=== PATIENT | female | born 1940 | race Caucasian/White ===

== ENCOUNTER → 2019-09-22 13:17 | Outpatient (CLI) | payer OTHER, SELFPAY ==
--- NOTE | ~2019-09-22 | MM_ITS ---
EXAMINATION: MM screening dmitri BI w rosario HISTORY: Screening mammogram TECHNIQUE: Craniocaudal and mediolateral oblique 3-D tomosynthesis images were obtained and synthetic 2-D images were generated. CAD analysis was submitted and interpreted. COMPARISON: Comparison to multiple prior studies sequentially, with oldest reviewed study dated 06/08. BREAST PARENCHYMAL COMPOSITION: There are scattered areas of fibroglandular density. FINDINGS: There is no evidence of suspicious mass, calcification, or architectural distortion to sugg est malignancy in either breast. There has been no suspicious interval change. IMPRESSION: 1. No mammographic evidence of malignancy. 2. Recommend routine screening mammography in one year. BI-RADS Category 1: Negative Reviewed, dictated and finalized at location A.
== END ==
PROVIDERS: PCP Family Medicine; Visit Provider Family Medicine
DX: Z12.31 Encounter for screening mammogram for malignant neoplasm of breast (principal)
CPT/HCPCS: 77063; 77067

== ENCOUNTER → 2020-11-10 15:28 | Outpatient (CLI) | payer OTHER, SELFPAY ==
--- NOTE | ~2020-11-10 | MM_ITS ---
EXAMINATION: MM screening dmitri BI w rosario HISTORY: Screening TECHNIQUE: Craniocaudal and mediolateral oblique 3-D tomosynthesis images were obtained and synthetic 2-D images were generated. CAD analysis was submitted and interpreted. COMPARISON: Comparison to multiple prior studies sequentially, with oldest reviewed study dated 07/26. BREAST PARENCHYMAL COMPOSITION: There are scattered areas of fibroglandular density. FINDINGS: There is no evidence of suspicious mass, calcification, or architectural distortion to sugg est malignancy in either breast. There has been no suspicious interval change. IMPRESSION: 1. No mammographic evidence of malignancy. 2. Recommend routine screening mammography in one year. BI-RADS Category 1: Negative Reviewed, dictated and finalized at location A.
== END ==
PROVIDERS: PCP Family Medicine; Visit Provider Family Medicine
DX: Z12.31 Encounter for screening mammogram for malignant neoplasm of breast (principal)
CPT/HCPCS: 77063; 77067

== ENCOUNTER → 2021-07-26 09:39 | Outpatient (CLI) | payer OTHER, SELFPAY ==
--- NOTE | ~2021-07-26 | XR_ITS ---
XR lumbar spine 2-3V DATE: 07/26/2021 09:59 INDICATION: Sciatica TECHNIQUE: AP, lateral, coned lateral lumbosacral views COMPARISON: None FINDINGS: There is mild levoscoliosis of the lower thoracic and lumbar spine. There is diffuse osteopenia. There is severe degenerative change at the apophyseal joints of the lumbar and lumbosacral spine with associated borderline grade 1/grade 2 anterolisthesis at L4-5 and grade 1 anterolisthesis at L5-S1. There is severe degenerative disc disease throughout the lumbar and lumbosacral spine including loss of disc space height, vacuum phenomenon and degenerative spurring. No fracture or bone destruction is evident. The included lower thoracic and lumbar pedicles are intac t. The sacroiliac joints are intact. Abdominal aortic calcification is noted, without apparent aneurysm. IMPRESSION: Diffuse osteopenia Mild levoscoliosis Severe degenerative disc disease throughout the lumbar and lumbosacral spine Borderline grade 1/grade 2 anterolisthesis at L4-5 and grade 1 anterolisthesis at L5-S1 due to severe degenerative change at the apophyseal joints Reviewed, dictated and finalized at location A. K FITTER
== END ==
PROVIDERS: PCP Family Medicine; Visit Provider Family Medicine
DX: M54.30 Sciatica, unspecified side (principal); M85.88 Other specified disorders of bone density and structure, other site; M51.36 Other intervertebral disc degeneration, lumbar region; M43.16 Spondylolisthesis, lumbar region
CPT/HCPCS: 72100

== ENCOUNTER → 2021-08-08 07:23 | Outpatient (CLI) | payer OTHER, SELFPAY ==
--- NOTE | ~2021-08-08 | MR_ITS ---
EXAMINATION: MR lumbar spine wo con DATE: 08/08/2021 08:36 INDICATION: Lumbar spinal stenosis. TECHNIQUE: Magnetic resonance imaging (MRI) of the lumbar spine was performed without intravenous con trast. Sequences included sagittal T2-weighted FSE, sagittal T2-weighted FS FSE, sagittal T1-weighted FSE, and axial T2-weighted FSE. COMPARISON: Lumbar radiographs dated 07/26/2021 FINDINGS: Mild upper lumbar levocurvature. 6 mm anterolisthesis L4 on L5 and 4-5 mm anterolisthesis L5 on S1. V ertebral body heights are normal. T1 hyperintense hemangiomas at T10 and L2. Probable fatty and fibro vascular degenerative endplate changes at several levels in the lumbar spine. Marrow signal is otherw ise normal. Annular fissures at L1-L2 through L5-S1. Severe right-sided predominant disc height loss at L1-L2. Moderate to severe disc height loss at L4-L5, with right side predominance at L1-L2 and L2- L3 and left side predominance at L3-L4. Mild to moderate disc height loss at L5-S1. Mild right-sided predominant disc height loss at T12-L1. The conus medullaris terminates at L2. There is normal signal in the caudal spinal cord. 7.7 cm left renal cyst. Paravertebral soft tissues are unremarkable. The following disc levels are specifically discussed: T12-L1: Disc is mildly bulging with small central disc protrusion. There is mild bilateral facet join t osteoarthritis. There is no neural foraminal stenosis. There is mild central canal stenosis. L1-L2: Disc is bulging. There is mild left and moderate right facet joint osteoarthritis. There is mi ld left and moderate right neural foraminal stenosis. There is mild central canal stenosis. L2-L3: Disc is bulging. There is hypertrophy of the ligamentum flavum. There is moderate bilateral f acet joint osteoarthritis. There is mild to moderate left and moderate right neural foraminal stenosi s. There is mild to moderate central canal stenosis. L3-L4: Disc is bulging. There is hypertrophy of the ligamentum flavum. There is moderate to severe bi lateral facet joint osteoarthritis. There is moderate right and moderate to severe left neural forami nal stenosis. There is moderate to severe central canal stenosis. L4-L5: Disc is bulging. There is hypertrophy of the ligamentum flavum. There is severe bilateral face t joint osteoarthritis. There is moderate right and moderate to severe left neural foraminal stenosis . There is severe central canal stenosis. L5-S1: Disc is bulging. There is a 6 mm diameter disc extrusion versus sequestered disc fragment at t he anterior aspect of the right neural foramen. There is severe bilateral facet joint osteoarthritis. There is moderate bilateral neural foraminal stenosis. There is minimal central canal stenosis. IMPRESSION: 1. Severe lumbar spondylosis. Reviewed, dictated and finalized at location A. PHONE SOLICITOR
== END ==
PROVIDERS: PCP Family Medicine; Visit Provider Family Medicine
DX: M48.061 Spinal stenosis, lumbar region without neurogenic claudication (principal); M54.50 Low back pain, unspecified; M47.816 Spondylosis without myelopathy or radiculopathy, lumbar region
CPT/HCPCS: 72148

== ENCOUNTER → 2022-01-17 13:45 | Outpatient (CLI) | payer OTHER, SELFPAY ==
--- NOTE | ~2022-01-17 | MM_ITS ---
EXAMINATION: MM screening dmitri BI w rosario HISTORY: Screening mammogram, family history of breast cancer in her sister. TECHNIQUE: Craniocaudal and mediolateral oblique 3-D tomosynthesis images were obtained and synthetic 2-D images were generated. CAD analysis was submitted and interpreted. COMPARISON: 11/10/2020, 09/22/2019 BREAST PARENCHYMAL COMPOSITION: There are scattered areas of fibroglandular density. FINDINGS: RIGHT BREAST: There is no suspicious mass, calcification, or architectural distortion to suggest marissa gnancy. There has been no significant interval change. LEFT BREAST: There is a possible mass in the middle third outer breast 7 cm from the nipple. IMPRESSION: 1. Possible left breast mass. 2. Additional mammographic views and possible breast ultrasound are recommended. BI-RADS Category 0: Incomplete: Needs additional imaging evaluation. Reviewed, dictated and finalized at location A. IMPRESSION: 1. Possible left breast mass. 2. Additional mammographic views and possible breast ultrasound are recommended . BI-RADS Category 0: Incomplete: Needs additional imaging evaluation.
== END ==
PROVIDERS: PCP Family Medicine; Visit Provider Family Medicine
DX: Z12.31 Encounter for screening mammogram for malignant neoplasm of breast (principal); R92.8 Other abnormal and inconclusive findings on diagnostic imaging of breast
CPT/HCPCS: 77063; 77067

== ENCOUNTER 2022-01-20 08:53 | Emergency (ER) | payer OTHER, SELFPAY ==
--- NOTE | ~2022-01-20 | CT_ITS ---
EXAMINATION: CT brain wo con DATE: 01/20/2022 10:16 INDICATION: Ground-level fall, head injury. Patient struck back of head, right posterior cephalohemat vic. Baby aspirin nightly. TECHNIQUE: Computed tomography (CT) of the head was performed without intravenous contrast. The mA wa s adjusted according to patient size. Iterative reconstruction technique was employed. Exam dose: 60 5.33 mGy-cm total exam DLP. COMPARISON: None FINDINGS: Mild posterior right parietal cephalhematoma. No skull fracture. No acute intracranial coup or contrecoup injury is identified. No intracranial mass lesion or hemorrhage or cerebrovascular accident. No midline shift or mass effec t. Bilateral carotid siphon internal carotid artery calcifications. There is nonspecific diminished atte nuation of the cerebral white matter, likely due to chronic small vessel ischemic changes. No subdural or epidural hematoma. The mastoid air cells and included paranasal sinuses are normally developed and aerated. IMPRESSION: Mild right posterior parietal cephalohematoma; no skull fracture or acute intracranial fi nding Cerebral atherosclerosis and chronic small vessel ischemic changes of the cerebral white matter Reviewed, dictated and finalized at Location A. Reviewed, dictated and finalized at location A. IMPRESSION: Mild right posterior parietal cephalohematoma; no skull fracture or acute intracranial finding Cerebral atherosclerosis and chronic small vessel ischemic changes of the cereb ral white matter
[2022-01-20 08:56] VITALS: BP 106/57; PULSE 60; RESP 16; TEMP 36.3; O2SAT 97
--- NOTE | 2022-01-20 09:52 | ED.GENADULT ---
HPI - General Adult General Chief complaint: Fall Stated complaint: Fall, hit head Time Seen by Provider: 01/20/22 09:02 History of Present Illness HPI narrative: 81-year-old female presented to the emergency department for evaluation after having a mechanical fall this morning. Patient states she was bending over to turkey picker her glasses when she became dizzy and fell forward. Patient scraped her right hand on the dresser but also struck her back right head on the dresser as well. Patient denies any loss of consciousness. Related Data Home Medications Medication Instructions Recorded Confirmed aspirin 81 mg tablet,delayed 81 mg PO DAILY 06/08/19 11/21/21 release vthqles-mjaluleqx-kwtk tablet tablet PO 03/10/20 11/21/21 ginkgo biloba 120 mg tablet 120 mg PO DAILY 03/10/20 11/21/21 antiarthritic combination no.2 900 mg PO 03/21/21 11/21/21 mg tablet (glucosamine-chondroitin) Allergies Allergy/AdvReac Type Severity Reaction Status Date / Time clindamycin AdvReac Unknown Unknown Verified 01/20/22 08:55 Review of Systems Review of Systems: CONSTITUTIONAL: Head injury, see HPI EYES: Denies visual changes, redness, or discharge. ENT: Denies rhinorrhea, congestion, sore throat, or otalgia. CARDIOVASCULAR: Denies chest pain, palpitations, or edema. RESPIRATORY: Denies cough or dyspnea. GASTROINTESTINAL: Denies abdominal pain, nausea, vomiting, or diarrhea. GENITOURINARY: Denies dysuria or hematuria. SKIN: See HPI MUSCULOSKELETAL: Denies back pain, joint pain, or myalgia. NEUROLOGIC: Denies headache, numbness, or weakness. [facility] Past Medical History Medical History (Updated 01/20/22 @ 11:57 by Mitchell Hoff MD) Chest pain Obesity Family History Family History Sibling Hypertension Family history of diabetes mellitus in first degree relative Family history of coronary artery disease Mother Family history of diabetes mellitus in first degree relative Family history of coronary artery disease Father Family history of coronary artery disease Social History Social History Smoking status: Never smoker Second hand tobacco smoke exposure: No Alcohol intake: never Substance use: never Substance use type: does not use Gender identity (if verbalized by the patient): Female Sexual Orientation (if Verbalized by the Patient): Straight or Heterosexual Exam Narrative: APPEARANCE: Well appearing, no pain, no distress, well-nourished. HEAD: normocephalic, contusion to posterior right scalp, no laceration EYES: PERRLA/EOMI, conjunctivae clear. NOSE: Normal no drainage EARS:TMS clear with good light reflex. THROAT: Pharynx clear, no exudate. NECK: Supple. No adenopathy, no masses. RESPIRATORY: Airway patent, respirations nonlabored. Clear to auscultation bilaterally, no rales, rhonchi, wheezing. CARDIOVASCULAR: Regular rate and rhythm without murmurs rubs or gallops. ABDOMINAL: Soft, nontender, nondistended, normal bowel sounds MUSCULOSKELETAL: Moves all extremities. Strength/ROM intact, No edema, No calf tenderness. NEURO: Alert. Cranial nerves II through XII intact. Grossly intact SKIN: Superficial skin tear to right palm. Course Course Emergency Course: Patient's head CT was negative for any acute intracranial abnormality. Patient was able to ambulate at baseline. Patient's skin tear on right hand was treated and dressing was applied. Vital Signs Vital signs: Vital Signs Temperature 97.3 F L 01/20/22 08:56 Pulse Rate 60 01/20/22 08:56 Respiratory Rate 16 01/20/22 08:56 Blood Pressure 106/57 L 01/20/22 08:56 Pulse Oximetry 97 01/20/22 08:56 Oxygen Delivery Room Air 01/20/22 08:56 Temperature 97.3 F L 01/20/22 08:56 Pulse Rate 60 01/20/22 08:56 Respiratory Rate 16 01/20/22 08:56 Blood Pressure 106/57 L 01/20/22 08:56 Pulse Oximetry 97 01/20/22 08:5
== END 2022-01-20 13:00 | disposition home or self-care (01) ==
PROVIDERS: Emergency Provider Emergency Medicine; PCP Family Medicine
DX: S09.90XA Unspecified injury of head, initial encounter (principal); S60.511A Abrasion of right hand, initial encounter; E66.9 Obesity, unspecified; Z68.31 Body mass index [BMI] 31.0-31.9, adult; I67.2 Cerebral atherosclerosis; W18.39XA Other fall on same level, initial encounter
CPT/HCPCS: 70450; 99284

== ENCOUNTER → 2022-02-05 07:46 | Outpatient (CLI) | payer OTHER, SELFPAY ==
--- NOTE | ~2022-02-05 | MMUS_ITS ---
EXAMINATION: MM diagnostic dmitri LT w rosario, US breast LT limited HISTORY: Breast composed of scattered areas of fibroglandular density TECHNIQUE: Additional 3-D tomosynthesis images of the left breast were performed and synthetic 2-D im ages were generated. CAD analysis was submitted and interpreted. High resolution Limited left breast ultrasound was performed. COMPARISON: 01/17/2022 BREAST PARENCHYMAL COMPOSITION: Breast composed of scattered areas of fibroglandular density FINDINGS: MAMMOGRAPHIC FINDINGS: There is a persistent focal asymmetry laterally in the left breast. There is a small mass in the uppe r outer quadrant of the left breast, best seen on MLO view. ULTRASOUND: Limited left breast ultrasound: At 1:00, 4 cm from the nipple there is a 4 mm cyst. At 1:00, 6 cm fro m the nipple there is a mildly prominent duct versus cyst. At 2:00, 8 cm from the nipple there is an irregular shaped hypoechoic 6 mm mass with posterior shadowing and internal vascularity. IMPRESSION: 1. Irregular shaped hypoechoic 6 mm left breast mass at 2:00, 8 cm from the nipple. 2. Ultrasound-guided left breast biopsy recommended. BI-RADS category 4, suspicious findings. Reviewed, dictated and finalized at location A. IMPRESSION: 1. Irregular shaped hypoechoic 6 mm left breast mass at 2:00, 8 cm from the nip ple. 2. Ultrasound-guided left breast biopsy recommended. BI-RADS category 4, suspicious findings.
== END ==
PROVIDERS: PCP Family Medicine; Visit Provider Physician Assistant
DX: N63.20 Unspecified lump in the left breast, unspecified quadrant (principal); R92.8 Other abnormal and inconclusive findings on diagnostic imaging of breast
CPT/HCPCS: 76642; 77061; 77065; G0279

== ENCOUNTER 2022-03-09 10:02 | Outpatient (CLI) | payer OTHER, SELFPAY ==
--- NOTE | ~2022-03-09 | MMUS_ITS ---
EXAMINATION: US breast biopsy LT w image, MM post biopsy invasive LT DATE: 03/09/2022 11:50 (accession [id number]), 03/09/2022 11:41 (accession [id number]) INDICATION: Indeterminate mass in the upper outer quadrant of the left breast. Ultrasound-guided core biopsy is requested to evaluate for malignancy. TECHNIQUE AND FINDINGS: The risks and potential benefits of the procedure were discussed with the patient including bleeding and infection. A time out was performed. The skin of the left breast was prepared and draped in usual sterile fashion. 1% lidocaine was used for superficial anesthesia. 1% lidocaine with epinephrine was used for deep anesthesia. A vacuum-assisted biopsy needle was advanced through to the outer edge of the region of interest from a lateral approach utilizing sonographic guidance. A total of five tissue core samples were obtained through the lesion. A tissue marker clip was then placed at the biopsy site. Hemostasis was achieved . A sterile bandage was applied. The patient tolerated procedure well and there was no evidence of immediate complication. The patient was given verbal instructions to return to the Emergency Department in the event of severe breast pa in or rapid breast enlargement. A two view left breast mammogram was obtained to document tissue lupillo er clip placement. IMPRESSION: 1. Successful ultrasound-guided vacuum-assisted biopsy of left breast mass with tissue marker placeme nt. Reviewed, dictated and finalized at location A. IMPRESSION: 1. Successful ultrasound-guided vacuum-assisted biopsy of left breast mass with tissue marker placement.
== END 2022-03-09 10:03 | disposition home or self-care (01) ==
PROVIDERS: PCP Family Medicine; Visit Provider Surgery
DX: C50.112 Malignant neoplasm of central portion of left female breast (principal)
CPT/HCPCS: 19083; 88305; 88342; A4648

== ENCOUNTER 2022-04-03 00:27 | Day surgery (SDC) | payer OTHER, SELFPAY ==
[2022-03-27 13:16] VITALS: BMI 31.6
--- NOTE | 2022-03-27 13:33 | PC.NURSE ---
Report to the Outpatient Waiting Room, entrance under the green pavilion located off [facility], at time _0630_ on date _[id number]_. OR Time: _0930_. Time changes happen often and if your time is changed the preop area will call you the afternoon before. - You and your visitor will be asked to self-screen and do not enter if you have any COVID symptoms. - Only one visitor and NO children visitors are allowed at this time. - The patient visitor is requested to leave or wait in car when not with patient due to restrictions. - A mask is required within the hospital. Patients may have clear liquids (water, carbonated beverages, clear teas, apple juice) until 3 hours prior to surgery with a maximum of 20 ounces. - No food from midnight until time of surgery Take the following medications with a SIP of water the morning of surgery: ___Metoprolol and Gabepentin Medications to discontinue per physician Antiarthritic combination, Calcium,magnesium,zinc, Ginkgo Date to take last dose__Patient already stopped on [phone] Please no make-up, nail citizen of [place], hairspray, perfume, deodorant, or body powder the day of surgery. No jewelry (including any body piercings) or valuables the day of surgery, leave them at home. Please take a shower or bath the night before, or the morning of, surgery with an antibacterial soap. Wear comfortable, loose fitting clothing. - Jewelry must be removed prior to entering the operating room. Rings and piercings that are not removed may be cut off. - The hospital will not accept responsibility for valuables. - Please leave all valuables, including medications, at home the day of surgery. If you are going home after surgery, a licensed special events driver must drive you home. - NO public transportation without another adult. - We recommend that an adult stay with you for 24 hours following discharge. - We also recommend that you do not drive, make important decision, drink alcoholic beverages, or take any drugs that were not prescribed by your health care provider for at least 24 hours after your discharge time. Follow any additional instructions given to you from your surgeon. If you or anyone in your household have experienced Covid symptoms in the past week, please notify your surgeon or the nurse liaison at the phone number below for possible testing. Telephone instructions given to _Patient__and asked if any additional questions and then verbalized understanding. Patient advised to call surgeon office or pre surgery nurse liaison [phone] if any additional questions.
[2022-04-03] VITALS (8 sets, daily range): BP systolic 107–142; BP diastolic 57–80; PULSE 60–69; RESP 14–20; TEMP 36–36.6; O2SAT 94–99
--- NOTE | ~2022-04-03 | MM_ITS ---
MM surgical specimen LT DATE: 04/03/2022 09:59 INDICATION: Left breast cancer TECHNIQUE: Single noncompression digital mammographic exposure of surgical biopsy specimen COMPARISON: None FINDINGS: Biopsy marker and wire are present within the biopsy specimen IMPRESSION: Successful surgical excision of biopsy marker Reviewed, dictated and finalized at [facility]. Reviewed, dictated and finalized at location A.
--- NOTE | ~2022-04-03 | MM_ITS ---
MM needle loc LT DATE: 04/03/2022 08:40 INDICATION: Preoperative mammographically guided wire localization of left breast biopsy marker TECHNIQUE: The purpose of the procedure, technique and potential complications were discussed with noah e patient. The patient indicated understanding and gave consent. Timeout procedure confirmed proper patient and procedure and side. The left breast was placed in compression with biopsy grid apparatus over the lateral aspect of the l eft breast. The skin was prepared with sterile Betadine solution. 1% lidocaine local anesthetic was a dministered to the skin. A 5 cm [place] Mammalok needle was introduced from a lateral approach into the area of the biopsy marker in the outer mid left breast. Needle depth was appropriate upon subsequent craniocaudal exposure. The wire was then engaged to the tip of the needle and the needle withdrawn. Final ML and CC views reveal the wire in immediate contiguity with the biopsy marker at the outer mid left breast. The patient was very cooperative and tolerated the procedure well, without complaint or apparent comp lication. IMPRESSION: Successful preoperative mammographically guided wire localization of biopsy marker in the outer mid left breast Reviewed, dictated and finalized at [facility]. Reviewed, dictated and finalized at location A. IMPRESSION: Successful preoperative mammographically guided wire localization o f biopsy marker in the outer mid left breast
--- NOTE | ~2022-04-03 | NM_ITS ---
NM sentinel node inject only DATE: 04/03/2022 09:12 INDICATION: Invasive ductal carcinoma. [place] node localization for axillary node surgical dissecti on TECHNIQUE: The purpose of the procedure, technique and potential locations were discussed with the danitza hui. The patient verbalized understanding and gave consent. Timeout procedure was performed. 4. Equally divided doses totaling cumulative 1.030 mCi 99m technetium Lymphoseek were injected subder shabnam at 12:00, 3:00, 6:00 and 9:00 periareolar positions. The patient tolerated procedure well, without complaint. IMPRESSION: Preoperative subdermal periareolar radiopharmaceutical injections for axillary node local ization at surgery Reviewed, dictated and finalized at Location [facility]. Reviewed, dictated and finalized at location A. IMPRESSION: Preoperative subdermal periareolar radiopharmaceutical injections f or axillary node localization at surgery
--- NOTE | 2022-04-03 08:05 | SUR.PREOP ---
0736: PT TAKEN TO MAMMOGRAPHY VIA W/C FOR L BREAST MAMM/US GUIDED NEEDLE LOC FOLLOWED BY L BREAST [facility]. ACCOMP BY Sekou FLORES RN
[2022-04-03] MEDS: LACTATED RINGERS 1,000 ML 30 ML IV CONT ×2 (08:30→10:44)
[2022-04-03] MEDS: KETOROLAC 15 MG/ML VIAL (*BKC) IV PUSH (08:30)
[2022-04-03] MEDS: ACETAMINOPHEN 500 MG TABLET 1000 MG PO (08:30)
--- NOTE | 2022-04-03 08:42 | WPDANESEPPF ---
Anes - Initial Pre Proc Eval Procedure: Operation Date: 04/03/22 09:30 Proposed Procedures p Left Breast Ultrasound And/Or Mammogram Guided Needle Localization - Rajesh Kirby DO s Left Breast Lumpectomy With [place] Lymph Node Biopsy - Rajesh Kirby DO Date/Time: 04/03/22 08:42 Surgeon: Rajesh Kirby DO Pre Op Diagnosis: invasive ductal carcinoma of left breast Patient Data Age: 81 Gender: F Height: 1.52 m Weight: 73.6 kg Allergies Allergy/AdvReac Type Severity Reaction Status Date / Time clindamycin AdvReac Unknown Unknown Verified 04/03/22 08:01 Home Medications Medication Instructions Recorded Confirmed Type aspirin 81 mg tablet,delayed 81 mg PO DAILY 06/08/19 04/03/22 History release ikgiyxj-qmtrnwmqm-xnpj tablet 1 tablet PO DAILY 03/10/20 04/03/22 History ginkgo biloba 120 mg tablet 120 mg PO DAILY 03/10/20 04/03/22 History antiarthritic combination no.2 900 2,900 mg PO DAILY 03/21/21 04/03/22 History mg tablet (glucosamine-chondroitin) simvastatin 20 mg tablet See Rx Instructions .Route 03/27/21 04/03/22 Rx .COMPLEX #90 tabs fenofibrate nanocrystallized 145 145 mg PO DAILY #90 tabs 04/03/21 04/03/22 Rx mg tablet blood sugar diagnostic (Contour #100 ea 07/25/21 04/03/22 Rx Next Test Strips) gabapentin 300 mg capsule See Rx Instructions .Route 08/30/21 04/03/22 Rx .COMPLEX #270 caps lancets (Microlet Lancet) #100 ea 11/29/21 04/03/22 Rx metformin 500 mg tablet See Rx Instructions .Route 03/13/22 04/03/22 Rx .COMPLEX #90 tabs metoprolol tartrate 50 mg tablet See Rx Instructions .Route 03/19/22 04/03/22 Rx .COMPLEX #180 tabs Patient hx anesthesia problems: none Family hx anesthesia problems: none Results Review: All pre-operative results and documents have been reviewed as part of the pre-operative evaluation. [facility] Past Medical History Medical History Breast cancer, left Chest pain Diabetes Obesity Sleep apnea Family History Family History Sibling Hypertension Family history of diabetes mellitus in first degree relative Family history of coronary artery disease Mother Family history of diabetes mellitus in first degree relative Family history of coronary artery disease Father Family history of coronary artery disease Social History Social History Smoking status: Never smoker Second hand tobacco smoke exposure: No Alcohol intake: never Substance use: never Substance use type: does not use Living arrangements: alone Gender identity (if verbalized by the patient): Female Sexual Orientation (if Verbalized by the Patient): Straight or Heterosexual Spiritual care concerns: No Anes - Eval Final PreProcedure Day of Procedure 04/03/22 08:42 Patient weight: obese Heart: regular rate and rhythm Lungs: clear to auscultation Airway: Mallampati scale class II Neurological: other (alert) Last oral intake: >/= 8 hours ASA classification: III Emergent: no Anesthetic plan: proceed Anesthesia type and monitoring: general LMA and standard monitoring Results Review: All pre-operative results and documents have been reviewed as part of the pre-operative evaluation. Informed Consent: The patient's anesthetic plan and its attendant risks and benefits were discussed with the patient/family/POA. Questions were solicited and answers provided to the satisfaction of the patient/family/POA.
--- NOTE | 2022-04-03 08:43 | PM.IMHP ---
H&P: HPI History of Present Illness Date/Time: 04/03/22 08:43 Chief Complaint: Left breast cancer Narrative: This is an 81-year-old woman who presents for lumpectomy and sentinel lymph node biopsy. She had an abnormal mammogram and underwent ultrasound-guided core needle biopsy. Pathology showed evidence of invasive ductal carcinoma. Discussions were made with the patient about her treatment options and she wished to proceed with lumpectomy and sentinel node biopsy. She reports no changes since last seen in the office. Review of Systems Review of Systems: All systems reviewed & are unremarkable except as noted in HPI and below Constitutional: Constitutional: Denies chills, Denies fever(s), Denies headache(s) and Denies weight loss Eyes: Eyes: Denies change in vision ENT: Denies dizziness, Denies headache(s), Denies neck mass and Denies throat swelling Cardiovascular: Cardiovascular: Denies chest pain, Denies lightheadedness and Denies dyspnea Respiratory: Respiratory: Denies cough, Denies dyspnea and Denies wheezing Gastrointestinal: Gastrointestinal: Denies abdominal pain, Denies change in bowel habits, Denies nausea and Denies vomiting Genitourinary: Genitourinary: Denies hematuria and Denies dysuria Musculoskeletal: Musculoskeletal: Reports as per HPI Integumentary/Breasts: Skin/Breast: Reports as per HPI Neurologic: Denies dizziness and Denies headache(s) Allergic/Immunologic: Allergic/Immunologic: Denies throat swelling and Denies wheezing PMF Past Medical History Medical History Breast cancer, left Chest pain Diabetes Obesity Sleep apnea Family History Family History Sibling Hypertension Family history of diabetes mellitus in first degree relative Family history of coronary artery disease Mother Family history of diabetes mellitus in first degree relative Family history of coronary artery disease Father Family history of coronary artery disease Social History Social History Smoking status: Never smoker Second hand tobacco smoke exposure: No Alcohol intake: never Substance use: never Substance use type: does not use Living arrangements: alone Gender identity (if verbalized by the patient): Female Sexual Orientation (if Verbalized by the Patient): Straight or Heterosexual Spiritual care concerns: No Meds Home Medications and Allergies Home Medications Medication Instructions Recorded Confirmed Type aspirin 81 mg tablet,delayed 81 mg PO DAILY 06/08/19 04/03/22 History release mqjtfsp-vlbsdarql-qcxh tablet 1 tablet PO DAILY 03/10/20 04/03/22 History ginkgo biloba 120 mg tablet 120 mg PO DAILY 03/10/20 04/03/22 History antiarthritic combination no.2 900 2,900 mg PO DAILY 03/21/21 04/03/22 History mg tablet (glucosamine-chondroitin) simvastatin 20 mg tablet See Rx Instructions .Route 03/27/21 04/03/22 Rx .COMPLEX #90 tabs fenofibrate nanocrystallized 145 145 mg PO DAILY #90 tabs 04/03/21 04/03/22 Rx mg tablet blood sugar diagnostic (Contour #100 ea 07/25/21 04/03/22 Rx Next Test Strips) gabapentin 300 mg capsule See Rx Instructions .Route 08/30/21 04/03/22 Rx .COMPLEX #270 caps lancets (Microlet Lancet) #100 ea 11/29/21 04/03/22 Rx metformin 500 mg tablet See Rx Instructions .Route 03/13/22 04/03/22 Rx .COMPLEX #90 tabs metoprolol tartrate 50 mg tablet See Rx Instructions .Route 03/19/22 04/03/22 Rx .COMPLEX #180 tabs Allergies Allergy/AdvReac Type Severity Reaction Status Date / Time clindamycin AdvReac Unknown Unknown Verified 04/03/22 08:01 Exam Const: General: no acute distress and alert Orientation/consciousness: patient oriented x3 HENMT: Head: normocephalic and atraumatic Ears: hearing grossly normal bilaterally General nose exam: Normal nares p
--- NOTE | 2022-04-03 08:45 | WPDHPUPDATE1 ---
History and Physical Update Update Date/Time: 04/03/22 08:45 History and Physical has been reviewed, including an updated exam of the patient. There are NO changes in the patient's condition. Risks, benefits, and alternatives have been discussed and questions answered. Patient agrees to proceed with procedure.
[2022-04-03 09:00] LABS: Glucose Point of Care 147 mg/dl (65-105)
[2022-04-03] MEDS: ceFAZolin 2 GM/D5W 50 ML 2 GM/50 ML BAG IVPB (09:05)
--- NOTE | 2022-04-03 09:57 | SUR.OPER ---
Addendum entered by Taya Brooke RN 04/03/22 10:05: [facility] calls with confirmation of markers within specimen (Dr. Kirby present for report) - 1001 Original Note: Mammography notified of Breast Lumpectomy incision - 933 Excision - 951 Specimen collected and out of room - 953 Notified Mammography Information Technology Administrator specimen en route - 953 Nia Qriket recieved - 957
[2022-04-03] MEDS: BUPIVACAINE/EPINEPHRINE 0.25% 50 ML VIAL INFILTRATE (10:01)
[2022-04-03] MEDS: ISOSULFAN BLUE 1% INJ 5 ML VIAL XX (10:04)
--- NOTE | 2022-04-03 10:20 | SUR.OPER ---
[place] Lymph Node Biopsy Insicion made at 1006 [place] Lymph Node Biopsy Excised @ 1016 [place] Lymph Node Biopsy Recieved by Lizbeth in pathology for Fresh/Permanent collection - [id number]
--- NOTE | 2022-04-03 10:32 | W.PM.PROC2 ---
Procedure Note - Detailed Date of Procedure 04/03/22 Pre-op Diagnosis invasive ductal carcinoma of left breast Post-op Diagnosis Same Procedure Performed 1. Wire localized left breast lumpectomy 2. Left axillary sentinel lymph node biopsy Surgeon Rajesh Kirby, DO Anesthesia General and Local (0.25% bupivacaine with epinephrine) Indications This is an 81-year-old woman who presented with a recent abnormal mammogram. She denied any palpable abnormalities. She underwent ultrasound-guided left breast biopsy which showed evidence of invasive ductal carcinoma. Discussions were made with the patient about treatment options and decision was made to proceed with left breast wire localized lumpectomy with left axillary sentinel lymph node biopsy. Findings Ultrasound-guided wire localization was performed by the Radiology Department preoperatively. I then infiltrated the periareolar region with 4 mL of isosulfan blue. Nuclear isotope was also infiltrated by radiology department in the periareolar region. The wire was placed in the left lateral breast with 4.5 cm of the wire exposed and total length of the wire 11 cm. I carefully performed a lumpectomy around the wire and marked the specimen with a short suture superior and long suture lateral. The specimen was sent to the Radiology Department and the abnormality was confirmed radiographically within the specimen. This was then sent to the lab for pathology. I then performed left axillary sentinel lymph node biopsy. A deep left axillary sentinel lymph node was identified with gamma uptake around 720. This was also identified as a blue lymph node. Once this lymph node was removed there was no further gamma uptake within the axillary contents. No other sentinel lymph nodes were identified. Description of Procedure Procedure as well as risks, benefits, and alternatives were discussed with the patient. Written consent was obtained and placed in chart prior to procedure. Patient was brought back to surgical suite. She was placed supine on operating table. Time-out was done to confirm patient and procedure. She was then intubated by the anesthesia department. Her left breast and axillary region was prepped and draped in sterile fashion using chlorhexidine prep. 0.25% bupivacaine with epinephrine was infiltrated locally around the areas for incision. A 4 cm curvilinear incision was made directly over the wire using a 15 blade scalpel. Electrocautery was used for hemostasis and for dissection through the subcutaneous tissue. The breast tissue around the wire was carefully dissected free using electrocautery. I carefully dissected wide enough around the entire wire and dissected deep enough to get around the deepest portion of the wire. The specimen was completely removed and it was marked with a short suture superior and long suture lateral. This was then sent to Radiology for confirmation of the abnormality within the specimen. It was then sent to the lab for pathology. The wound bed was then inspected and hemostasis appeared adequate and no other abnormalities were noted. The deep tissue was then reapproximated using 3-0 Vicryl simple interrupted sutures and the skin was approximated using 4 Monocryl running subcuticular suture. Exofin glue was applied on top. I then moved my attention over to the left axillary region. The gamma probe was used to identify the area of increased uptake in the left axilla. A 4 cm oblique incision was made over this region using a 15 blade scalpel. Electrocautery was used for hemostasis and for dissection through the subcutaneous tissue. The clavipectoral fascia was then incised using electrocautery and the deep axillary contents were entered. I then confirmed that the lymph node was within the deep axillary contents using the gamma probe and then carefully inspected the deep axillary contents for any blue dye. I was able to identify a blue lymph node and this was caref
[2022-04-03 10:55] LABS: Glucose Point of Care 116 mg/dl (65-105)
== END 2022-04-03 12:35 | disposition home or self-care (01) ==
PROVIDERS: PCP Family Medicine; Visit Provider Surgery
PROC: (CPT 19301; principal; 2022-04-03 09:30)
PROC: (CPT 19301; 2022-04-03 09:30)
DX: C50.812 Malignant neoplasm of overlapping sites of left female breast (principal); E11.9 Type 2 diabetes mellitus without complications; G47.30 Sleep apnea, unspecified; E66.9 Obesity, unspecified; Z68.32 Body mass index [BMI] 32.0-32.9, adult; Z79.82 Long term (current) use of aspirin; Z79.84 Long term (current) use of oral hypoglycemic drugs
CPT/HCPCS: 19301; 38525; 19281; 38792; 76098; 82948; 88307; A9270; A9520; C1769; J0690; J1885; J2405; J2704; J3010; J7120

== ENCOUNTER 2022-08-27 09:42 | Outpatient (CLI) | payer OTHER, SELFPAY ==
[2022-08-27 09:53] LABS: Basophils Absolute Auto 0.1 K/mm3 (0.0-0.1); Basophils Percent Auto 1.2 % (0.2-1.2); Eosinophils Absolute Auto 0.4 K/mm3 (0-0.3); Eosinophils Percent Auto 4.6 % (0-4.4); Hematocrit 42.7 % (37.0-47.0); Immature Granulocyte Absolute 0.01 K/mm3 (0.00-0.031); Immature Granulocyte Percent A 0.1 % (0-0.5); Lymphocytes Absolute Auto 3.03 K/mm3 (0.9-3.2); Lymphocytes Percent Auto 39.7 % (18.3-44.2); Mean Corpuscular HGB Conc 32.8 g/dl (32-36); Mean Corpuscular Hemoglobin 29.8 pg (26-34); Mean Corpuscular Volume 90.9 fl (80-100); Mean Platelet Volume 10.8 fl (7.4-10.4); Monocytes Absolute Auto 0.7 K/mm3 (0.1-0.6); Monocytes Percent Auto 9.2 % (2.6-8.5); Neutrophils Absolute Auto 3.5 K/mm3 (1.3-6.7); Neutrophils Percent Auto 45.2 % (45.5-73.1); Platelet Count Result 321 k/mm3 (150-375); Red Cell Distribution Width 13.4 % (11.5-14.5); White Blood Count 7.6 K/mm3 (4.5-10.0)
[2022-08-27 09:59] LABS: Blood Urea Nitrogen 26 mg/dL (8-26); Carbon Dioxide 29 mmol/L (22-30); Chloride 105 mmol/L (98-109); Estimated Glomerular Filt Rate 36; Glucose 112 mg/dL (70-105); Ionized Calcium (POC) 1.37 mmol/L (1.11-1.31); Potassium 4.3 mmol/L (3.5-4.9); Sodium 144 mmol/L (138-146)
[2022-08-27 10:27] LABS: Alanine Aminotransferase 24 U/L (6-35); Albumin Level 4.3 g/dL (3.5-5.1); Alkaline Phosphatase 29 U/L (38-126); Anion Gap 5 mmol/L (8-16); Aspartate Amino Transferase 40 U/L (14-36); Bilirubin,Total 0.4 mg/dL (0.2-1.3); Blood Urea Nitrogen 25 mg/dL (7-17); Calcium 9.8 mg/dL (8.4-10.2); Carbon Dioxide 30 mmol/L (22-30); Chloride 107 mmol/L (98-107); Estimated Glomerular Filt Rate 43; Glucose 108 mg/dL (65-110); Potassium 4.3 mmol/L (3.4-5.0); Sodium 142 mmol/L (137-145)
== END 2022-08-27 09:43 | disposition home or self-care (01) ==
LOC: ANHLAB 09:43
PROVIDERS: PCP Family Medicine; Visit Provider Internal Medicine Hematology & Oncology
DX: C50.412 Malignant neoplasm of upper-outer quadrant of left female breast (principal); Z17.0 Estrogen receptor positive status [ER+]
CPT/HCPCS: 36415; 80047; 80053; 85025

== ENCOUNTER → 2022-10-15 11:16 | Outpatient (CLI) | payer OTHER, SELFPAY ==
--- NOTE | ~2022-10-15 | XR_ITS ---
Left ankle Technique: AP and lateral views were obtained. Clinical History: Pain Findings: No acute fracture or dislocation is seen. Osseous alignment is anatomic. Plantar calcaneal spur present. Ankle mortise and other visualized joint spaces are preserved. Soft tissues are otherw ise unremarkable. Impression: Plantar calcaneal spur, otherwise unremarkable exam. Reviewed, dictated and finalized at location . Impression: Plantar calcaneal spur, otherwise unremarkable exam.
== END ==
PROVIDERS: PCP Family Medicine; Visit Provider Family Medicine
DX: M25.572 Pain in left ankle and joints of left foot (principal); M77.32 Calcaneal spur, left foot
CPT/HCPCS: 73562; 73600

== ENCOUNTER 2022-10-17 08:30 | Outpatient (CLI) | payer OTHER, SELFPAY ==
[2022-10-17 09:05] LABS: Hemoglobin 13.3 g/dL (12.0-15.0); Mean Corpuscular HGB Conc 32.4 g/dl (32-36); Mean Corpuscular Hemoglobin 29.4 pg (26-34); Mean Corpuscular Volume 90.7 fl (80-100); Mean Platelet Volume 10.8 fl (7.4-10.4); Platelet Count Result 258 k/mm3 (150-375); Red Blood Count 4.52 M/mm3 (4.2-5.4); Red Cell Distribution Width 12.7 % (11.5-14.5); White Blood Count 7.2 K/mm3 (4.5-10.0)
[2022-10-17 10:39] LABS: Alanine Aminotransferase 24 U/L (6-35); Albumin Level 3.9 g/dL (3.5-5.1); Alkaline Phosphatase 26 U/L (38-126); Anion Gap 4 mmol/L (8-16); Aspartate Amino Transferase 29 U/L (14-36); Bilirubin,Total 0.6 mg/dL (0.2-1.3); Blood Urea Nitrogen 30 mg/dL (7-17); Calcium 10.8 mg/dL (8.4-10.2); Carbon Dioxide 32 mmol/L (22-30); Chloride 106 mmol/L (98-107); Cholesterol 125 mg/dL (0-200); Estimated Glomerular Filt Rate 36; Glucose 106 mg/dL (65-110); HDL Direct 32 mg/dL; Potassium 4.1 mmol/L (3.4-5.0); Sodium 142 mmol/L (137-145); Triglycerides 133 mg/dL (<150)
[2022-10-17 10:49] LABS: Vitamin D 25 Hydroxy > 126.0 ng/mL
[2022-10-17 10:50] LABS: LDL Cholesterol Direct 70 mg/dL
[2022-10-17 10:54] LABS: Appearance Urine Cloudy (Clear); Bacteria Urine 1+ /hpf; Bilirubin Urine Negative (Negative); Blood Urine Negative (Negative); Calcium Oxalate Crystals Urine Present /hpf; Color Urine Yellow (Yellow); Glucose Urine UA Negative (Negative); Ketones Urine Negative (Negative); Leukocyte Esterase Ur 1+ LEU/UL (NEGATIVE); Need Manual Microscopic Reviewed; Nitrate Urine Positive (Negative); Non Pathogenic Casts 0-2; Protein Urine Negative (Negative); Specific Grav Ur 1.013 (1.001-1.035); Squamous Epithelial Cell Urine None seen /hpf (Few); Urobilinogen Urine 0.2 mg/dL (<2.0); WBC Urine 21-50 /hpf (0-3); pH Urine 5.5 (5.0-9.0)
[2022-10-17 11:00] LABS: Add Urine Microscopic? YES
[2022-10-17 11:01] LABS: Creatinine Urine 74.9 mg/dL
[2022-10-17 11:06] LABS: MALB Creatinine Ratio 17.1 mg/g (0-30); Microalbumin Urine Random 12.8 mg/L (0-16.7)
== END 2022-10-17 08:31 | disposition home or self-care (01) ==
LOC: ANHLAB 08:32
PROVIDERS: PCP Family Medicine; Visit Provider Family Medicine
DX: R53.83 Other fatigue (principal); I12.9 Hypertensive chronic kidney disease with stage 1 through stage 4 chronic kidney disease, or unspecified chronic kidney disease; E78.5 Hyperlipidemia, unspecified; E55.9 Vitamin D deficiency, unspecified; E11.22 Type 2 diabetes mellitus with diabetic chronic kidney disease; N18.30 Chronic kidney disease, stage 3 unspecified
CPT/HCPCS: 36415; 80053; 80061; 81001; 82043; 82306; 83036; 84443; 85027

== ENCOUNTER 2022-10-18 15:54 | Outpatient (CLI) | payer OTHER, SELFPAY ==
[2022-10-18 17:11] LABS: Influenza A QL RT-PCR Negative (Negative); Influenza B QL RT-PCR Negative (Negative); SARS-CoV-2 RNA PCR Negative
== END 2022-10-18 15:55 | disposition home or self-care (01) ==
PROVIDERS: PCP Family Medicine; Visit Provider Physician Assistant
DX: R05.9 Cough, unspecified (principal); Z20.822 Contact with and (suspected) exposure to COVID-19
CPT/HCPCS: 87636

== ENCOUNTER 2022-10-22 13:45 | Outpatient (CLI) | payer OTHER, SELFPAY ==
--- NOTE | ~2022-10-22 | XR_ITS ---
EXAMINATION: XR chest 2V 10/22/2022 14:16 INDICATION: Cough PROCEDURE: 2 view chest COMPARISON: 11/12/2012 FINDINGS: The lungs are clear. The cardiomediastinal silhouette is within normal limits. There are no pleural effusions. There is no pneumothorax suspected. There is a calcified granuloma in the rig ht middle lobe. IMPRESSION: 1: NO ACUTE CARDIOPULMONARY DISEASE. Reviewed, dictated and finalized at location A.
== END 2022-10-22 13:46 | disposition home or self-care (01) ==
PROVIDERS: PCP Family Medicine; Visit Provider Family Medicine
DX: R05.9 Cough, unspecified (principal)
CPT/HCPCS: 71046

== ENCOUNTER 2022-10-28 15:39 | Observation (INO) | payer OTHER, SELFPAY ==
[2022-10-28] VITALS (11 sets, daily range): BP systolic 150–194; BP diastolic 67–93; PULSE 56–75; RESP 15–18; TEMP 35.9–36.6; O2SAT 95–98; BMI 31.1
--- NOTE | ~2022-10-28 | CT_ITS ---
EXAMINATION: CT brain wo con DATE: 10/28/2022 16:57 INDICATION: dizziness, confusion . TECHNIQUE: Computed tomography (CT) of the head was performed without intravenous contrast. The mA wa s adjusted according to patient size. Iterative reconstruction technique was employed. The dose-lengt h product was 605.33 mGy-cm. COMPARISON: 01/20/2022. FINDINGS: No acute intracranial hemorrhage or extra-axial fluid collection. No hydrocephalus, mass, or herniation. No acute ischemic infarct. Unremarkable dural venous sinus attenuation. No acute osseous abnormality. Aerated secretions in the inferior frontal ethmoid and bilateral maxillary sinuses, the remaining aer ated spaces are clear. Mild atrophy and chronic white matter change. Atherosclerotic intracranial calcification. Bilateral l ens replacements. IMPRESSION: No acute intracranial process.. Paranasal sinus findings may represent acute sinusitis in the appropr iate clinical context. Reviewed, dictated and finalized at location K. IMPRESSION: No acute intracranial process.. Paranasal sinus findings may represent acute si nusitis in the appropriate clinical context.
--- NOTE | ~2022-10-28 | XR_ITS ---
EXAMINATION: XR chest 1V portable Exam Date/Time: 10/28/2022 17:15 CDT HISTORY: pneumonia, CONFUSION, HTN, HX OF BRONCHITIS Comparison: None available. RESULT: Lines, tubes, and devices: None. Lungs and pleura: Streaky bibasilar scar/atelectasis. Cardiomediastinal silhouette: Stable. Other: No acute osseous or upper abdominal finding. IMPRESSION: No acute cardiopulmonary process. Reviewed, dictated and finalized at location K.
--- NOTE | ~2022-10-28 | XR_ITS ---
EXAMINATION: XR abdomen/kub 1V INDICATION: Nausea and vomiting TECHNIQUE: Supine views of the abdomen were obtained on 2 radiographs. COMPARISON: None FINDINGS: The bowel gas pattern is nonspecific. No dilated loops of bowel are evident. There is moder ate volume of colonic stool. Severe lumbar spondylosis is noted. IMPRESSION: 1. No radiographic correlate for the patient's symptoms. Reviewed, dictated and finalized at location L.
--- NOTE | ~2022-10-28 | MR_ITS ---
EXAMINATION: MR brain/brain stem wo/w con DATE: 10/29/2022 08:03 INDICATION: Headache. Dizziness. TECHNIQUE: Magnetic resonance imaging (MRI) of the brain and brainstem was performed without and with 15 mL MultiHance intravenous contrast. COMPARISON: Head CT 10/28/2022 FINDINGS: There is no intracranial hemorrhage, acute infarction, or abnormal intracranial mass lesion . There are scattered areas of nonspecific increased T2-weighted signal intensity in the cerebral whi te matter, which is within normal limits for the patient's age. The ventricles are normal in size. Th ere is mucosal thickening in the paranasal sinuses. There is dependent fluid in the maxillary sinuses . There are likely changes of ocular lens replacement surgeries. The mastoid air cells are normal. IMPRESSION: 1. Normal aging brain. Reviewed, dictated and finalized at location A. IMPRESSION: 1. Normal aging brain.
--- NOTE | 2022-10-28 15:58 | ECG_ITS ---
Measurements Intervals [place] Rate: 57 P: 35 OK: 155 QRS: 26 QRSD: 74 T: 30 QT: 406 QTc: 397 Interpretive Statements SINUS BRADYCARDIA OTHERWISE NORMAL ELECTROCARDIOGRAM NO PREVIOUS ECG AVAILABLE FOR COMPARISON Electronically Signed On 10-29-2022 7:00:54 CDT by Mahamed Hall M.D.
--- NOTE | 2022-10-28 16:10 | PC.NURSE ---
pt c/o dizziness. denies any cp or sob. daughter states that she has been taking doxycycline and tessalon pearls for possible pneumonia. states that pt had cxr done and it didn't show pneumonia. concerned that pt's bp is elevated and states that she told pt not to take her other meds because she needs to take the medications for the pneumonia. states pt has had other home medications since saturday. also states that pt seems confused. pt A&Ox4
[2022-10-28 16:13] LABS: Basophils Absolute Auto 0.1 K/mm3 (0.0-0.1); Basophils Percent Auto 0.8 % (0.2-1.2); Eosinophils Absolute Auto 0.2 K/mm3 (0-0.3); Eosinophils Percent Auto 2.3 % (0-4.4); Hematocrit 42.4 % (37.0-47.0); Hemoglobin 14.2 g/dL (12.0-15.0); Immature Granulocyte Absolute 0.02 K/mm3 (0.00-0.031); Immature Granulocyte Percent A 0.2 % (0-0.5); Lymphocytes Absolute Auto 4.18 K/mm3 (0.9-3.2); Lymphocytes Percent Auto 43.4 % (18.3-44.2); Mean Corpuscular HGB Conc 33.5 g/dl (32-36); Mean Corpuscular Hemoglobin 29.8 pg (26-34); Mean Corpuscular Volume 89.1 fl (80-100); Monocytes Absolute Auto 0.8 K/mm3 (0.1-0.6); Monocytes Percent Auto 8.2 % (2.6-8.5); Neutrophils Absolute Auto 4.3 K/mm3 (1.3-6.7); Neutrophils Percent Auto 45.1 % (45.5-73.1); Platelet Count Result 330 k/mm3 (150-375); Red Blood Count 4.76 M/mm3 (4.2-5.4); Red Cell Distribution Width 12.9 % (11.5-14.5); White Blood Count 9.6 K/mm3 (4.5-10.0)
[2022-10-28 16:24] LABS: INR 1.2; Partial Thromboplastin Time 25.3 SECONDS (22.3-36.8); Prothrombin Time 14.5 Seconds (11.1-14.7)
[2022-10-28 16:29] LABS: Alanine Aminotransferase 26 U/L (6-35); Albumin Level 4.2 g/dL (3.5-5.1); Alkaline Phosphatase 28 U/L (38-126); Anion Gap 9 mmol/L (8-16); Aspartate Amino Transferase 28 U/L (14-36); Bilirubin,Total 0.7 mg/dL (0.2-1.3); Blood Urea Nitrogen 26 mg/dL (7-17); Calcium 10.8 mg/dL (8.4-10.2); Carbon Dioxide 26 mmol/L (22-30); Chloride 104 mmol/L (98-107); Estimated CRCL calculation 34 ml/min; Estimated Glomerular Filt Rate 53; Glucose 99 mg/dL (65-110); Potassium 3.9 mmol/L (3.4-5.0); Sodium 139 mmol/L (137-145)
--- NOTE | 2022-10-28 17:31 | ED.GENADULT ---
HPI - General Adult General Chief complaint: Dizziness Stated complaint: dizzy Time Seen by Provider: 10/28/22 16:00 History of Present Illness HPI narrative: 82-year-old female presented to the emergency department for evaluation of increased confusion and intermittent dizziness. Patient had been started on doxycycline for a suspected pneumonia. Patient has been taking the doxycycline but has not been taking her normal medications. Patient only has a few doses of Doxy for completion. family states that the confusion has been persistent and patient has been sleeping more. Patient states she was having some intermittent chest pain but denies any chest pain currently. Patient does have a prior history of chronic kidney disease, type 2 diabetes, high cholesterol. Related Data Home Medications Medication Instructions Recorded Confirmed aspirin 81 mg tablet,delayed 81 mg PO DAILY 06/08/19 10/22/22 release ikvfdfs-gubphkspf-jecz tablet 1 tablet PO DAILY 03/10/20 10/22/22 ginkgo biloba 120 mg tablet 120 mg PO DAILY 03/10/20 10/22/22 antiarthritic combination no.2 900 2,900 mg PO DAILY 03/21/21 10/22/22 mg tablet (glucosamine-chondroitin) anastrozole 1 mg tablet 1 mg PO DAILY 06/25/22 10/22/22 Allergies Allergy/AdvReac Type Severity Reaction Status Date / Time clindamycin AdvReac Unknown Unknown Verified 10/22/22 13:07 Review of Systems Review of Systems: All systems reviewed & are unremarkable except as noted in HPI and below PMFSH Past Medical History Medical History Breast cancer, left Chest pain Diabetes Obesity Sleep apnea Surgical History Surgical History S/P lumpectomy, left breast Needle localized Left Breast lumpectomy w/ [facility] on 04/03/22. Family History Family History Sibling Hypertension Family history of diabetes mellitus in first degree relative Family history of coronary artery disease Mother Family history of diabetes mellitus in first degree relative Family history of coronary artery disease Father Family history of coronary artery disease Social History Social History Smoking status: Never smoker Second hand tobacco smoke exposure: No Alcohol intake: never Substance use: never Substance use type: does not use Living arrangements: alone Occupation/Education: retired Gender identity (if verbalized by the patient): Female Sexual Orientation (if Verbalized by the Patient): Straight or Heterosexual Spiritual care concerns: No Exam Narrative: APPEARANCE: Well appearing, no pain, no distress, well-nourished. HEAD: normocephalic, atraumatic. EYES: PERRLA/EOMI, conjunctivae clear. NOSE: Normal no drainage EARS:TMS clear with good light reflex. THROAT: Pharynx clear, no exudate. NECK: Supple. No adenopathy, no masses. RESPIRATORY: Airway patent, respirations nonlabored. Clear to auscultation bilaterally, no rales, rhonchi, wheezing. CARDIOVASCULAR: Regular rate and rhythm without murmurs rubs or gallops. ABDOMINAL: Soft, nontender, nondistended, normal bowel sounds MUSCULOSKELETAL: Moves all extremities. Strength/ROM intact, No edema, No calf tenderness. NEURO: Alert. Cranial nerves II through XII intact. Good gait. Good coordination SKIN: Warm, dry. Normal Color Course Course Emergency Course: 82-year-old female with complaint of intermittent dizziness and intermittent chest pain. Patient's EKG showed normal sinus rhythm with no evidence of acute STEMI. Patient had negative serial troponins. Patient is afebrile with no leukocytosis. Patient's CMP is similar to her baseline. Patient's UA shows no evidence of underlying infection. Patient was negative for COVID RSV and influenza. Chest x-ray shows no acute cardiopulmonary malady. Patient's head CT s
[2022-10-28 18:04] LABS: Influenza A QL RT-PCR Negative (Negative); Influenza B QL RT-PCR Negative (Negative); RSV RNA, RT-PCR Negative (Negative); SARS-CoV-2 RNA PCR Negative (Negative)
[2022-10-28 18:13] LABS: Appearance Urine Clear (Clear); Bacteria Urine None Seen /hpf; Bilirubin Urine Negative (Negative); Blood Urine Negative (Negative); Color Urine Yellow (Yellow); Glucose Urine UA Negative (Negative); Ketones Urine Negative (Negative); Leukocyte Esterase Ur Trace LEU/UL (Negative); Nitrate Urine Negative (Negative); Non Pathogenic Casts 0-2; Protein Urine Negative (Negative); RBC Urine 0-2 /hpf (0-2); Specific Grav Ur 1.008 (1.001-1.035); Squamous Epithelial Cell Urine None seen /hpf (Few); Urobilinogen Urine 0.2 mg/dL (<2.0); WBC Urine 0-5 /hpf
[2022-10-28 18:18] LABS: Add Urine Microscopic? YES
[2022-10-28] MEDS: hydrALAZINE HCL 20 MG/ML VIAL 10 MG IV PUSH (18:34)
--- NOTE | 2022-10-28 18:45 | PC.NURSE ---
called to room by pt's daughter. pt c/o cp that radiates to toes and dizziness and double vision. pt states symptoms started after hydralazine was given. pt refuses to open eyes but answers questions appropriately. states that she is very dizzy. Dr. Hoff aware.
[2022-10-28 19:04] LABS: Troponin I < 0.012 ng/mL (0.000-0.034)
--- NOTE | 2022-10-28 19:30 | PC.NURSE ---
pt states her cp is better but continues to have dizziness. pt still refuses to open eyes but answers questions appropriately. moves all extremities without difficulty and follows commands. Dr. Luis Eduardo mata.
[2022-10-28] MEDS: MECLIZINE HCL 25 MG TABLET PO (19:52)
[2022-10-28 19:54] LABS: Troponin I < 0.012 ng/mL (0.000-0.034)
--- NOTE | 2022-10-28 20:09 | PM.IMHP ---
H&P: HPI History of Present Illness Date/Time: 10/28/22 20:09 Chief Complaint: Altered mental status Narrative: This is an 82-year-old female with past medical history significant for left breast CA, patient is on hormonal therapy, type 2 diabetes mellitus, hypertension, chronic kidney disease, obstructive sleep apnea. Patient was brought to the emergency room for evaluation due to altered mental status, confusion, obtundation, dizziness, after being on a course of doxycycline for presumptive pneumonia in the outpatient setting. Patient usually lives on her own and is independent has not been taking her usual medications he was noted. Patient is able to give some history but is somehow limited denies any discomfort at this time, no nausea, no vomiting, has some retrosternal chest pain and epigastric pain, denies any fevers, rigors, chills. Preliminary workup was significant CT of the head was reported as: COMPARISON: 01/20/2022. FINDINGS: No acute intracranial hemorrhage or extra-axial fluid collection. No hydrocephalus, mass, or herniation. No acute ischemic infarct. Unremarkable dural venous sinus attenuation. No acute osseous abnormality. Aerated secretions in the inferior frontal ethmoid and bilateral maxillary sinuses, the remaining aerated spaces are clear. Mild atrophy and chronic white matter change. Atherosclerotic intracranial calcification. Bilateral lens replacements. IMPRESSION:? No acute intracranial process.. Paranasal sinus findings may represent acute sinusitis in the appropriate clinical context. A chest x-ray was reported as: EXAMINATION:? XR chest 1V portable Exam Date/Time:? 10/28/2022 17:15 CDT HISTORY: pneumonia, CONFUSION, HTN, HX OF BRONCHITIS ? Comparison:? None available. RESULT: Lines, tubes, and devices:? None. Lungs and pleura:? Streaky bibasilar scar/atelectasis. Cardiomediastinal silhouette:? Stable. Other:? No acute osseous or upper abdominal finding. ? IMPRESSION: No acute cardiopulmonary process. Review of Systems Review of Systems: ROS unobtainable: Yes unobtainable due to mental status (Obtundation) [facility] Past Medical History Medical History Breast cancer, left Chest pain Diabetes Obesity Sleep apnea Surgical History Surgical History S/P lumpectomy, left breast Needle localized Left Breast lumpectomy w/ SN[facility] on 04/03/22. Family History Family History Sibling Hypertension Family history of diabetes mellitus in first degree relative Family history of coronary artery disease Mother Family history of diabetes mellitus in first degree relative Family history of coronary artery disease Father Family history of coronary artery disease Social History Social History Smoking status: Never smoker Second hand tobacco smoke exposure: No Alcohol intake: never Substance use: never Substance use type: does not use Living arrangements: alone Occupation/Education: retired Gender identity (if verbalized by the patient): Female Sexual Orientation (if Verbalized by the Patient): Straight or Heterosexual Spiritual care concerns: No Meds Home Medications and Allergies Home Medications Medication Instructions Recorded Confirmed Type aspirin 81 mg tablet,delayed 81 mg PO DAILY 06/08/19 10/22/22 History release wecjkrx-ztpxjvool-inci tablet 1 tablet PO DAILY 03/10/20 10/22/22 History ginkgo biloba 120 mg tablet 120 mg PO DAILY 03/10/20 10/22/22 History antiarthritic combination no.2 900 2,900 mg PO DAILY 03/21/21 10/22/22 History mg tablet (glucosamine-chondroitin) blood sugar diagnostic (Contour #100 ea 07/25/21 10/22/22 Rx Next Test Strips) lancets (Microlet Lancet) #100 ea 11/29/21 10/22/22 Rx metformin 500 mg tablet S
[2022-10-28] MEDS: PANTOPRAZOLE SODIUM IV 40 MG VIAL IV PUSH (21:32)
[2022-10-28] MEDS: ONDANSETRON INJ 4 MG/2 ML VIAL IV PUSH (21:33)
[2022-10-28] MEDS: SODIUM CHLORIDE 0.9% IV 1,000 ML 75 ML IV CONT (22:38)
[2022-10-29] VITALS (18 sets, daily range): BP systolic 140–178; BP diastolic 61–93; PULSE 71–103; RESP 16–18; TEMP 36.2–36.8; O2SAT 93–98
[2022-10-29] MEDS: ONDANSETRON INJ 4 MG/2 ML VIAL IV PUSH ×5 (01:21→17:40)
[2022-10-29] MEDS: ACETAMINOPHEN 500 MG TABLET 1000 MG PO (01:21)
[2022-10-29] MEDS: hydrALAZINE HCL 20 MG/ML VIAL 10 MG IV PUSH (02:01)
--- NOTE | 2022-10-29 06:49 | PC.NURSE ---
consent sign for MRI per daughter Maryannia. called MRI and informed consent signed
[2022-10-29 07:22] LABS: Glucose Point of Care 192 mg/dl (65-105)
--- NOTE | 2022-10-29 08:11 | P.PNIM_ITS ---
Progress Note: A&P Assessment and Plan (1) AMS (altered mental status): Code(s): R41.82 - Altered mental status, unspecified Status: Acute Assessment and Plan: Unclear etiology. May be medication induced. Patient was started on doxycycline and tessalon perles for possible pneumonia. * CT head negative for acute disease. * Brain MRI negative for acute stroke or lesion. * Chest x-ray negative for acute disease. * Monitor neuro status. Neuro exam benign. * Hold tessalon perles and doxycycline. No evidence of pneumonia and will hold antibiotics at this time. * TSH, B12 and folic acid within normal limits. (2) AIDEN (obstructive sleep apnea): Code(s): G47.33 - Obstructive sleep apnea (adult) (pediatric) Status: Chronic Assessment and Plan: CPAP at nighttime (3) Diabetic neuropathy: Code(s): E11.40 - Type 2 diabetes mellitus with diabetic neuropathy, unspecified Status: Chronic Assessment and Plan: Holding gabapentin due to AMS and lethargy. (4) Type 2 diabetes mellitus with diabetic chronic kidney disease: Code(s): E11.22 - Type 2 diabetes mellitus with diabetic chronic kidney disease Status: Chronic Assessment and Plan: Chronic, * Continue metformin * Insulin sliding scale at low dose. * Accu-checks AC/HS * Hypoglycemia protocol. * A1c 6% on 10/17/22 (5) CKD (chronic kidney disease) stage 3, GFR 30-59 ml/min: Code(s): N18.3 - Chronic kidney disease, stage 3 (moderate) Status: Chronic Assessment and Plan: BUN and creatinine at patient's baseline. Saline lock IV fluids when taking good PO. (6) Dyslipidemia: Code(s): E78.5 - Hyperlipidemia, unspecified Status: Chronic Assessment and Plan: check lipid panel. Continus simvastatin. 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 Radiation therapy completed 06/16/2022. * Continue anastrozole at current dose. * Patient was started on Vitamin D supplements by her Oncologist. Vitamin D level noted to be elevated >126 that may increase her risk for falling. Patient states she has been taking multiple tablets per day at different times and it is unclear how much she is taking. Oncology notes indicate she was pre scribed 500 mg daily. Calcium 10.8. (8) Vertigo: Code(s): R42 - Dizziness and giddiness Status: Acute Assessment and Plan: Dizziness exacerbated by head turning and position changes. Some nystagmus noted on exam. Likely secondary to BPPV. Abundant cerumen noted bilaterally that may be affecting equilibrium as well. * PT/OT evaluation and add vestibular testing and therapy. * Meclizine 12.5 mg TID * Fall precautions. * Orthostatic vitals negative. * Fluticasone nasal spray and saline nasal spray PRN for sinus congestion. * MRI negative for cerebellar stroke. * Debrox 10 drops each ear BID (9) HTN (hypertension): Code(s): I10 - Essential (primary) hypertension Status: Chronic Assessment and Plan: BP 140/61 to 178/82, HR 73. * Continue metoprolol tartrate 50 mg PO BID. * Start Losartan 50 mg PO daily given concurrent diabetes with CKD. * PRN hydralazine for SBP>185. * Echocardiogram pending. Plan CODE STATUS: FULL CODE Disposition: p
--- NOTE | 2022-10-29 08:11 | PM.IMPN ---
Progress Note: A&P Assessment and Plan (1) AMS (altered mental status): Code(s): R41.82 - Altered mental status, unspecified Status: Acute Assessment and Plan: Unclear etiology. May be medication induced. Patient was started on doxycycline and tessalon perles for possible pneumonia. CT head negative for acute disease. Brain MRI negative for acute stroke or lesion. Chest x-ray negative for acute disease. Monitor neuro status. Neuro exam benign. Hold tessalon perles and doxycycline. No evidence of pneumonia and will hold antibiotics at this time. TSH, B12 and folic acid within normal limits. (2) AIDEN (obstructive sleep apnea): Code(s): G47.33 - Obstructive sleep apnea (adult) (pediatric) Status: Chronic Assessment and Plan: CPAP at nighttime (3) Diabetic neuropathy: Code(s): E11.40 - Type 2 diabetes mellitus with diabetic neuropathy, unspecified Status: Chronic Assessment and Plan: Holding gabapentin due to AMS and lethargy. (4) Type 2 diabetes mellitus with diabetic chronic kidney disease: Code(s): E11.22 - Type 2 diabetes mellitus with diabetic chronic kidney disease Status: Chronic Assessment and Plan: Chronic, Continue metformin Insulin sliding scale at low dose. Accu-checks AC/HS Hypoglycemia protocol. A1c 6% on 10/17/22 (5) CKD (chronic kidney disease) stage 3, GFR 30-59 ml/min: Code(s): N18.3 - Chronic kidney disease, stage 3 (moderate) Status: Chronic Assessment and Plan: BUN and creatinine at patient's baseline. Saline lock IV fluids when taking good PO. (6) Dyslipidemia: Code(s): E78.5 - Hyperlipidemia, unspecified Status: Chronic Assessment and Plan: check lipid panel. Continus simvastatin. 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 Radiation therapy completed 06/16/2022. Continue anastrozole at current dose. Patient was started on Vitamin D supplements by her Oncologist. Vitamin D level noted to be elevated >126 that may increase her risk for falling. Patient states she has been taking multiple tablets per day at different times and it is unclear how much she is taking. Oncology notes indicate she was prescribed 500 mg daily. Calcium 10.8. (8) Vertigo: Code(s): R42 - Dizziness and giddiness Status: Acute Assessment and Plan: Dizziness exacerbated by head turning and position changes. Some nystagmus noted on exam. Likely secondary to BPPV. Abundant cerumen noted bilaterally that may be affecting equilibrium as well. PT/OT evaluation and add vestibular testing and therapy. Meclizine 12.5 mg TID Fall precautions. Orthostatic vitals negative. Fluticasone nasal spray and saline nasal spray PRN for sinus congestion. MRI negative for cerebellar stroke. Debrox 10 drops each ear BID (9) HTN (hypertension): Code(s): I10 - Essential (primary) hypertension Status: Chronic Assessment and Plan: BP 140/61 to 178/82, HR 73. Continue metoprolol tartrate 50 mg PO BID. Start Losartan 50 mg PO daily given concurrent diabetes with CKD. PRN hydralazine for SBP>185. Echocardiogram pending. Plan CODE STATUS: FULL CODE Disposition: patient lives home alone. PT/OT recommendations pending. Time Spent With Patient Time with patient: Greater than 35 minutes Subjective Date/time seen: 10/29/22 08:11 She had dizziness getting to the bed after having MRI this morning. She received 25 mg PO meclizine and dizziness was somewhat improved. She feels a little foggy now. She denies chest pain, SOB, cough, sputum, abd pain, N/V/D, anorexia, or urinary changes. She has been having incr
[2022-10-29] MEDS: MECLIZINE HCL 25 MG TABLET PO (09:08)
[2022-10-29] MEDS: ENOXAPARIN 40 MG/0.4 ML SYRINGE SUB-Q (09:41)
[2022-10-29] MEDS: METOPROLOL TARTRATE 50 MG TAB BY MOUTH ×2 (09:41→20:21)
[2022-10-29] MEDS: SIMVASTATIN 20 MG TABLET PO (09:41)
[2022-10-29] MEDS: ASPIRIN 81 MG ENTERIC TABLET PO (09:41)
[2022-10-29 10:06] LABS: Folic Acid > 20.0 ng/mL (2.76->20)
[2022-10-29 11:22] LABS: Vitamin D 25 Hydroxy > 126.0 ng/mL
[2022-10-29 11:42] LABS: Glucose Point of Care 176 mg/dl (65-105)
[2022-10-29] MEDS: ANASTROZOLE (*CHEMO) 1 MG TABLET PO (12:10)
[2022-10-29] MEDS: MECLIZINE HCL 12.5 MG TABLET PO ×2 (12:58→17:40)
[2022-10-29] MEDS: CARBAMIDE PEROXIDE 6.5% OT SOLN 15 ML BTL 10 DROP EACH EAR ×2 (12:58→17:39)
[2022-10-29 16:40] LABS: Glucose Point of Care 140 mg/dl (65-105)
[2022-10-29] MEDS: LOSARTAN POTASSIUM 50 MG TABLET PO (17:39)
[2022-10-29] MEDS: SODIUM CHLORIDE 0.9% IV 1,000 ML 75 ML IV CONT (17:42)
[2022-10-29] MEDS: FLUTICASONE PROPIONATE 0.05% NA SPR 16 GM BTL (*BKC) 1 SPRAY NASAL (20:21)
[2022-10-29 21:10] LABS: Glucose Point of Care 131 mg/dl (65-105)
[2022-10-30] VITALS (12 sets, daily range): BP systolic 122–153; BP diastolic 58–70; PULSE 57–80; RESP 20; TEMP 35.8–36.1; O2SAT 92–97
[2022-10-30 06:38] LABS: Hematocrit 39.6 % (37.0-47.0); Hemoglobin 13.1 g/dL (12.0-15.0); Mean Corpuscular HGB Conc 33.1 g/dl (32-36); Mean Corpuscular Hemoglobin 29.8 pg (26-34); Mean Corpuscular Volume 90.2 fl (80-100); Mean Platelet Volume 11.1 fl (7.4-10.4); Platelet Count Result 314 k/mm3 (150-375); Red Blood Count 4.39 M/mm3 (4.2-5.4); Red Cell Distribution Width 13.2 % (11.5-14.5); White Blood Count 11.4 K/mm3 (4.5-10.0)
[2022-10-30 06:49] LABS: Alanine Aminotransferase 24 U/L (6-35); Albumin Level 3.6 g/dL (3.5-5.1); Alkaline Phosphatase 24 U/L (38-126); Anion Gap 4 mmol/L (8-16); Aspartate Amino Transferase 32 U/L (14-36); Bilirubin,Total 0.7 mg/dL (0.2-1.3); Blood Urea Nitrogen 21 mg/dL (7-17); Calcium 10.3 mg/dL (8.4-10.2); Carbon Dioxide 28 mmol/L (22-30); Chloride 108 mmol/L (98-107); Cholesterol 124 mg/dL (0-200); Estimated CRCL calculation 35 ml/min; Estimated Glomerular Filt Rate 53; Glucose 100 mg/dL (65-110); HDL Direct 31 mg/dL; Potassium 3.6 mmol/L (3.4-5.0); Sodium 140 mmol/L (137-145); Triglycerides 157 mg/dL (<150)
[2022-10-30 07:00] LABS: LDL Cholesterol Direct 68 mg/dL
[2022-10-30 07:48] LABS: Glucose Point of Care 93 mg/dl (65-105)
[2022-10-30] MEDS: ASPIRIN 81 MG ENTERIC TABLET PO (08:36)
[2022-10-30] MEDS: MECLIZINE HCL 12.5 MG TABLET PO (08:36)
[2022-10-30] MEDS: METOPROLOL TARTRATE 50 MG TAB BY MOUTH ×2 (08:36→20:03)
[2022-10-30] MEDS: SIMVASTATIN 20 MG TABLET PO (08:36)
[2022-10-30] MEDS: ANASTROZOLE (*CHEMO) 1 MG TABLET PO (08:36)
[2022-10-30] MEDS: ENOXAPARIN 40 MG/0.4 ML SYRINGE SUB-Q (08:36)
[2022-10-30] MEDS: metFORMIN HCL 500 MG TABLET BY MOUTH (08:37)
[2022-10-30] MEDS: CARBAMIDE PEROXIDE 6.5% OT SOLN 15 ML BTL 10 DROP EACH EAR ×2 (08:37→18:38)
[2022-10-30] MEDS: LOSARTAN POTASSIUM 50 MG TABLET PO (08:37)
[2022-10-30] MEDS: FLUTICASONE PROPIONATE 0.05% NA SPR 16 GM BTL (*BKC) 1 SPRAY NASAL ×2 (08:38→20:04)
[2022-10-30] MEDS: ONDANSETRON INJ 4 MG/2 ML VIAL IV PUSH (08:48)
[2022-10-30] MEDS: SODIUM CHLORIDE 0.9% IV 1,000 ML 75 ML IV CONT (08:48)
[2022-10-30 11:21] LABS: Glucose Point of Care 105 mg/dl (65-105)
--- NOTE | 2022-10-30 13:37 | PM.IMPN ---
Progress Note: A&P Assessment and Plan (1) Vertigo: Code(s): R42 - Dizziness and giddiness Status: Acute Assessment and Plan: Dizziness exacerbated by head turning and position changes. Some nystagmus noted on exam. Likely secondary to BPPV. Abundant cerumen noted bilaterally that may be affecting equilibrium as well. PT/OT evaluation and add vestibular testing and therapy. Meclizine 12.5 mg TID initially, 10/30 increase meclizine to 25 mg t.i.d. Fall precautions. Orthostatic vitals negative. Fluticasone nasal spray and saline nasal spray PRN for sinus congestion. MRI negative for cerebellar stroke. Debrox 10 drops each ear BID (2) AMS (altered mental status): Code(s): R41.82 - Altered mental status, unspecified Status: Acute Assessment and Plan: Unclear etiology. May be medication induced. Patient was started on doxycycline and tessalon perles for possible pneumonia. CT head negative for acute disease. Brain MRI negative for acute stroke or lesion. Chest x-ray negative for acute disease. Monitor neuro status. Neuro exam benign. Hold tessalon perles and doxycycline. No evidence of pneumonia and will hold antibiotics at this time. TSH, B12 and folic acid within normal limits. Vitamin D 25 [place] level greater than 126, altered mental status and falls may be contributed to toxicity vitamin-D. Hold medication at this time. The patient does states she is taking jjcm-rnh-cfmlxep vitamin-D (unknown IU/mcg) but is taking 4 capsules in the morning, 2 capsules in the afternoon and 4 capsules in the evening. (3) AIDEN (obstructive sleep apnea): Code(s): G47.33 - Obstructive sleep apnea (adult) (pediatric) Status: Chronic Assessment and Plan: CPAP at nighttime (4) Diabetic neuropathy: Code(s): E11.40 - Type 2 diabetes mellitus with diabetic neuropathy, unspecified Status: Chronic Assessment and Plan: Held gabapentin on admission due to AMS and lethargy. Patient now at baseline and will resume gabapentin at a lower dose. (5) Type 2 diabetes mellitus with diabetic chronic kidney disease: Code(s): E11.22 - Type 2 diabetes mellitus with diabetic chronic kidney disease Status: Chronic Assessment and Plan: Chronic, Continue metformin Insulin sliding scale at low dose. Accu-checks AC/HS Hypoglycemia protocol. A1c 6% on 10/17/22 (6) CKD (chronic kidney disease) stage 3, GFR 30-59 ml/min: Code(s): N18.3 - Chronic kidney disease, stage 3 (moderate) Status: Chronic Assessment and Plan: BUN and creatinine at patient's baseline. Renal function within normal limits. Patient did have episode of emesis today 10/30 and will monitor oral intake and saline lock fluids but able to take good p.o. (7) Dyslipidemia: Code(s): E78.5 - Hyperlipidemia, unspecified Status: Chronic Assessment and Plan: Triglycerides 151, LDL 68, HDL 31. Continue simvastatin at current dose. 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 Radiation therapy completed 06/16/2022. Continue anastrozole at current dose. Patient was started on Vitamin D supplements by her Oncologist office and notes indicate 500 mg daily was prescribed. His typical dosing is in IU/mcg, wondering if this is accurate. Vitamin D level significantly elevated >126 that may increase her risk for falling, toxicity, and may be contributing to altered mental status. Holding vitamin-D currently. Calcium 10.8-10.3. (9) HTN (hypertension): Code(s): I10 - Essential (primary) hypertension Status: Chronic Assessment and Plan: BP 140/61 to 178/82, HR 73. Continue metoprolol tartrate 50 mg
[2022-10-30 16:55] LABS: Glucose Point of Care 89 mg/dl (65-105)
[2022-10-30] MEDS: GABAPENTIN 300 MG CAPSULE BY MOUTH (18:38)
[2022-10-30] MEDS: MECLIZINE HCL 25 MG TABLET PO (18:38)
[2022-10-30 19:41] LABS: Glucose Point of Care 118 mg/dl (65-105)
[2022-10-31] VITALS (11 sets, daily range): BP systolic 134–220; BP diastolic 55–110; PULSE 58–77; RESP 17–18; TEMP 36.1–36.4; O2SAT 92–95
[2022-10-31] MEDS: SODIUM CHLORIDE 0.9% IV 1,000 ML 75 ML IV CONT (02:57)
[2022-10-31 06:08] LABS: Basophils Absolute Auto 0.1 K/mm3 (0.0-0.1); Basophils Percent Auto 0.9 % (0.2-1.2); Eosinophils Absolute Auto 0.2 K/mm3 (0-0.3); Eosinophils Percent Auto 2.7 % (0-4.4); Hematocrit 39.6 % (37.0-47.0); Hemoglobin 12.9 g/dL (12.0-15.0); Immature Granulocyte Absolute 0.02 K/mm3 (0.00-0.031); Immature Granulocyte Percent A 0.2 % (0-0.5); Lymphocytes Absolute Auto 3.79 K/mm3 (0.9-3.2); Lymphocytes Percent Auto 43.8 % (18.3-44.2); Mean Corpuscular HGB Conc 32.6 g/dl (32-36); Mean Corpuscular Hemoglobin 29.6 pg (26-34); Mean Corpuscular Volume 90.8 fl (80-100); Mean Platelet Volume 11.2 fl (7.4-10.4); Monocytes Absolute Auto 0.7 K/mm3 (0.1-0.6); Monocytes Percent Auto 8.1 % (2.6-8.5); Neutrophils Absolute Auto 3.8 K/mm3 (1.3-6.7); Neutrophils Percent Auto 44.3 % (45.5-73.1); Platelet Count Result 280 k/mm3 (150-375); Red Blood Count 4.36 M/mm3 (4.2-5.4); Red Cell Distribution Width 13.2 % (11.5-14.5); White Blood Count 8.7 K/mm3 (4.5-10.0)
[2022-10-31 06:16] LABS: Anion Gap -1 mmol/L (8-16); Blood Urea Nitrogen 21 mg/dL (7-17); Calcium 10.2 mg/dL (8.4-10.2); Carbon Dioxide 32 mmol/L (22-30); Chloride 109 mmol/L (98-107); Estimated CRCL calculation 35 ml/min; Estimated Glomerular Filt Rate 53; Glucose 91 mg/dL (65-110); Potassium 3.9 mmol/L (3.4-5.0); Sodium 140 mmol/L (137-145)
[2022-10-31 07:51] LABS: Glucose Point of Care 85 mg/dl (65-105)
[2022-10-31] MEDS: SIMVASTATIN 20 MG TABLET PO (09:22)
[2022-10-31] MEDS: LOSARTAN POTASSIUM 50 MG TABLET PO (09:22)
[2022-10-31] MEDS: MECLIZINE HCL 25 MG TABLET PO ×2 (09:22→17:05)
[2022-10-31] MEDS: metFORMIN HCL 500 MG TABLET BY MOUTH (09:23)
[2022-10-31] MEDS: METOPROLOL TARTRATE 50 MG TAB BY MOUTH ×2 (09:23→21:17)
[2022-10-31] MEDS: ASPIRIN 81 MG ENTERIC TABLET PO (09:23)
[2022-10-31] MEDS: GABAPENTIN 300 MG CAPSULE BY MOUTH ×2 (09:25→17:05)
[2022-10-31] MEDS: ANASTROZOLE (*CHEMO) 1 MG TABLET PO (09:25)
[2022-10-31] MEDS: ENOXAPARIN 40 MG/0.4 ML SYRINGE SUB-Q (09:25)
[2022-10-31] MEDS: FLUTICASONE PROPIONATE 0.05% NA SPR 16 GM BTL (*BKC) 1 SPRAY NASAL ×2 (09:27→21:17)
[2022-10-31] MEDS: ONDANSETRON INJ 4 MG/2 ML VIAL IV PUSH (11:00)
[2022-10-31] MEDS: CARBAMIDE PEROXIDE 6.5% OT SOLN 15 ML BTL 10 DROP EACH EAR (11:01)
[2022-10-31 11:25] LABS: EDCOVIDSCREEN Negative (Negative)
[2022-10-31 12:24] LABS: Glucose Point of Care 162 mg/dl (65-105)
--- NOTE | 2022-10-31 13:45 | PM.DS ---
DS: Admitting Diagnosis Discharge Date 10/31/22 Admitting Diagnosis Dizziness, altered mental status DS: Discharge Diagnosis Discharge Diagnosis (1) Vertigo: Code(s): R42 - Dizziness and giddiness Status: Acute Assessment and Plan: Dizziness exacerbated by head turning and position changes. Some nystagmus noted on exam. Likely secondary to BPPV. Abundant cerumen noted bilaterally that may be affecting equilibrium as well. PT/OT evaluation and add vestibular testing and therapy. Meclizine 12.5 mg TID initially, 10/30 increase meclizine to 25 mg t.i.d. Fall precautions. Orthostatic vitals negative. Fluticasone nasal spray and saline nasal spray PRN for sinus congestion. MRI negative for cerebellar stroke. Debrox 10 drops each ear BID (2) AMS (altered mental status): Code(s): R41.82 - Altered mental status, unspecified Status: Acute Assessment and Plan: Unclear etiology. May be medication induced. Patient was started on doxycycline and tessalon perles for possible pneumonia. CT head negative for acute disease. Brain MRI negative for acute stroke or lesion. Chest x-ray negative for acute disease. Monitor neuro status. Neuro exam benign. Hold tessalon perles and doxycycline. No evidence of pneumonia and will hold antibiotics at this time. TSH, B12 and folic acid within normal limits. Vitamin D 25 [place] level greater than 126, altered mental status and falls may be contributed to toxicity vitamin-D. Hold medication at this time. The patient does states she is taking ivly-bcz-vjovldl vitamin-D (unknown IU/mcg) but is taking 4 capsules in the morning, 2 capsules in the afternoon and 4 capsules in the evening. (3) AIDEN (obstructive sleep apnea): Code(s): G47.33 - Obstructive sleep apnea (adult) (pediatric) Status: Chronic Assessment and Plan: CPAP at nighttime (4) Diabetic neuropathy: Code(s): E11.40 - Type 2 diabetes mellitus with diabetic neuropathy, unspecified Status: Chronic Assessment and Plan: Held gabapentin on admission due to AMS and lethargy. Patient now at baseline and will resume gabapentin at a lower dose. (5) Type 2 diabetes mellitus with diabetic chronic kidney disease: Code(s): E11.22 - Type 2 diabetes mellitus with diabetic chronic kidney disease Status: Chronic Assessment and Plan: Chronic, Continue metformin Insulin sliding scale at low dose. Accu-checks AC/HS Hypoglycemia protocol. A1c 6% on 10/17/22 (6) CKD (chronic kidney disease) stage 3, GFR 30-59 ml/min: Code(s): N18.3 - Chronic kidney disease, stage 3 (moderate) Status: Chronic Assessment and Plan: BUN and creatinine at patient's baseline. Renal function within normal limits. Patient did have episode of emesis today 10/30 and will monitor oral intake and saline lock fluids but able to take good p.o. (7) Dyslipidemia: Code(s): E78.5 - Hyperlipidemia, unspecified Status: Chronic Assessment and Plan: Triglycerides 151, LDL 68, HDL 31. Continue simvastatin at current dose. 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 Radiation therapy completed 06/16/2022. Continue anastrozole at current dose. Patient was started on Vitamin D supplements by her Oncologist office and notes indicate 500 mg daily was prescribed. His typical dosing is in IU/mcg, wondering if this is accurate. Vitamin D level significantly elevated >126 that may increase her risk for falling, toxicity, and may be contributing to altered mental status. Holding vitamin-D currently. Calcium 10.8-10.3. (9) HTN (hypertension): Code(s): I10 - Essential (primary) hypertension
[2022-10-31] MEDS: ACETAMINOPHEN 325 MG TABLET 650 MG PO ×2 (16:41→21:16)
[2022-10-31 17:00] LABS: Glucose Point of Care 142 mg/dl (65-105)
--- NOTE | 2022-10-31 18:13 | PC.NURSE ---
Dr Hernandez notified of bp 220/110. Discharge cancelled. Will give prn hydralazine
[2022-10-31] MEDS: hydrALAZINE HCL 20 MG/ML VIAL 10 MG IV PUSH (18:35)
[2022-10-31 21:14] LABS: Glucose Point of Care 119 mg/dl (65-105)
[2022-11-01] VITALS (10 sets, daily range): BP systolic 122–160; BP diastolic 51–70; PULSE 61–80; RESP 14–18; TEMP 35.7–36.7; O2SAT 94–96
[2022-11-01 07:55] LABS: Glucose Point of Care 94 mg/dl (65-105)
[2022-11-01] MEDS: METOPROLOL TARTRATE 50 MG TAB BY MOUTH ×2 (08:45→21:02)
[2022-11-01] MEDS: ASPIRIN 81 MG ENTERIC TABLET PO (08:45)
[2022-11-01] MEDS: SIMVASTATIN 20 MG TABLET PO (08:46)
[2022-11-01] MEDS: FENOFIBRATE NANOCRYSTALLIZED 145 MG TABLET BY MOUTH (08:46)
[2022-11-01] MEDS: metFORMIN HCL 500 MG TABLET BY MOUTH (08:46)
[2022-11-01] MEDS: GABAPENTIN 300 MG CAPSULE BY MOUTH ×2 (08:46→17:01)
[2022-11-01] MEDS: ANASTROZOLE (*CHEMO) 1 MG TABLET PO (08:47)
[2022-11-01] MEDS: ENOXAPARIN 40 MG/0.4 ML SYRINGE SUB-Q (08:48)
[2022-11-01] MEDS: LOSARTAN POTASSIUM 100 MG TABLET PO (08:48)
[2022-11-01] MEDS: FLUTICASONE PROPIONATE 0.05% NA SPR 16 GM BTL (*BKC) 1 SPRAY NASAL ×2 (08:48→21:01)
[2022-11-01] MEDS: CARBAMIDE PEROXIDE 6.5% OT SOLN 15 ML BTL 10 DROP EACH EAR (08:49)
[2022-11-01] MEDS: MECLIZINE HCL 25 MG TABLET PO ×3 (08:50→17:01)
[2022-11-01 11:56] LABS: Glucose Point of Care 116 mg/dl (65-105)
--- NOTE | 2022-11-01 15:11 | PM.IMPN ---
Progress Note: A&P Assessment and Plan (1) Vertigo: Code(s): R42 - Dizziness and giddiness Status: Acute Assessment and Plan: Dizziness exacerbated by head turning and position changes. Some nystagmus noted on exam. Likely secondary to BPPV. Abundant cerumen noted bilaterally that may be affecting equilibrium as well. PT/OT evaluation and add vestibular testing and therapy. Meclizine 12.5 mg TID initially, 10/30 increase meclizine to 25 mg t.i.d. Fall precautions. Orthostatic vitals negative. Fluticasone nasal spray and saline nasal spray PRN for sinus congestion. MRI negative for cerebellar stroke. Debrox 10 drops each ear BID TM clear and light reflex present after ear wash clean out. (2) AMS (altered mental status): Code(s): R41.82 - Altered mental status, unspecified Status: Resolved Assessment and Plan: Unclear etiology. May be medication induced. Patient was started on doxycycline and tessalon perles for possible pneumonia. CT head negative for acute disease. Brain MRI negative for acute stroke or lesion. Chest x-ray negative for acute disease. Monitor neuro status. Neuro exam benign. Hold tessalon perles and doxycycline. No evidence of pneumonia and will hold antibiotics at this time. TSH, B12 and folic acid within normal limits. Vitamin D 25 OH level greater than 126, altered mental status and falls may be contributed to toxicity vitamin-D. Hold medication at this time. The patient does states she is taking jpha-vyx-jodlxxl vitamin-D (unknown IU/mcg) but is taking 4 capsules in the morning, 2 capsules in the afternoon and 4 capsules in the evening. (3) AIDEN (obstructive sleep apnea): Code(s): G47.33 - Obstructive sleep apnea (adult) (pediatric) Status: Chronic Assessment and Plan: CPAP at nighttime (4) Diabetic neuropathy: Code(s): E11.40 - Type 2 diabetes mellitus with diabetic neuropathy, unspecified Status: Chronic Assessment and Plan: Held gabapentin on admission due to AMS and lethargy. Patient now at baseline and will resume gabapentin at a lower dose. (5) Type 2 diabetes mellitus with diabetic chronic kidney disease: Code(s): E11.22 - Type 2 diabetes mellitus with diabetic chronic kidney disease Status: Chronic Assessment and Plan: Chronic Continue metformin Insulin sliding scale at low dose. Accu-checks AC/HS Hypoglycemia protocol. A1c 6% on 10/17/22 (6) CKD (chronic kidney disease) stage 3, GFR 30-59 ml/min: Code(s): N18.3 - Chronic kidney disease, stage 3 (moderate) Status: Chronic Assessment and Plan: BUN and creatinine at patient's baseline. Renal function within normal limits. Patient did have episode of emesis today 10/30 and will monitor oral intake and saline lock fluids but able to take good p.o. (7) Dyslipidemia: Code(s): E78.5 - Hyperlipidemia, unspecified Status: Chronic Assessment and Plan: Triglycerides 151, LDL 68, HDL 31. Continue simvastatin at current dose. 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 Radiation therapy completed 06/16/2022. Continue anastrozole at current dose. Patient was started on Vitamin D supplements by her Oncologist office and notes indicate 500 mg daily was prescribed. His typical dosing is in IU/mcg, wondering if this is accurate. Vitamin D level significantly elevated >126 that may increase her risk for falling, toxicity, and may be contributing to altered mental status. Holding vitamin-D currently. Calcium 10.8-10.3. 11/01 Patient's daughter had brought in her home medications and it was
[2022-11-01 16:43] LABS: Glucose Point of Care 105 mg/dl (65-105)
[2022-11-01] MEDS: ACETAMINOPHEN 325 MG TABLET 650 MG PO ×2 (17:01→21:02)
[2022-11-01] MEDS: ONDANSETRON INJ 4 MG/2 ML VIAL IV PUSH (17:08)
[2022-11-01] MEDS: AMOXICILLIN/CLAVULANATE K 875-125 MG TAB 1 TABLET PO (21:01)
[2022-11-01 21:29] LABS: Glucose Point of Care 159 mg/dl (65-105)
[2022-11-02 05:28] VITALS: BP 143/54; PULSE 57; RESP 14; TEMP 36.3; O2SAT 96
[2022-11-02 06:16] LABS: Hematocrit 38.3 % (37.0-47.0); Hemoglobin 12.4 g/dL (12.0-15.0); Mean Corpuscular HGB Conc 32.4 g/dl (32-36); Mean Corpuscular Hemoglobin 29.4 pg (26-34); Mean Corpuscular Volume 90.8 fl (80-100); Mean Platelet Volume 11.2 fl (7.4-10.4); Platelet Count Result 270 k/mm3 (150-375); Red Blood Count 4.22 M/mm3 (4.2-5.4); Red Cell Distribution Width 13.2 % (11.5-14.5); White Blood Count 7.9 K/mm3 (4.5-10.0)
[2022-11-02 06:26] LABS: Anion Gap 1 mmol/L (8-16); Blood Urea Nitrogen 23 mg/dL (7-17); Calcium 10.2 mg/dL (8.4-10.2); Carbon Dioxide 33 mmol/L (22-30); Chloride 107 mmol/L (98-107); Estimated CRCL calculation 35 ml/min; Estimated Glomerular Filt Rate 53; Glucose 104 mg/dL (65-110); Potassium 3.9 mmol/L (3.4-5.0); Sodium 141 mmol/L (137-145)
[2022-11-02 07:41] LABS: Glucose Point of Care 105 mg/dl (65-105)
[2022-11-02 08:31] VITALS: PULSE 65
[2022-11-02] MEDS: METOPROLOL TARTRATE 50 MG TAB BY MOUTH (08:31)
[2022-11-02] MEDS: metFORMIN HCL 500 MG TABLET BY MOUTH (08:31)
[2022-11-02] MEDS: AMOXICILLIN/CLAVULANATE K 875-125 MG TAB 1 TABLET PO (08:32)
[2022-11-02] MEDS: CARBAMIDE PEROXIDE 6.5% OT SOLN 15 ML BTL 10 DROP EACH EAR (08:32)
[2022-11-02] MEDS: ANASTROZOLE (*CHEMO) 1 MG TABLET PO (08:32)
[2022-11-02] MEDS: SIMVASTATIN 20 MG TABLET PO (08:32)
[2022-11-02] MEDS: ENOXAPARIN 40 MG/0.4 ML SYRINGE SUB-Q (08:32)
[2022-11-02] MEDS: ASPIRIN 81 MG ENTERIC TABLET PO (08:32)
[2022-11-02] MEDS: FLUTICASONE PROPIONATE 0.05% NA SPR 16 GM BTL (*BKC) 1 SPRAY NASAL (08:33)
[2022-11-02] MEDS: LOSARTAN POTASSIUM 100 MG TABLET PO (08:33)
[2022-11-02] MEDS: GABAPENTIN 300 MG CAPSULE BY MOUTH (08:33)
[2022-11-02] MEDS: MECLIZINE HCL 25 MG TABLET PO ×2 (08:34→12:24)
[2022-11-02] MEDS: ACETAMINOPHEN 325 MG TABLET 650 MG PO ×2 (08:36→12:23)
[2022-11-02 11:31] LABS: Glucose Point of Care 108 mg/dl (65-105)
[2022-11-02 12:30] VITALS: BP 160/69
[2022-11-02 12:53] VITALS: BP 128/46; PULSE 67; O2SAT 100
--- NOTE | 2022-11-02 13:36 | P.DS_ITS ---
DS: Admitting Diagnosis Discharge Date 11/02/22 Admitting Diagnosis Dizziness, altered mental status DS: Discharge Diagnosis Discharge Diagnosis (1) Vertigo: Code(s): R42 - Dizziness and giddiness Status: Acute Assessment and Plan: Dizziness exacerbated by head turning and position changes. Some nystagmus noted on exam. Likely secondary to BPPV. Abundant cerumen noted bilaterally that may be affecting equilibrium as well. * PT/OT evaluation and add vestibular testing and therapy. * Meclizine 12.5 mg TID initially, 10/30 increase meclizine to 25 mg t.i.d. * Fall precautions. * Orthostatic vitals negative. * Fluticasone nasal spray and saline nasal spray PRN for sinus congestion. * MRI negative for cerebellar stroke. * Debrox 10 drops each ear BID (2) AMS (altered mental status): Code(s): R41.82 - Altered mental status, unspecified Status: Resolved Assessment and Plan: Unclear etiology. May be medication induced. Patient was started on doxycycline and tessalon perles for possible pneumonia. * CT head negative for acute disease. * Brain MRI negative for acute stroke or lesion. * Chest x-ray negative for acute disease. * Monitor neuro status. Neuro exam benign. * Hold tessalon perles and doxycycline. No evidence of pneumonia and will hold antibiotics at this time. * TSH, B12 and folic acid within normal limits. * Vitamin D 25 OH level greater than 126, altered mental status and falls may be contributed to toxicity vitamin-D. Hold medication at this time. The patient does states she is taking ojfo-rap-nvsmndz vitamin-D (unknown IU/mcg) but is taking 4 capsules in the morning, 2 capsules in the afternoon and 4 capsules in the evening. (3) AIDEN (obstructive sleep apnea): Code(s): G47.33 - Obstructive sleep apnea (adult) (pediatric) Status: Chronic Assessment and Plan: CPAP at nighttime (4) Diabetic neuropathy: Code(s): E11.40 - Type 2 diabetes mellitus with diabetic neuropathy, unspecified Status: Chronic Assessment and Plan: Held gabapentin on admission due to AMS and lethargy. Patient now at baseline and will resume gabapentin at a lower dose. (5) Type 2 diabetes mellitus with diabetic chronic kidney disease: Code(s): E11.22 - Type 2 diabetes mellitus with diabetic chronic kidney disease Status: Chronic Assessment and Plan: Chronic, * Continue metformin * Insulin sliding scale at low dose. * Accu-checks AC/HS * Hypoglycemia protocol. * A1c 6% on 10/17/22 (6) CKD (chronic kidney disease) stage 3, GFR 30-59 ml/min: Code(s): N18.3 - Chronic kidney disease, stage 3 (moderate) Status: Chronic Assessment and Plan: BUN and creatinine at patient's baseline. Renal function within normal limits. Patient did have episode of emesis today 10/30 and will monitor oral intake and saline lock fluids but able to take good p.o. (7) Dyslipidemia: Code(s): E78.5 - Hyperlipidemia, unspecified Status: Chronic Assessment and Plan: Triglycerides 151, LDL 68, HDL 31. Continue simvastatin at current dose. (8) Breast cancer, left: Code(s): C50.912 - Malignant neoplasm of unspecified site of left female breast Status: Chronic Assessment and Plan: Lumpectomy pathology from 03/2022 showed invasive ductal carcinoma and oncol
[2022-11-02 14:00] VITALS: BP 140/66; PULSE 71; RESP 14; TEMP 36; O2SAT 98
== END 2022-11-02 15:35 ==
LOC: ANHED 20:20 → ANH3MEDSUR 10-30 12:17
PROVIDERS: Internal Medicine Critical Care Medicine; Nurse Practitioner Family; Admitting Provider Internal Medicine; Emergency Provider Emergency Medicine; PCP Family Medicine; Visit Provider Internal Medicine
DX: R42 Dizziness and giddiness (principal); R41.82 Altered mental status, unspecified; G47.33 Obstructive sleep apnea (adult) (pediatric); E11.40 Type 2 diabetes mellitus with diabetic neuropathy, unspecified; I12.9 Hypertensive chronic kidney disease with stage 1 through stage 4 chronic kidney disease, or unspecified chronic kidney disease; E11.22 Type 2 diabetes mellitus with diabetic chronic kidney disease; N18.30 Chronic kidney disease, stage 3 unspecified; E78.5 Hyperlipidemia, unspecified; C50.912 Malignant neoplasm of unspecified site of left female breast; Z20.822 Contact with and (suspected) exposure to COVID-19; R07.9 Chest pain, unspecified; R10.13 Epigastric pain; R11.2 Nausea with vomiting, unspecified; J32.9 Chronic sinusitis, unspecified; E66.9 Obesity, unspecified; Z68.31 Body mass index [BMI] 31.0-31.9, adult; R00.1 Bradycardia, unspecified; Z79.890 Hormone replacement therapy; R51.9 Headache, unspecified; Z79.82 Long term (current) use of aspirin; Z79.84 Long term (current) use of oral hypoglycemic drugs; Z79.899 Other long term (current) drug therapy; Z83.3 Family history of diabetes mellitus
CPT/HCPCS: 36415; 70450; 70553; 71045; 74018; 80048; 80053; 80061; 81001; 82306; 82607; 82746; 82948; 84484; 85025; 85027; 85610; 85730; 87426; 87637; 93005; 94660; 96361; 96372; 96374; 96376; 97116; 97161; 97165; 97530; 97535; 99285; A9270; A9577; C9113; C9803; G0378; J0360; J1650; J2405; J7030

== ENCOUNTER → 2022-12-12 09:09 | Outpatient (CLI) | payer OTHER, SELFPAY ==
--- NOTE | ~2022-12-12 | MMUS_ITS ---
EXAMINATION: MM diagnostic dmitri LT w rosario, US breast LT limited HISTORY: History of left breast cancer status post recent left lumpectomy. TECHNIQUE: Additional 3-D tomosynthesis images of the left breast were performed and synthetic 2-D im ages were generated. CAD analysis was submitted and interpreted. High resolution Limited left breast ultrasound was performed. COMPARISON: Comparison to multiple prior studies sequentially, with oldest reviewed study dated 01/17. BREAST PARENCHYMAL COMPOSITION: Breast composed of scattered areas of fibroglandular density FINDINGS: MAMMOGRAPHIC FINDINGS: There is a mass with oval-shaped in the upper outer quadrant of the left breast, middle third. This c orresponds to the area of previous biopsy. No other suspicious masses, calcifications or architectura l distortion. ULTRASOUND: Limited left breast ultrasound: At 2:00, 4 cm from the nipple, there is a 3 mm cyst. At 2-3:00, 10 cm from the nipple in the area of biopsy scar there is an irregular shaped fluid collection with international trade specialist al septations and punctate echogenic foci. This is most likely postoperative maturing hematoma/seroma . IMPRESSION: 1. Probable benign postoperative left breast hematoma/seroma in the upper outer quadrant of the left breast. 2. Recommend 6 month follow-up diagnostic left mammogram with possible additional ultrasound. BI-RADS category 3, probably benign findings. Reviewed, dictated and finalized at location A. IMPRESSION: 1. Probable benign postoperative left breast hematoma/seroma in the upper outer quadrant of the left breast. 2. Recommend 6 month follow-up diagnostic left mammogram with possible addition al ultrasound. BI-RADS category 3, probably benign findings.
== END ==
PROVIDERS: PCP Family Medicine; Visit Provider Internal Medicine Hematology & Oncology
DX: C50.412 Malignant neoplasm of upper-outer quadrant of left female breast (principal); Z17.0 Estrogen receptor positive status [ER+]; R92.8 Other abnormal and inconclusive findings on diagnostic imaging of breast
CPT/HCPCS: 76642; 77061; 77065; G0279

== ENCOUNTER 2023-01-11 09:15 | Outpatient (RCR) | payer OTHER, SELFPAY ==
--- NOTE | 2022-12-18 11:13 | OTOPEVDC ---
Assessment and note entered by Ronny King, OTR/L, CHT Thank you for referring Odalis Aparicio to [facility].? An evaluation has been completed. No further treatment is needed. Evaluation Information Diagnosis dizziness, gait instability Subjective Information Patient presents with her daughter today. They report that she overdosed on vitamin D3 causing a plethora of symptoms, confusion, delirium, high blood pressure, etc. She has been staying with her daughter since discharging from the hospital. Prior to this she lived home alone. She reports she is back to being independent with ADLs. She is using a rollator for mobility. Her biggest complaint is her mobility - she would like to be able to walk better. 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 She takes gabapentin Assessment OT Clinical Summary Patient referred to outpatient OT with dx of gait instability and dizziness. She is reporting no functional deficits with ADLs, just a decline in her mobility since her recent hospitalizations. She has intact and functional UB strength, normal sitting balance, and functional endurance. No further skilled OT is indicated at this time. Thank you for this referral. Plan of Care OT Services Indicated No
--- NOTE | 2022-12-18 12:25 | PTOPEVAL1 ---
Assessment and note entered by Nubia Spencer, PT Evaluation Information Assessment Status Evaluation Diagnosis gait abnormality Onset June-July 2022 Subjective Information Patient referred to physical therapy due to recent decline in mobility after multiple hospitalizations due to vitamin D overdose. Patient has been residing with daughter since her decline in mobility. Before beginning June, patient was living independently in home and independent will all ADLs and going into the community with use of cane. Patient is currently residing with daughter and using 4ww for mobility. Patient reports dizziness has resolved at this time, reports 1 or 2 falls in August due to accidental overdose on vitamin d. Patient reports she is needing physical therapy due to decline in gait, balance, and strength. Patient goal is to return to use of straight cane and to return to community ambulation. 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 She takes gabapentin Assessment PT Clinical Summary Patient is 82 year old female referred due to gait abnormalities. Patient had complicated course of hospitalizations due to vitamin D overdose, patient is currently residing with her daughter and using a 4ww. Prior to hospitalizations patient was living at home independently and was independent with use of straight cane in community . Patient currently demonstrates impairments in lower extremity strength, balance indicated by Tinetti score of 12, and decreased endurance causing difficulty with gait speed/quality, stairs , and requiring use of 4ww. Recommending skilled PT 2x/wk for 4 weeks to improve lower extremity strength and balance in order to improve independence with gait and stairs and safely return to home environment Plan of Care Interventions Gait Training,Hot Pack/Cold Pack,Manual Therapy, Neuro Re-education,Patient/Caregiver Education, Therapeutic Activities,Therapeutic Exercise Other Interventions cupping, taping, iastm PT Services Indicated Yes Treatment Frequency and 2x/wk for 4 weeks Duration These treatments will address the objective and functional deficits as
--- NOTE | 2022-12-18 12:28 | OPREHPOC ---
Outpatient Therapy Plan of Care This is a Multidisciplinary Plan of Care that may contain components documented by all disciplines (PT, OT, and ST.) PT Problem 1 PT Problem #1 Knowledge Deficit PT Goal 1 Goal Patient will demonstrate independence with home exercise program PT Problem 2 PT Problem #2 Impaired Balance PT Goal 1 Goal Patient will increase Tinetti score to 19 indicating reduction in fall risk PT Problem 4 PT Problem #4 Impaired Gait PT Goal 1 Goal 1. Patient will perform 2 minute walk test with distance of 300 ft with least restrictive device 2. Patient will ambulate 150 ft with use of straight cane and supervision 3. Patient will ascend 3 stairs with 1 railing and supervision PT Problem 5 PT Problem #5 Impaired Strength PT Goal 1 Goal 1. Patient will perform 30 second sit to stand test with 16 repetions and use of BUEs for push off from chair.
--- NOTE | 2023-02-26 10:31 | PTOPDC ---
Assessment and note entered by Nubia Spencer, PT Evaluation Information Assessment Status Discharge - Pt Not Presen Diagnosis gait abnormality Onset june-july 2022 Subjective Information Patient referred to physical therapy due to recent decline in mobility after multiple hospitalizations due to vitamin D overdose. Patient has been residing with daughter since her decline in mobility. Before beginning June, patient was living independently in home and independent will all ADLs and going into the community with use of cane. Patient is currently residing with daughter and using 4ww for mobility. Patient reports dizziness has resolved at this time, reports 1 or 2 falls in august due to accidental overdose on vitamin d. Patient reports she is needing physical therapy due to decline in gait, balance, and strength. Patient goal is to return to use of straight cane and to return to community ambulation. Assessment PT Clinical Summary Patient has been participating in PT services to improve safety with functional mobility. Patient is no visit DC at this time due to not returning to clinic, patient has demonstrated progression with lower extremity strength, balance, and independence with stairs/gait. No additional PT needed at this time. Plan of Care PT Services Indicated Yes
== END 2023-02-26 13:46 | disposition home or self-care (01) ==
LOC: ANHPT 09:15
PROVIDERS: PCP Family Medicine
DX: R42 Dizziness and giddiness (principal); R26.81 Unsteadiness on feet
CPT/HCPCS: 97110; 97116; 97162; 97165; 97530

== ENCOUNTER 2023-03-15 09:14 | Outpatient (CLI) | payer OTHER, SELFPAY ==
[2023-03-15 09:49] LABS: Basophils Absolute Auto 0.1 K/mm3 (0.0-0.1); Eosinophils Absolute Auto 0.2 K/mm3 (0-0.3); Eosinophils Percent Auto 2.5 % (0-4.4); Hemoglobin 14.1 g/dL (12.0-15.0); Immature Granulocyte Absolute 0.02 K/mm3 (0.00-0.031); Immature Granulocyte Percent A 0.2 % (0-0.5); Lymphocytes Absolute Auto 3.65 K/mm3 (0.9-3.2); Lymphocytes Percent Auto 45.5 % (18.3-44.2); Mean Corpuscular Hemoglobin 28.7 pg (26-34); Mean Corpuscular Volume 89.6 fl (80-100); Mean Platelet Volume 11.2 fl (7.4-10.4); Monocytes Absolute Auto 0.6 K/mm3 (0.1-0.6); Neutrophils Absolute Auto 3.4 K/mm3 (1.3-6.7); Neutrophils Percent Auto 42.8 % (45.5-73.1); Platelet Count Result 318 k/mm3 (150-375); Red Blood Count 4.91 M/mm3 (4.2-5.4); Red Cell Distribution Width 13.2 % (11.5-14.5)
[2023-03-15 10:15] LABS: Alanine Aminotransferase 21 U/L (6-35); Albumin Level 4.3 g/dL (3.5-5.1); Alkaline Phosphatase 20 U/L (38-126); Anion Gap 9 mmol/L (8-16); Aspartate Amino Transferase 24 U/L (14-36); Bilirubin,Total 0.5 mg/dL (0.2-1.3); Blood Urea Nitrogen 26 mg/dL (7-17); Calcium 9.9 mg/dL (8.4-10.2); Carbon Dioxide 25 mmol/L (22-30); Chloride 106 mmol/L (98-107); Estimated Glomerular Filt Rate 47; Glucose 114 mg/dL (65-110); Potassium 4.6 mmol/L (3.4-5.0); Sodium 140 mmol/L (137-145)
[2023-03-20 20:44] LABS: CA 15-3 17 U/mL (<32)
== END 2023-03-15 09:15 | disposition home or self-care (01) ==
PROVIDERS: PCP Family Medicine; Visit Provider Internal Medicine Hematology & Oncology
DX: C50.412 Malignant neoplasm of upper-outer quadrant of left female breast (principal); Z17.0 Estrogen receptor positive status [ER+]
CPT/HCPCS: 36415; 80053; 85025; 86300

== ENCOUNTER 2023-06-19 09:21 | Outpatient (CLI) | payer OTHER, SELFPAY ==
[2023-06-19 09:51] LABS: Hematocrit 43.1 % (37.0-47.0); Hemoglobin 13.9 g/dL (12.0-15.0); Mean Corpuscular HGB Conc 32.3 g/dl (32-36); Mean Corpuscular Hemoglobin 28.7 pg (26-34); Mean Platelet Volume 10.6 fl (7.4-10.4); Platelet Count Result 328 k/mm3 (150-375); Red Blood Count 4.84 M/mm3 (4.2-5.4); Red Cell Distribution Width 13.9 % (11.5-14.5); White Blood Count 8.3 K/mm3 (4.5-10.0)
[2023-06-19 17:06] LABS: Appearance Urine Clear (Clear); Bacteria Urine None Seen /hpf; Bilirubin Urine Negative (Negative); Blood Urine Negative (Negative); Color Urine Yellow (Yellow); Creatinine Urine 70.6 mg/dL; Glucose Urine UA Negative (Negative); Ketones Urine Negative (Negative); Leukocyte Esterase Ur 1+ LEU/UL (NEGATIVE); Nitrate Urine Negative (Negative); Non Pathogenic Casts 0-2; Protein Urine Negative (Negative); RBC Urine 0-2 /hpf (0-2); Specific Grav Ur 1.014 (1.001-1.035); Squamous Epithelial Cell Urine Occasional /hpf (Few); Urobilinogen Urine 0.2 mg/dL (<2.0)
[2023-06-19 17:06] LABS: Alanine Aminotransferase 21 U/L (6-35); Albumin Level 4.3 g/dL (3.5-5.1); Alkaline Phosphatase 26 U/L (38-126); Anion Gap 7 mmol/L (8-16); Aspartate Amino Transferase 28 U/L (14-36); Bilirubin,Total 0.6 mg/dL (0.2-1.3); Blood Urea Nitrogen 27 mg/dL (7-17); Calcium 10.1 mg/dL (8.4-10.2); Carbon Dioxide 25 mmol/L (22-30); Chloride 108 mmol/L (98-107); Cholesterol 162 mg/dL (0-200); Estimated Glomerular Filt Rate 39; Glucose 105 mg/dL (65-110); HDL Direct 41 mg/dL; Potassium 4.6 mmol/L (3.4-5.0); Sodium 140 mmol/L (137-145); Triglycerides 129 mg/dL (<150)
[2023-06-19 17:11] LABS: MALB Creatinine Ratio 26.2 mg/g (0-30); Microalbumin Urine Random 18.5 mg/L (0-16.7)
[2023-06-19 17:17] LABS: LDL Cholesterol Direct 93 mg/dL
[2023-06-19 17:21] LABS: Hemoglobin A1C 6.7 % (<5.7)
[2023-06-19 17:25] LABS: Add Urine Microscopic? YES
== END 2023-06-19 09:22 | disposition home or self-care (01) ==
LOC: ANHLAB 09:23
PROVIDERS: PCP Family Medicine; Visit Provider Internal Medicine Hematology & Oncology
DX: E78.5 Hyperlipidemia, unspecified (principal); E11.22 Type 2 diabetes mellitus with diabetic chronic kidney disease; I12.9 Hypertensive chronic kidney disease with stage 1 through stage 4 chronic kidney disease, or unspecified chronic kidney disease; N18.30 Chronic kidney disease, stage 3 unspecified
CPT/HCPCS: 36415; 80053; 80061; 81001; 82043; 83036; 84443; 85027

== ENCOUNTER 2023-07-24 10:21 | Outpatient (CLI) | payer OTHER, SELFPAY ==
--- NOTE | ~2023-07-24 | MMUS_ITS ---
EXAMINATION: MM diagnostic dmitri BI w rosario, US breast LT limited HISTORY: 6 month follow-up left breast cancer TECHNIQUE: Additional 3-D tomosynthesis images of the left breast were performed and synthetic 2-D im ages were generated. CAD analysis was submitted and interpreted. High resolution Limited left breast ultrasound was performed. COMPARISON: Comparison to multiple prior studies sequentially, with oldest reviewed study dated 01/17. BREAST PARENCHYMAL COMPOSITION: Breast composed of scattered areas of fibroglandular density FINDINGS: MAMMOGRAPHIC FINDINGS: The right breast is stable without evidence for malignancy. Mass in the upper outer quadrant of the l eft breast is unchanged dating back to 12/16/2022, likely postoperative hematoma/stroma. ULTRASOUND: Limited left breast ultrasound: There is a 3 mm cyst at 2:00, 4 cm from the nipple. At 2-3:00, 10 cm from the nipple in the area of surgical scar there is a complex septated fluid collection without ass ociated vascularity measuring 3.3 x 3 x 1.1 cm compared with 3.5 x 3.2 x 1.2 cm on prior examination. No suspicious fluid collections to suggest abscess. IMPRESSION: 1. Slightly decreased size of septated fluid collection at 2-3 o'clock, 10 cm from the nipple, likely postoperative seroma. 2. Given one year of interval stability, recommend 12 month followup bilateral screening mammogram in Limited left breast ultrasound recommended. BI-RADS category 3, probably benign findings. Reviewed, dictated and finalized at location A. PRODUCTS SALES REPRESENTATIVE IMPRESSION: 1. Slightly decreased size of septated fluid collection at 2-3 o'clock, 10 cm f rom the nipple, likely postoperative seroma. 2. Given one year of interval stability, recommend 12 month followup bilateral screening mammogram in Limited left breast ultrasound recommended. BI-RADS category 3, probably benign findings.
== END 2023-07-24 10:22 | disposition home or self-care (01) ==
PROVIDERS: PCP Family Medicine; Visit Provider Internal Medicine Hematology & Oncology
DX: Z12.31 Encounter for screening mammogram for malignant neoplasm of breast (principal); C50.412 Malignant neoplasm of upper-outer quadrant of left female breast; Z17.0 Estrogen receptor positive status [ER+]
CPT/HCPCS: 76642; 77062; 77066; G0279

== ENCOUNTER 2023-07-30 09:46 | Outpatient (CLI) | payer OTHER, SELFPAY ==
[2023-07-30 10:13] LABS: Basophils Absolute Auto 0.1 K/mm3 (0.0-0.1); Eosinophils Absolute Auto 0.2 K/mm3 (0-0.3); Eosinophils Percent Auto 2.9 % (0-4.4); Hematocrit 43.3 % (37.0-47.0); Hemoglobin 13.7 g/dL (12.0-15.0); Immature Granulocyte Absolute 0.02 K/mm3 (0.00-0.031); Immature Granulocyte Percent A 0.2 % (0-0.5); Lymphocytes Absolute Auto 3.63 K/mm3 (0.9-3.2); Lymphocytes Percent Auto 43.4 % (18.3-44.2); Mean Corpuscular HGB Conc 31.6 g/dl (32-36); Mean Corpuscular Hemoglobin 28.4 pg (26-34); Mean Corpuscular Volume 89.8 fl (80-100); Monocytes Absolute Auto 0.7 K/mm3 (0.1-0.6); Monocytes Percent Auto 8.2 % (2.6-8.5); Neutrophils Absolute Auto 3.7 K/mm3 (1.3-6.7); Neutrophils Percent Auto 44.3 % (45.5-73.1); Platelet Count Result 323 k/mm3 (150-375); Red Blood Count 4.82 M/mm3 (4.2-5.4); Red Cell Distribution Width 13.4 % (11.5-14.5); White Blood Count 8.4 K/mm3 (4.5-10.0)
[2023-07-30 11:46] LABS: Alanine Aminotransferase 19 U/L (6-35); Albumin Level 3.9 g/dL (3.5-5.1); Alkaline Phosphatase 22 U/L (38-126); Anion Gap 8 mmol/L (8-16); Aspartate Amino Transferase 25 U/L (14-36); Bilirubin,Total 0.4 mg/dL (0.2-1.3); Blood Urea Nitrogen 25 mg/dL (7-17); Calcium 9.8 mg/dL (8.4-10.2); Carbon Dioxide 27 mmol/L (22-30); Chloride 107 mmol/L (98-107); Estimated Glomerular Filt Rate 47; Glucose 115 mg/dL (65-110); Potassium 4.3 mmol/L (3.4-5.0); Sodium 142 mmol/L (137-145)
[2023-07-30 12:03] LABS: Vitamin D 25 Hydroxy 52.8 ng/mL
[2023-08-01 20:05] LABS: CA 15-3 13 U/mL (<32)
== END 2023-07-30 09:47 | disposition home or self-care (01) ==
LOC: ANHLAB 09:48
PROVIDERS: PCP Family Medicine; Visit Provider Internal Medicine Hematology & Oncology
DX: E55.9 Vitamin D deficiency, unspecified (principal); C50.412 Malignant neoplasm of upper-outer quadrant of left female breast; Z17.0 Estrogen receptor positive status [ER+]
CPT/HCPCS: 36415; 80053; 82306; 85025; 86300

== ENCOUNTER 2023-08-19 13:42 | Outpatient (CLI) | payer OTHER, SELFPAY ==
--- NOTE | ~2023-08-19 | US_ITS ---
EXAMINATION: US venous doppler [facility] DATE: 08/19/2023 14:29 INDICATION: Acute embolism and thrombosis of unspecified deep vein TECHNIQUE: Grayscale ultrasound images without and with compression and Doppler ultrasound images of the left lower extremity veins were obtained. COMPARISON: None. FINDINGS: The popliteal vein is partially compressible with small amount of peripheral nonocclusive thrombus. T he visualized portions of left common femoral vein, profunda (deep) femoral vein, femoral vein, peron eal veins, posterior tibial veins, gastrocnemius vein and greater saphenous vein outflow are patent. IMPRESSION: 1. Small amount of nonocclusive deep venous thrombosis along the left popliteal vein. Dr. Yuen d iscussed these findings with Fauzia dubon since the PA for Dr. Lujan at 3:02 PM. Reviewed, dictated and finalized at location A. L GRINDER IMPRESSION: 1. Small amount of nonocclusive deep venous thrombosis along the left poplitea l vein. Dr. Yuen discussed these findings with Fauzia dubon since the PA for Dr. Lujan at 3:02 PM.
== END 2023-08-19 13:43 | disposition home or self-care (01) ==
PROVIDERS: PCP Family Medicine; Visit Provider Family Medicine
DX: I82.409 Acute embolism and thrombosis of unspecified deep veins of unspecified lower extremity (principal); I83.90 Asymptomatic varicose veins of unspecified lower extremity; M79.604 Pain in right leg; M79.605 Pain in left leg; M79.669 Pain in unspecified lower leg
CPT/HCPCS: 93971

== ENCOUNTER 2023-12-11 14:37 | Outpatient (CLI) | payer OTHER, SELFPAY ==
[2023-12-11 14:49] LABS: Basophils Absolute Auto 0.1 K/mm3 (0.0-0.1); Basophils Percent Auto 0.7 % (0.2-1.2); Eosinophils Absolute Auto 0.2 K/mm3 (0-0.3); Eosinophils Percent Auto 2.5 % (0-4.4); Hematocrit 42.7 % (37.0-47.0); Hemoglobin 13.7 g/dL (12.0-15.0); Immature Granulocyte Absolute 0.02 K/mm3 (0.00-0.031); Immature Granulocyte Percent A 0.2 % (0-0.5); Lymphocytes Absolute Auto 4.11 K/mm3 (0.9-3.2); Mean Corpuscular HGB Conc 32.1 g/dl (32-36); Mean Corpuscular Hemoglobin 28.6 pg (26-34); Mean Corpuscular Volume 89.1 fl (80-100); Mean Platelet Volume 11.1 fl (7.4-10.4); Monocytes Absolute Auto 0.7 K/mm3 (0.1-0.6); Monocytes Percent Auto 7.5 % (2.6-8.5); Neutrophils Absolute Auto 3.9 K/mm3 (1.3-6.7); Neutrophils Percent Auto 43.1 % (45.5-73.1); Platelet Count Result 310 k/mm3 (150-375); Red Blood Count 4.79 M/mm3 (4.2-5.4); Red Cell Distribution Width 13.7 % (11.5-14.5); White Blood Count 8.9 K/mm3 (4.5-10.0)
[2023-12-11 17:30] LABS: Alanine Aminotransferase 21 U/L (6-35); Albumin Level 4.1 g/dL (3.5-5.1); Alkaline Phosphatase 25 U/L (38-126); Anion Gap 9 mmol/L (4-12); Aspartate Amino Transferase 23 U/L (14-36); Bilirubin,Total 0.5 mg/dL (0.2-1.3); Blood Urea Nitrogen 26 mg/dL (7-17); Calcium 9.8 mg/dL (8.4-10.2); Carbon Dioxide 23 mmol/L (22-30); Chloride 109 mmol/L (98-107); Estimated Glomerular Filt Rate 43; Glucose 142 mg/dL (65-110); Sodium 141 mmol/L (137-145)
[2023-12-13 05:48] LABS: CA 15-3 12 U/mL (<32)
== END 2023-12-11 14:38 | disposition home or self-care (01) ==
LOC: ANHLAB 14:38
PROVIDERS: Nurse Practitioner Family; PCP Family Medicine; Visit Provider Internal Medicine Hematology & Oncology
DX: C50.412 Malignant neoplasm of upper-outer quadrant of left female breast (principal); Z17.0 Estrogen receptor positive status [ER+]
CPT/HCPCS: 36415; 80053; 85025; 86300

== ENCOUNTER 2023-12-18 11:30 | Outpatient (CLI) | payer OTHER, SELFPAY ==
[2023-12-18 12:42] LABS: Hemoglobin A1C 6.5 % (<5.7)
== END 2023-12-18 11:31 | disposition home or self-care (01) ==
LOC: ANHLAB 11:32
PROVIDERS: PCP Family Medicine; Visit Provider Family Medicine
DX: E11.22 Type 2 diabetes mellitus with diabetic chronic kidney disease (principal)
CPT/HCPCS: 36415; 83036

== ENCOUNTER 2024-02-01 10:53 | Emergency (ER) | payer OTHER, SELFPAY ==
--- NOTE | ~2024-02-01 | XR_ITS ---
XR foot LT min 3V 02/01/2024 11:38 Indication: Left foot pain Procedure: 3 views left foot Comparison: No prior studies for comparison. Findings: There is mild polyarticular osteoarthritis. There are degenerative calcaneal enthesophytes. Lisfranc joint intact. Osteopenia. Impression: 1: No acute fracture. Reviewed, dictated and finalized at location B. Impression: 1: No acute fracture.
[2024-02-01 11:22] VITALS: BP 142/82; PULSE 73; RESP 16; TEMP 36.6; O2SAT 100
--- NOTE | 2024-02-01 12:47 | ED.LOWEXIN ---
HPI - Extremity Injury (Lower) General Chief Complaint: Extremity Injury, Lower Stated Complaint: stubbed toe Time Seen by Provider: 02/01/24 11:43 History of Present Illness HPI Narrative: This is an 83-year-old female presenting to the emergency department for evaluation of left foot pain after she fainted on a chair. Patient's says she struck her left toe against the chair in the middle night while she was walking around. She injured her 3rd and 4th digit on that side. She states she has been having some trouble moving it. She is not taking anything for pain at home. Denies any other trauma did not hit her head or lose consciousness. She otherwise appears normal state of health and has no other acute complaints during this visit. Related Data Allergies Allergy/AdvReac Type Severity Reaction Status Date / Time clindamycin AdvReac Unknown Unknown Verified 12/18/23 10:28 Review of Systems Review of Systems: As reviewed above in the HPI and otherwise negative PMF Past Medical History Medical History Breast cancer, left Chest pain Chronic kidney disease, stage 3b Diabetes Obesity Sleep apnea Surgical History Surgical History S/P lumpectomy, left breast Needle localized Left Breast lumpectomy w/ SNL on 04/03/22. Family History Family History Sibling Hypertension Family history of diabetes mellitus in first degree relative Family history of coronary artery disease Mother Family history of diabetes mellitus in first degree relative Family history of coronary artery disease Father Family history of coronary artery disease Social History Social History Smoking status: Never smoker Second hand tobacco smoke exposure: No Alcohol intake: never Substance use: never Substance use type: does not use Lack of Transportation: No Lack of Food: Never True Current Housing: I Have Housing Concerned About Future Housing: No Difficulty Paying Gas/Electric Bills: No Difficulty Paying for Meds: No Currently Unemployed: No Education: High School Diploma/GED Difficulty w/ Childcare or Family Care: No Living arrangements: alone Occupation/Education: retired Gender identity (if verbalized by the patient): Female Sexual Orientation (if Verbalized by the Patient): Straight or Heterosexual Spiritual care concerns: No Exam Narrative: GENERAL: [Well-appearing, well-nourished, and in no acute distress.] HEAD: [Normocephalic, atraumatic.] EYES: [PERRLA and EOMI.] ENT: Nares clear, no rhinorrhea or epistaxis. Mucous membranes moist. NECK: Supple. CHEST: [Clear to auscultation. No respiratory distress.] HEART: [Regular rate and rhythm]. No murmur heard. [Normal peripheral pulses.] ABDOMEN: [Soft, nondistended], [nontender], [No rigidity or guarding] EXTREMITIES: Normal range of motion with no peripheral edema. She has some tenderness over the 2nd 3rd and 4th digit on the left foot without any step-offs deformities or limited range of motion. She is able to plantar and dorsiflex and invert astrid her ankle easily. Able to bear weight. No obvious bruising. SKIN: Warm, dry, no rash. NEURO: [No focal deficits]. Alert and oriented [x3.] PSYCH: [Normal mood and affect.] Course Vital Signs Vital signs: Vital Signs Temperature 36.6 C 02/01/24 11:22 Pulse Rate 73 02/01/24 11:22 Respiratory Rate 16 02/01/24 11:22 Blood Pressure 142/82 H 02/01/24 11:22 Pulse Oximetry 100 02/01/24 11:22 Temperature 36.6 C 02/01/24 11:22 Pulse Rate 73 02/01/24 11:22 Respiratory Rate 16 02/01/24 11:22 Blood Pressure 142/82 H 02/01/24 11:22 Pulse Oximetry 100 02/01/24 11:22 MDM - Extremity Injury (Lower) MDM Narrati
[2024-02-01] MEDS: ACETAMINOPHEN 500 MG TABLET 1000 MG PO (13:16)
== END 2024-02-01 13:46 | disposition home or self-care (01) ==
PROVIDERS: Emergency Provider Student in an Organized Health Care Education/Training Program; PCP Family Medicine
DX: S99.922A Unspecified injury of left foot, initial encounter (principal); E11.22 Type 2 diabetes mellitus with diabetic chronic kidney disease; N18.32 Chronic kidney disease, stage 3b; E66.9 Obesity, unspecified; Z68.30 Body mass index [BMI] 30.0-30.9, adult; G47.30 Sleep apnea, unspecified; Z85.3 Personal history of malignant neoplasm of breast; W22.03XA Walked into furniture, initial encounter
CPT/HCPCS: 73630; 99283; A9270

== ENCOUNTER 2024-03-20 21:15 | Observation (INO) | payer OTHER, SELFPAY ==
[2024-03-20] VITALS (13 sets, daily range): BP systolic 121–136; BP diastolic 66–76; PULSE 80–86; RESP 16; TEMP 36.2; O2SAT 92–99
--- NOTE | ~2024-03-20 | CT_ITS ---
CT abdomen pelvis wo con Ordering provider: Abbi Connors APRN History: 83 years Female with . flank pain, abdominal pain . Comparison: September 20, 2016 Technique: CT abdomen and pelvis without IV and without oral contrast. Automated exposure control and iterative reconstruction technique were employed. The dose-length product was 743.02 mGy-cm. Findings: VISUALIZED LOWER CHEST: Dependent atelectatic changes. 7 mm nodule in the left lower lobe area. 5 mm nodule in the right middle lobe. UPPER ABDOMINAL ORGANS: Liver: Normal. Gallbladder: Normal. Spleen: Normal. Stomach/duodenum: Sliding hiatus hernia. Pancreas: Normal. Adrenals: Normal. Kidneys: Large left kidney upper pole cyst with calcification is seen measuring 6 x 4.8 cm. PELVIC ORGANS: The bladder is slightly underfilled with thickened wall. Right ovarian cyst measuring 3.1 x 2.6 cm. BOWEL AND MESENTERY: Colon: No evidence of diverticulitis. Thickened wall of the sigmoid colon which may indicate colitis. Clinical correlation advised. Normal appendix. Small Bowel: Normal. No obstruction. Peritoneum/mesentery: No free air or free fluid. No mesenteric lymphadenopathy. RETROPERITONEUM: Mild atheromatous disease of the abdominal aorta. No retroperitoneal lymphadenopat hy. MUSCULOSKELETAL: Superficial soft tissues: The superficial soft tissues are normal. Bones: Anterolisthesis at the level of L4-L5. Multilevel degenerative disc disease. Bilateral sacroil iitis. Bilateral hip osteoarthritic changes. IMPRESSION: 1. No evidence of appendicitis, colitis or intestinal obstruction. No definite kidney stones. 2. Enlarged left renal cyst with calcification most likely Bosniak type II. 3. Slightly thickened wall of the sigmoid colon which may indicate colitis. Clinical correlation an d if warranted sigmoidoscopy is advised. 4. Right ovarian cyst. 5. 2 nodules in the lung bases. Follow-up low-dose CT is advised in 6 months. Reviewed, dictated and finalized at location A. IMPRESSION: 1. No evidence of appendicitis, colitis or intestinal obstruction. No definite kidney stones. 2. Enlarged left renal cyst with calcification most likely Bosniak type II. 3. Slightly thickened wall of the sigmoid colon which may indicate colitis. C linical correlation and if warranted sigmoidoscopy is advised. 4. Right ovarian cyst. 5. 2 nodules in the lung bases. Follow-up low-dose CT is advised in 6 months.
--- NOTE | ~2024-03-20 | US_ITS ---
EXAMINATION: US venous doppler UE RT DATE: 03/22/2024 10:34 INDICATION: Hematoma at the right antecubital fossa. TECHNIQUE: Grayscale images without and with compression and Doppler images of the bilateral upper ex tremity veins were obtained. COMPARISON: None. FINDINGS: The right internal jugular vein, subclavian vein, axillary vein, brachial vein, basilic vein, cephali c vein, radial vein, and ulnar vein are patent. IMPRESSION: 1. Patent right upper extremity veins. No evidence of venous thrombosis. Reviewed, dictated and finalized at location A.
[2024-03-20 22:15] LABS: Basophils Absolute Auto 0.1 K/mm3 (0.0-0.1); Basophils Percent Auto 0.7 % (0.2-1.2); Eosinophils Absolute Auto 0.2 K/mm3 (0-0.3); Eosinophils Percent Auto 1.9 % (0-4.4); Hematocrit 41.9 % (37.0-47.0); Hemoglobin 13.4 g/dL (12.0-15.0); Immature Granulocyte Absolute 0.03 K/mm3 (0.00-0.031); Immature Granulocyte Percent A 0.3 % (0-0.5); Lymphocytes Absolute Auto 4.01 K/mm3 (0.9-3.2); Lymphocytes Percent Auto 36.4 % (18.3-44.2); Mean Corpuscular Hemoglobin 28.9 pg (26-34); Mean Corpuscular Volume 90.5 fl (80-100); Mean Platelet Volume 11.2 fl (7.4-10.4); Monocytes Absolute Auto 0.9 K/mm3 (0.1-0.6); Monocytes Percent Auto 7.9 % (2.6-8.5); Neutrophils Absolute Auto 5.8 K/mm3 (1.3-6.7); Neutrophils Percent Auto 52.8 % (45.5-73.1); Platelet Count Result 293 k/mm3 (150-375); Red Blood Count 4.63 M/mm3 (4.2-5.4); Red Cell Distribution Width 13.9 % (11.5-14.5)
[2024-03-20 22:39] LABS: Alanine Aminotransferase 24 U/L (6-35); Albumin Level 3.8 g/dL (3.5-5.1); Alkaline Phosphatase 25 U/L (38-126); Anion Gap 12 mmol/L (4-12); Aspartate Amino Transferase 22 U/L (14-36); Bilirubin,Total 0.2 mg/dL (0.2-1.3); Blood Urea Nitrogen 34 mg/dL (7-17); Calcium 9.7 mg/dL (8.4-10.2); Carbon Dioxide 26 mmol/L (22-30); Chloride 102 mmol/L (98-107); Estimated CRCL calculation 23 ml/min; Estimated Glomerular Filt Rate 33; Glucose 186 mg/dL (65-110); Potassium 3.8 mmol/L (3.4-5.0); Sodium 140 mmol/L (137-145)
[2024-03-20 22:43] LABS: Add Urine Microscopic? YES; Appearance Urine Turbid (Clear); Bacteria Urine 4+ /hpf; Bilirubin Urine Negative (Negative); Blood Urine 1+ (Negative); Calcium Oxalate Crystals Urine Present /hpf; Color Urine Yellow (Yellow); Glucose Urine UA Negative (Negative); Hyaline Casts Urine Present /lpf; Ketones Urine Trace mg/dL (Negative); Leukocyte Esterase Ur 2+ LEU/UL (Negative); Mucus Urine Present /lpf; Need Manual Microscopic Reviewed; Nitrate Urine Negative (Negative); Protein Urine 1+ mg/dL (Negative); RBC Urine 21-50 /hpf (0-2); Specific Grav Ur 1.025 (1.001-1.035); Squamous Epithelial Cell Urine Few /hpf (Few); WBC Urine >100 /hpf (0-3)
[2024-03-20] MEDS: MORPHINE SULFATE (*CRX) 4 MG/ML INJ 2 MG IV PUSH (23:01)
[2024-03-20] MEDS: SODIUM CHLORIDE 0.9% IV 1,000 ML 999 ML IV CONT (23:01)
--- NOTE | 2024-03-20 23:02 | ED.FEMALEGU ---
HPI - Female Genitourinary General Chief complaint: Urogenital-Female <Abbi Connors APRN - Last Filed: 03/21/24 02:02> Stated complaint: Left flank pain, no urination since 1400 <Abbi Connors APRN - Last Filed: 03/21/24 02:02> Time Seen by Provider: 03/20/24 21:54 <Abbi Connors APRN - Last Filed: 03/21/24 02:02> Source: patient and family <Abbi Connors APRN - Last Filed: 03/21/24 02:02> Limitations: no limitations <Abbi Connors APRN - Last Filed: 03/21/24 02:02> History of Present Illness HPI Narrative: Patient is an 83-year-old female who presents to the ER with complaints of left upper back pain. She reports she has not produced much urine today. Patient endorses mild abdominal pain. She denies any visible blood in her urine, chest pain, or other symptoms of illness. <Abbi Connors APRN - Last Filed: 03/21/24 02:02> MD elicited complaint: back pain, flank pain and difficulty urinating <Abbi Connors APRN - Last Filed: 03/21/24 02:02> Related Data Allergies/Adverse reactions: Allergies Allergy/AdvReac Type Severity Reaction Status Date / Time No Known Allergies Allergy Verified 03/20/24 21:19 <Abbi Connors APRN - Last Filed: 03/21/24 02:02> Review of Systems Review of Systems: All systems reviewed & are unremarkable except as noted in HPI and below <Abbi Connors APRN - Last Filed: 03/21/24 02:02> [facility] Past Medical History Medical History: Medical History Breast cancer, left Chest pain Chronic kidney disease, stage 3b Diabetes Obesity Sleep apnea <Abbi Connors APRN - Last Filed: 03/21/24 02:02> Surgical History Surgical History: Surgical History S/P lumpectomy, left breast Needle localized Left Breast lumpectomy w/ SNL on 04/03/22. <Abbi Connors APRN - Last Filed: 03/21/24 02:02> Family History Family History: Family History Sibling Hypertension Family history of diabetes mellitus in first degree relative Family history of coronary artery disease Mother Family history of diabetes mellitus in first degree relative Family history of coronary artery disease Father Family history of coronary artery disease <Abbi Connors APRN - Last Filed: 03/21/24 02:02> Social History Social History: Social History Smoking status: Never smoker Second hand tobacco smoke exposure: No Alcohol intake: never Substance use: never Substance use type: does not use Lack of Transportation: No Lack of Food: Never True Current Housing: I Have Housing Concerned About Future Housing: No Difficulty Paying Gas/Electric Bills: No Difficulty Paying for Meds: No Currently Unemployed: No Education: High School Diploma/GED Difficulty w/ Childcare or Family Care: No Living arrangements: alone Occupation/Education: retired Gender identity (if verbalized by the patient): Female Sexual Orientation (if Verbalized by the Patient): Straight or Heterosexual Spiritual care concerns: No <Abbi Connors APRN - Last Filed: 03/21/24 02:02> Exam Narrative: GENERAL: Well appearing, well-nourished, non-toxic, in no acute distress. HEAD: Normocephalic, atraumatic. NECK: Supple. No adenopathy, no masses. RESPIRATORY: Airway patent, respirations nonlabored. Clear to auscultation bilaterally, no rales, rhonchi, wheezing. CARDIOVASCULAR: Regular rate and rhythm without murmurs, rubs, or gallops. Peripheral pulses 2+ and equal bilaterally. ABDOMINAL: Soft, mildly tender bilateral lower quadrants, nondistended, no hepatosplenomegaly. Normoactive BS. MUSCULOSKELETAL: Moves all extremities. Strength/ROM intact without gross deformities
--- NOTE | 2024-03-20 23:03 | PC.NURSE ---
Patient taken to ct at this time.
--- NOTE | 2024-03-20 23:11 | PC.NURSE ---
IV fluids, 0.9% NS hung per order placed by ERP. Unable to save med in SEP. Fluids hung and started at 2301.
[2024-03-21] VITALS (11 sets, daily range): BP systolic 124–148; BP diastolic 59–87; PULSE 67–85; RESP 16–20; TEMP 36.2–36.6; O2SAT 91–98; BMI 33.7; BMI 34.2
[2024-03-21 00:31] LABS: INR 1.3; Prothrombin Time 16.5 Seconds (11.1-14.7)
[2024-03-21 00:32] LABS: Partial Thromboplastin Time 28.2 Seconds (22.3-36.8)
[2024-03-21] MEDS: cefTRIAXone 2 GM/NS 100 ML 2 GM/100 ML BAG IVPB (00:55)
[2024-03-21 01:09] LABS: CRP < 0.5 mg/dL (<1.0)
[2024-03-21 01:15] LABS: Lactic Acid Reflex 1.4 mmol/L (0.7-2.0)
--- NOTE | 2024-03-21 01:21 | PM.IMHP ---
H&P: HPI History of Present Illness Date/Time: 03/21/24 01:21 Chief Complaint: flank pain Narrative: this is an 83-year-old female with past medical history significant for type diabetes mellitus, hypertension, chronic kidney disease, sleep apnea. Patient presents to the emergency room due to 3-4 days of urinary urgency, frequency, pain or burning with urination flank pain back pain, chills, generalized weakness, fevers, poor per orally intake, poor appetite. Preliminary workup was significant for urinalysis with numerous WBCs present. Patient has been admitted for further evaluation management and treatment. CT abdomen pelvis wo con Ordering provider: Abbi Connors APRN History: 83 years Female with . flank pain, abdominal pain . Comparison: September 20, 2016 Technique: CT abdomen and pelvis without IV and without oral contrast. Automated exposure control and iterative reconstruction technique were employed. The dose-length product was 743.02 mGy-cm. Findings: VISUALIZED LOWER CHEST: Dependent atelectatic changes. 7 mm nodule in the left lower lobe area. 5 mm nodule in the right middle lobe. UPPER ABDOMINAL ORGANS: Liver: Normal. Gallbladder: Normal. Spleen: Normal. Stomach/duodenum: Sliding hiatus hernia. Pancreas: Normal. Adrenals: Normal. Kidneys: Large left kidney upper pole cyst with calcification is seen measuring 6 x 4.8 cm. PELVIC ORGANS: The bladder is slightly underfilled with thickened wall. Right ovarian cyst measuring 3.1 x 2.6 cm. BOWEL AND MESENTERY: Colon: No evidence of diverticulitis. Thickened wall of the sigmoid colon which may indicate colitis. Clinical correlation advised. Normal appendix. Small Bowel: Normal. No obstruction. Peritoneum/mesentery: No free air or free fluid. No mesenteric lymphadenopathy. RETROPERITONEUM: Mild atheromatous disease of the abdominal aorta. No retroperitoneal lymphadenopathy. MUSCULOSKELETAL: Superficial soft tissues: The superficial soft tissues are normal. Bones: Anterolisthesis at the level of L4-L5. Multilevel degenerative disc disease. Bilateral sacroiliitis. Bilateral hip osteoarthritic changes. IMPRESSION: 1. No evidence of appendicitis, colitis or intestinal obstruction. No definite kidney stones. 2. Enlarged left renal cyst with calcification most likely Bosniak type II. 3. Slightly thickened wall of the sigmoid colon which may indicate colitis. Clinical correlation and if warranted sigmoidoscopy is advised. 4. Right ovarian cyst. 5. 2 nodules in the lung bases. Follow-up low-dose CT is advised in 6 months. Review of Systems Review of Systems: Urinary frequency, pain or burning with urination, flank pain, back pain, fevers, chills, poor per orally intake PMFSH Past Medical History Medical History Breast cancer, left Chest pain Chronic kidney disease, stage 3b Diabetes Obesity Sleep apnea Surgical History Surgical History S/P lumpectomy, left breast Needle localized Left Breast lumpectomy w/ SNL on 04/03/22. Family History Family History Sibling Hypertension Family history of diabetes mellitus in first degree relative Family history of coronary artery disease Mother Family history of diabetes mellitus in first degree relative Family history of coronary artery disease Father Family history of coronary artery disease Social History Social History Smoking status: Never smoker Second hand tobacco smoke exposure: No Alcohol intake: never Substance use: never Substance use type: does not use Lack of Transportation: No Lack of Food: Never True Current Housing: I Have Housing Concerned About Future Housing: No Difficulty Paying Gas/Electric
[2024-03-21] MEDS: MORPHINE SULFATE (*CRX) 2 MG/ML INJ IV PUSH ×5 (01:27→20:05)
--- NOTE | 2024-03-21 02:11 | PC.NURSE ---
Patient stated she felt she needed to urinate, patient was placed on a bed antunez but was unable to go. Bladder scan was 40ml. Patient was then being evaluated by hospitalist, GENE by to straight cath patient.
--- NOTE | 2024-03-21 02:42 | ADMGEN ---
This patient, Odalis Aparicio, was admitted to 2 Medical Room 257-01. Patient/family oriented to hospital policies and general routines including ID bracelet, bed and alarms, visiting hours, pain management, procedures, bathroom and other care routines, personal items, smoking policy, room service/diet, and visiting hours. Information on how to activate the Rapid Response Team has been discussed. Patient/Family are encouraged to report perceived risks to care and to ask questions if they do not understand what they are told or what they should do. Report received from Carmen RN in ED.
[2024-03-21] MEDS: SODIUM CHLORIDE 0.9% IV 1,000 ML 125 ML IV CONT ×2 (03:09→15:00)
[2024-03-21 09:27] LABS: Hematocrit 39.8 % (37.0-47.0); Hemoglobin 12.9 g/dL (12.0-15.0); Mean Corpuscular HGB Conc 32.4 g/dl (32-36); Mean Corpuscular Hemoglobin 29.5 pg (26-34); Mean Corpuscular Volume 91.1 fl (80-100); Mean Platelet Volume 11.2 fl (7.4-10.4); Platelet Count Result 264 k/mm3 (150-375); Red Blood Count 4.37 M/mm3 (4.2-5.4); Red Cell Distribution Width 13.8 % (11.5-14.5); White Blood Count 8.6 K/mm3 (4.5-10.0)
[2024-03-21] MEDS: APIXABAN 5 MG TABLET PO ×2 (09:35→20:06)
[2024-03-21] MEDS: carvediloL 6.25 MG TABLET PO ×2 (09:35→17:34)
[2024-03-21] MEDS: FENOFIBRATE NANOCRYSTALLIZED 145 MG TABLET PO (09:35)
[2024-03-21] MEDS: GABAPENTIN 300 MG CAPSULE PO ×2 (09:35→17:35)
[2024-03-21] MEDS: SIMVASTATIN 20 MG TABLET PO (09:35)
[2024-03-21 09:43] LABS: Alanine Aminotransferase 22 U/L (6-35); Albumin Level 3.5 g/dL (3.5-5.1); Anion Gap 12 mmol/L (4-12); Aspartate Amino Transferase 23 U/L (14-36); Bilirubin,Total 0.4 mg/dL (0.2-1.3); Blood Urea Nitrogen 28 mg/dL (7-17); Calcium 8.6 mg/dL (8.4-10.2); Carbon Dioxide 18 mmol/L (22-30); Chloride 109 mmol/L (98-107); Estimated CRCL calculation 34 ml/min; Estimated Glomerular Filt Rate 53; Glucose 186 mg/dL (65-110); Potassium 3.3 mmol/L (3.4-5.0); Sodium 139 mmol/L (137-145)
[2024-03-21 09:45] LABS: Alkaline Phosphatase < 20 U/L (38-126)
--- NOTE | 2024-03-21 11:03 | PM.EVENT ---
Event Note Event Note Event Note: Patient was seen and assessed previous provider same day. Follow-up assessment patient with no complaints and states she was able to void now had retention on admission. Patient was afebrile normal WBC. Patient denied ABD pain and no difficulty having bowel movements. Bladder scan post void ordered will need to monitor for retention and UA cultures, IV ABX continued pending cultures.
[2024-03-21 13:09] LABS: Glucose Point of Care 247 mg/dl (65-105)
[2024-03-21 16:49] LABS: Glucose Point of Care 115 mg/dl (65-105)
[2024-03-21 20:46] LABS: Glucose Point of Care 151 mg/dl (65-105)
[2024-03-22] MEDS: SODIUM CHLORIDE 0.9% IV 1,000 ML 125 ML IV CONT (02:21)
[2024-03-22 05:20] VITALS: BP 132/63; PULSE 76; RESP 18; TEMP 36.3; O2SAT 94
[2024-03-22 05:26] LABS: Hematocrit 38.9 % (37.0-47.0); Hemoglobin 12.1 g/dL (12.0-15.0); Mean Corpuscular HGB Conc 31.1 g/dl (32-36); Mean Corpuscular Hemoglobin 28.9 pg (26-34); Mean Corpuscular Volume 93.1 fl (80-100); Mean Platelet Volume 11.1 fl (7.4-10.4); Platelet Count Result 254 k/mm3 (150-375); Red Blood Count 4.18 M/mm3 (4.2-5.4); White Blood Count 8.6 K/mm3 (4.5-10.0)
[2024-03-22 05:35] LABS: Alanine Aminotransferase 19 U/L (6-35); Albumin Level 3.1 g/dL (3.5-5.1); Alkaline Phosphatase 22 U/L (38-126); Anion Gap 9 mmol/L (4-12); Aspartate Amino Transferase 19 U/L (14-36); Bilirubin,Total 0.3 mg/dL (0.2-1.3); Blood Urea Nitrogen 20 mg/dL (7-17); Calcium 8.4 mg/dL (8.4-10.2); Carbon Dioxide 20 mmol/L (22-30); Chloride 110 mmol/L (98-107); Estimated CRCL calculation 38 ml/min; Estimated Glomerular Filt Rate 60; Glucose 117 mg/dL (65-110); Sodium 139 mmol/L (137-145)
[2024-03-22 08:15] LABS: Glucose Point of Care 115 mg/dl (65-105)
[2024-03-22 09:00] VITALS: PULSE 64
[2024-03-22] MEDS: carvediloL 6.25 MG TABLET PO (09:00)
[2024-03-22] MEDS: GABAPENTIN 300 MG CAPSULE PO (09:01)
[2024-03-22] MEDS: APIXABAN 5 MG TABLET PO (09:01)
[2024-03-22] MEDS: FENOFIBRATE NANOCRYSTALLIZED 145 MG TABLET PO (09:01)
[2024-03-22] MEDS: SIMVASTATIN 20 MG TABLET PO (09:01)
--- NOTE | 2024-03-22 09:46 | PCPTNOTE ---
attempted PT eval, pt states she does not want/need physical therapy and is leaving today, per RN pt has been moving around the room with her walker, if pt's condition declines please reassess therapy orders, DC'ing orders per pt's request and RN approval
[2024-03-22 11:48] LABS: Glucose Point of Care 147 mg/dl (65-105)
--- NOTE | 2024-03-22 11:54 | PM.DS ---
DS: Admitting Diagnosis Discharge Date 03/22/2024 Admitting Diagnosis UTI/Weakness DS: Discharge Diagnosis Discharge Diagnosis (1) Type 2 diabetes mellitus with diabetic chronic kidney disease: Code(s): E11.22 - Type 2 diabetes mellitus with diabetic chronic kidney disease Status: Chronic Assessment and Plan: will hold metformin insulin sliding scale as needed (2) Hypertensive chronic kidney disease with stage 1 through stage 4 chronic kidney disease, or unspecified chronic kidney disease: Code(s): I12.9 - Hypertensive chronic kidney disease with stage 1 through stage 4 chronic kidney disease, or unspecified chronic kidney disease Status: Chronic Assessment and Plan: daily BMP continue to monitor BUN and creatinine (3) Diabetes: Code(s): E11.9 - Type 2 diabetes mellitus without complications Status: Acute (4) E-coli UTI: Code(s): N39.0 - Urinary tract infection, site not specified; B96.20 - Unspecified Escherichia coli [E. coli] as the cause of diseases classified elsewhere Status: Acute (5) Urinary tract infection: Code(s): N39.0 - Urinary tract infection, site not specified Status: Acute Assessment and Plan: admit to regular medical floor started on Rocephin await cultures (6) AIDEN (obstructive sleep apnea): Code(s): G47.33 - Obstructive sleep apnea (adult) (pediatric) Status: Chronic Assessment and Plan: CPAP at nighttime (7) Diabetic neuropathy: Code(s): E11.40 - Type 2 diabetes mellitus with diabetic neuropathy, unspecified Status: Chronic Assessment and Plan: unchanged (8) Lower back pain: Code(s): M54.50 - Low back pain, unspecified Status: Acute Assessment and Plan: Tylenol p.r.n. (9) Lumbar spinal stenosis: Code(s): M48.061 - Spinal stenosis, lumbar region without neurogenic claudication Status: Acute Assessment and Plan: unchanged Plan Disposition: Discharge to home DS: Summary Hospital Course Reason for hospitalization: UTI/weakness Hospital Course: patient was an 83-year-old female who presented to the emergency department with complaints of flank pain, generalized weakness, urinary urgency, frequency, pain and burning with urination that had been going on for 3-4 days. Patient did report a past medical history of diabetes, hypertension, CKD, and sleep apnea. Patient had stated she was having poor oral intake and decreased ability to ambulate. Patient's urinary analysis was highly suspicious for urinary tract infection patient was admitted to the medical unit for further evaluation and treatment. Patient was started on IV Rocephin and culture sensitivities showed a report of urinary tract infection with E coli. Patient had no leukocytosis, remained afebrile, denied any chest pain, shortness of breath chills, dizziness, or abdominal pain. Patient reported overall improvement after initial dose of IV antibiotic therapy stated she felt as though she was back to her baseline. Patient was discharged home on Augmentin E coli UTI. of note patient did have an infiltrated IV during admission encourage elevation and warm compress ultrasound showed no DVT. Status at Discharge Functional status at discharge: uses cane/walker Time Spent with Patient Time attestation: Total time spent providing and/or coordinating discharge services: Time spent: Greater than 30 minutes Exam Narrative: Const: General: comfortable, no acute distress, well developed, alert, awake, ill appearing acutely and average body habitus Nutritional Appearance: average body habitus Orientation/consciousness: patient oriented x3 HENMT: Head: normal to inspection, normocephalic and atraumatic Ears: hearing grossly normal bilaterally Face/Nose/Sinus: normal facial exam Face and sinus: normal facial exam Eyes: General: appearance normal, both
== END 2024-03-22 13:30 | disposition home or self-care (01) ==
LOC: ANHED 03-21 02:00 → ANH2MED 03-21 02:27
PROVIDERS: Emergency Medicine; Admitting Provider Internal Medicine; Emergency Provider Registered Nurse; PCP Family Medicine; Visit Provider Nurse Practitioner Family
DX: N39.0 Urinary tract infection, site not specified (principal); B96.20 Unspecified Escherichia coli [E. coli] as the cause of diseases classified elsewhere; S40.021A Contusion of right upper arm, initial encounter; I12.9 Hypertensive chronic kidney disease with stage 1 through stage 4 chronic kidney disease, or unspecified chronic kidney disease; E11.22 Type 2 diabetes mellitus with diabetic chronic kidney disease; N18.32 Chronic kidney disease, stage 3b; G47.33 Obstructive sleep apnea (adult) (pediatric); E11.40 Type 2 diabetes mellitus with diabetic neuropathy, unspecified; M54.50 Low back pain, unspecified; M48.061 Spinal stenosis, lumbar region without neurogenic claudication; Z85.3 Personal history of malignant neoplasm of breast; E66.9 Obesity, unspecified; Z68.34 Body mass index [BMI] 34.0-34.9, adult; Z79.01 Long term (current) use of anticoagulants; Z79.84 Long term (current) use of oral hypoglycemic drugs; Z79.811 Long term (current) use of aromatase inhibitors; T80.89XA Other complications following infusion, transfusion and therapeutic injection, initial encounter; Y82.8 Other medical devices associated with adverse incidents
CPT/HCPCS: 36415; 74176; 80053; 81001; 82948; 83605; 85025; 85027; 85610; 85730; 86140; 87040; 87077; 87086; 87088; 87186; 93971; 96361; 96365; 96375; 96376; 99285; A9270; G0378; J0696; J2270; J7030

== ENCOUNTER 2024-03-31 10:29 | Outpatient (NON) | payer OTHER, SELFPAY ==
[2024-03-31 11:23] LABS: Add Urine Microscopic? YES; Appearance Urine Clear (Clear); Bacteria Urine None Seen /hpf; Bilirubin Urine Negative (Negative); Blood Urine Negative (Negative); Calcium Oxalate Crystals Urine Present /hpf; Color Urine Yellow (Yellow); Glucose Urine UA Negative (Negative); Ketones Urine Negative (Negative); Leukocyte Esterase Ur Trace LEU/UL (Negative); Need Manual Microscopic Reviewed; Nitrate Urine Negative (Negative); Non Pathogenic Casts 0-2; Protein Urine Negative (Negative); RBC Urine 0-2 /hpf (0-2); Specific Grav Ur 1.014 (1.001-1.035); Squamous Epithelial Cell Urine None Seen /hpf (Few); Urobilinogen Urine 0.2 mg/dL (<2.0); WBC Urine 0-5 /hpf (0-3); pH Urine 5.5 (5.0-9.0)
== END 2024-03-31 10:30 | disposition home or self-care (01) ==
PROVIDERS: PCP Family Medicine; Visit Provider Family Medicine
DX: N39.0 Urinary tract infection, site not specified (principal)
CPT/HCPCS: 81001

== ENCOUNTER 2024-04-28 14:14 | Outpatient (CLI) | payer OTHER, SELFPAY ==
--- NOTE | ~2024-04-28 | US_ITS ---
EXAMINATION:US venous doppler LE LT INDICATION:Deep venous thrombosis of the left lower extremity TECHNIQUE: Multiple grayscale, color flow and Doppler images of the left lower extremity deep venous systems were obtained and reviewed. COMPARISON:Ultrasound dated 08/19/2023 FINDINGS: The common femoral, superficial femoral veins demonstrate normal respiratory variation, aug mentation and compressibility. There is chronic deep venous thrombosis of the left popliteal vein. Co heidi flow is also seen within the posterior tibial, peroneal, greater saphenous and profunda veins. IMPRESSION: 1: Chronic deep venous thrombosis of the left popliteal vein. Reviewed, dictated and finalized at location B.
== END 2024-04-28 14:15 | disposition home or self-care (01) ==
PROVIDERS: PCP Family Medicine; Visit Provider Family Medicine
DX: I82.532 Chronic embolism and thrombosis of left popliteal vein (principal)
CPT/HCPCS: 93971

== ENCOUNTER 2024-05-15 11:30 | Outpatient (CLI) | payer OTHER, SELFPAY ==
[2024-05-15 12:35] LABS: Influenza A QL RT-PCR Negative (Negative); Influenza B QL RT-PCR Negative (Negative); RSV RNA, RT-PCR Negative (Negative); SARS-CoV-2 RNA PCR Negative (Negative)
== END 2024-05-15 11:31 | disposition home or self-care (01) ==
LOC: ANHLAB 11:32
PROVIDERS: PCP Family Medicine; Visit Provider Family Medicine
DX: R05.9 Cough, unspecified (principal); Z20.822 Contact with and (suspected) exposure to COVID-19
CPT/HCPCS: 87637

== ENCOUNTER 2024-05-26 14:01 | Outpatient (CLI) | payer OTHER, SELFPAY ==
[2024-05-26 14:41] LABS: Alanine Aminotransferase 20 U/L (6-35); Albumin Level 3.9 g/dL (3.5-5.1); Alkaline Phosphatase 30 U/L (38-126); Anion Gap 8 mmol/L (4-12); Aspartate Amino Transferase 26 U/L (14-36); Bilirubin,Total 0.8 mg/dL (0.2-1.3); Blood Urea Nitrogen 17 mg/dL (7-17); Calcium 9.7 mg/dL (8.4-10.2); Carbon Dioxide 25 mmol/L (22-30); Chloride 104 mmol/L (98-107); Estimated Glomerular Filt Rate 47; Glucose 178 mg/dL (65-110); Potassium 3.8 mmol/L (3.4-5.0); Sodium 137 mmol/L (137-145)
[2024-05-27 20:08] LABS: Lupus dRVVT Screen 38 sec (< OR = 45); PTT-LA Screen 30 sec (< OR = 40)
[2024-05-28 03:05] LABS: Anti Cardio Antibody IgM <2.0 MPL-U/mL; Anti Cardiolipin Antibody IgA <2.0 APL-U/mL; Anti Cardiolipin Antibody IgG <2.0 GPL-U/mL
[2024-05-30 06:08] LABS: Antithrombin III Activity 85 % normal (80-135)
== END 2024-05-26 14:02 | disposition home or self-care (01) ==
LOC: ANHLAB 14:01
PROVIDERS: PCP Family Medicine; Visit Provider Family Medicine
DX: D68.9 Coagulation defect, unspecified (principal); I82.409 Acute embolism and thrombosis of unspecified deep veins of unspecified lower extremity; E11.22 Type 2 diabetes mellitus with diabetic chronic kidney disease
CPT/HCPCS: 36415; 80053; 85300; 85303; 85306; 85613; 85730; 86147

== ENCOUNTER 2024-05-29 08:10 | Outpatient (CLI) | payer OTHER, SELFPAY ==
--- NOTE | ~2024-05-29 | DEXA_ITS ---
Bone Density Report Name: FRITZ THAKKAR Age: 83 Sex: Female Ethnicity: White Date of : 1940 Indication: postmenopausal; screening for osteoporosis; height loss; history of glucocorticoids; Referring Provider: CRISTEL GOMEZ Study: Bone densitometry was performed. Exam Date: May 29, 2024 Accession number: [id number] Bone Density: Region BMD T-score Z-score Classification AP Spine(L1-L4) 1.199 1.4 4.3 Normal Femoral Neck (Left) 0.646 -1.8 0.7 Osteopenia Total Hip (Left) 0.880 -0.5 1.8 Normal Femoral Neck (Right) 0.726 -1.1 1.4 Osteopenia Total Hip (Right) 0.891 -0.4 1.9 Normal Total Hip Mean 0.885 -0.5 1.9 Normal World Health Organization criteria for BMD impression classify patients as: Normal (T-score at or above -1.0), Osteopenia (T-score between -1.0 and -2.5), or Osteoporosis (T-score at or below -2.5). 10-year Fracture Risk(1): Major Osteoporotic Fracture 21% Hip Fracture 7.0% Reported Risk Factors: [place] (), Neck BMD=0.646, BMI=31.2, glucocorticoids (1) FRAX(R) Version 3.08. Fracture probability calculated for an untreated patient. Fracture probability may be lower if the patient has received treatment. Clinical Information Provided by Patient: Has taken Glucocorticoids Has used the following medications: Calcium Patient maximum height was 62 Menopause Age: 44 No regular weight bearing exercise Drinks caffeinated beverages Onset of menses at age 11 Number of children 4 Impression: The patient has low bone mass, based on the Left Femoral Neck T-score. The patient has an estimated ten-year risk of hip fracture of 7% and an estimated ten-year risk of major fracture of 21%, based on the WHO FRAX algorithm. The patient has risk factors, including: history of glucocorticoid therapy. Discussion: BONE DENSITY IS LOW AT ONE OR MORE SKELETAL SITES. THE PATIENT'S BMD AND CLINICAL RISK FACTORS CONTRIBUTE TO THIS PATIENT'S HIGH RISK OF FRACTURE. This patient's lowest T-score is low at one or more skeletal sites. It meets the World Health Organization's (WHO) criteria for ?low bone mass? (T-score between -1.0 and -2.5). The patient's 10-year risk of hip fracture and 10 year risk of a major osteoporotic fracture as calculated by FRAX exceeds the threshold where pharmacological therapy is recommended by the National Osteoporosis Foundation (NOF). However, all treatment decisions require clinical judgment and consideration of individual patient factors, including patient preferences, comorbidities, previous drug use, risk factors not captured in the FRAX model (e.g., frailty, falls, vitamin D deficiency, increased bone turnover, interval significant decline in bone density) and possible under or overestimation of fracture risk by FRAX. The patient should follow a healthful lifestyle (good nutrition with adequate calcium and vitamin D, and appropriate weight-bearing exercise). Follow-Up: Consider a repeat BMD and Vertebral Fracture Assessment (VFA) exam in 2 years or sooner if medically necessary, to reassess this patient's status. Reported by: JEANE on 05/29/2024 9:06:00 AM. Reviewed, dictated and finalized at location [facility]ARCIA
== END 2024-05-29 08:11 | disposition home or self-care (01) ==
LOC: ANHIMG 08:12
PROVIDERS: PCP Family Medicine; Visit Provider Internal Medicine Hematology & Oncology
DX: M85.89 Other specified disorders of bone density and structure, multiple sites (principal); C50.412 Malignant neoplasm of upper-outer quadrant of left female breast; Z17.0 Estrogen receptor positive status [ER+]; Z78.0 Asymptomatic menopausal state; Z13.820 Encounter for screening for osteoporosis
CPT/HCPCS: 77080

== ENCOUNTER 2024-07-10 12:42 | Outpatient (CLI) | payer OTHER, SELFPAY ==
--- NOTE | ~2024-07-10 | MM_ITS ---
EXAMINATION: MM screening dmitri BI w rosario HISTORY: Screening mammogram TECHNIQUE: Craniocaudal and mediolateral oblique 3-D tomosynthesis images were obtained and synthetic 2-D images were generated. CAD analysis was submitted and interpreted. COMPARISON: 07/24/2023 diagnostic bilateral mammogram and limited left breast ultrasound 12/12/2022 diagnostic left mammogram and Limited left breast ultrasound Serial imaging examinations dating back to 01/17/2022 bilateral screening mammogram BREAST PARENCHYMAL COMPOSITION: There are scattered areas of fibroglandular density. FINDINGS: Asymmetric opacity in the mid to posterior upper outer left breast has diminished from appr oximately 18 x 37 mm to 1.15 x 26.6 mm since 07/24/2023. There is some skin thickening and mild interv al increased stromal density on the left likely related to radiotherapy. There is no evidence of suspicious mass, calcification, or new architectural distortion to suggest ma lignancy in either breast. There has been no suspicious interval change. IMPRESSION: 1. Status post left radiotherapy for breast malignancy. No mammographic evidence of malignancy. 2. Recommend routine screening mammography in one year. BI-RADS Category 2: Benign finding(s). Reviewed, dictated and finalized at location A. [employer]ER IMPRESSION: 1. Status post left radiotherapy for breast malignancy. No mammographic evidenc e of malignancy. 2. Recommend routine screening mammography in one year. BI-RADS Category 2: Benign finding(s).
== END 2024-07-10 12:43 | disposition home or self-care (01) ==
LOC: ANHIMG 12:44
PROVIDERS: PCP Family Medicine; Visit Provider Internal Medicine Hematology & Oncology
DX: Z12.31 Encounter for screening mammogram for malignant neoplasm of breast (principal); Z92.3 Personal history of irradiation
CPT/HCPCS: 77063; 77067

== ENCOUNTER 2024-07-10 12:58 | Outpatient (CLI) | payer OTHER, SELFPAY ==
[2024-07-10 13:09] LABS: Basophils Absolute Auto 0.1 K/mm3 (0.0-0.1); Basophils Percent Auto 0.8 % (0.2-1.2); Eosinophils Absolute Auto 0.2 K/mm3 (0-0.3); Eosinophils Percent Auto 1.9 % (0-4.4); Hematocrit 43.2 % (37.0-47.0); Hemoglobin 14.2 g/dL (12.0-15.0); Immature Granulocyte Absolute 0.02 K/mm3 (0.00-0.031); Immature Granulocyte Percent A 0.2 % (0-0.5); Lymphocytes Absolute Auto 4.64 K/mm3 (0.9-3.2); Lymphocytes Percent Auto 44.9 % (18.3-44.2); Mean Corpuscular HGB Conc 32.9 g/dl (32-36); Mean Corpuscular Hemoglobin 28.6 pg (26-34); Mean Corpuscular Volume 86.9 fl (80-100); Mean Platelet Volume 10.7 fl (7.4-10.4); Monocytes Absolute Auto 0.8 K/mm3 (0.1-0.6); Monocytes Percent Auto 7.7 % (2.6-8.5); Neutrophils Absolute Auto 4.6 K/mm3 (1.3-6.7); Neutrophils Percent Auto 44.5 % (45.5-73.1); Platelet Count Result 365 k/mm3 (150-375); Red Blood Count 4.97 M/mm3 (4.2-5.4); Red Cell Distribution Width 13.6 % (11.5-14.5); White Blood Count 10.3 K/mm3 (4.5-10.0)
[2024-07-10 16:21] LABS: Anion Gap 5 mmol/L (4-12); Blood Urea Nitrogen 25 mg/dL (7-17); Calcium 10.1 mg/dL (8.4-10.2); Carbon Dioxide 26 mmol/L (22-30); Chloride 109 mmol/L (98-107); Estimated Glomerular Filt Rate 39; Glucose 130 mg/dL (65-110); Sodium 140 mmol/L (137-145)
[2024-07-10 16:48] LABS: Vitamin D 25 Hydroxy 55.6 ng/mL
[2024-07-11 11:14] LABS: CA 15-3 14 U/mL (<32)
== END 2024-07-10 12:59 | disposition home or self-care (01) ==
LOC: ANHLAB 12:58
PROVIDERS: PCP Family Medicine; Visit Provider Internal Medicine Hematology & Oncology
DX: C50.412 Malignant neoplasm of upper-outer quadrant of left female breast (principal); Z17.0 Estrogen receptor positive status [ER+]
CPT/HCPCS: 36415; 80048; 82306; 85025; 86300

== ENCOUNTER 2024-07-23 08:23 | Outpatient (CLI) | payer OTHER, SELFPAY ==
[2024-07-23 09:10] LABS: Add Urine Microscopic? YES; Appearance Urine Cloudy (Clear); Bacteria Urine Rare /hpf; Bilirubin Urine Negative (Negative); Blood Urine Negative (Negative); Calcium Oxalate Crystals Urine Present /hpf; Color Urine Yellow (Yellow); Glucose Urine UA Negative (Negative); Ketones Urine Negative (Negative); Leukocyte Esterase Ur 2+ LEU/UL (Negative); Need Manual Microscopic Reviewed; Nitrate Urine Negative (Negative); Non Pathogenic Casts 0-2; Protein Urine Negative (Negative); Specific Grav Ur 1.017 (1.001-1.035); Squamous Epithelial Cell Urine Occasional /hpf (Few); Urobilinogen Urine 0.2 mg/dL (<2.0); WBC Urine 51-100 /hpf (0-3); pH Urine 5.5 (5.0-9.0)
[2024-07-23 09:12] LABS: Amorphous Sediment Urine Few
--- OUTSIDE RECORDS SUMMARY | 2024-07-30 01:35 | XMS_ITS | Clinical Summary ---
Author Organization [facility] [address] Address [address] [place] [address] Care Team Providers Care Computer Systems Administrator Name Role Phone Deniz Lujan MD Primary Care Provider Allergies No known active allergies Medications apixaban (ELIQUIS) 5 mg tabletIndications:Ve nous Thrombosis Take 1 tablet (5 mg total) by mouth every 12 (twelve) hours 60 tablet 3 Active amLODIPine (NORVASC) 10 mg tablet Take 1 tablet (10 mg total) by mouth daily 30 tablet 3 Active carvediloL (COREG) 12.5 mg tablet Take 1 tablet (12.5 mg total) by mouth 2 (two) times a day with meals 60 tablet 3 Active anastrozole (ARIMIDEX) 1 mg tablet Take 1 tablet (1 mg total) by mouth daily 3 Active aspirin 81 mg enteric coated tablet Take 1 tablet (81 mg total) by mouth daily Active benzonatate (TESSALON) 100 mg capsule TAKE 1 CAPSULE BY MOUTH THREE TIMES A DAY NEEDED FOR COUGH 3 Active simvastatin (ZOCOR) 20 mg tablet Take 1 tablet (20 mg total) by mouth nightly 30 tablet 3 Active fenofibrate nanocrystallized (TRICOR) 145 mg tablet Take 1 tablet (145 mg total) by mouth daily 30 tablet 3 Active metFORMIN (GLUCOPHAGE) 500 mg tablet Take 1 tablet (500 mg total) by mouth daily 30 tablet 3 Active gabapentin (NEURONTIN) 300 mg capsule Take 1 capsule (300 mg total) by mouth 3 (three) times a day 90 capsule 3 Active Active Problems Problem Noted Date Diagnosed Date Dizziness 11/20/2022 Social History Tobacco Use Types Packs/Day Years Used Date Smoking Tobacco: Never Passive Smoke Exposure: Past Smokeless Tobacco: Never Tobacco Cessation:Counseling Given: No Social Connection and Isolat ion Panel [NHANES] Answer Date Recorded In a typical week, how many times do you talk on the phone with family, friends, or neighbors? More than three times a week 11/30/2022 How often do you get togethe r with friends or relatives? More than three times a week 11/30/2022 How often do you attend chur ch or orthodox services? More than 4 times per year 11/30/2022 Do you belong to any clubs o r organizations such as restorationist groups, unions, fraternal or athletic groups, or school groups? Yes 11/30/2022 How often do you attend meet ings of the clubs or organizations you belong to? More than 4 times per year 11/30/2022 Are you , , di vorced, , never , or living with a partner? 11/30/2022 Overall Financial Resource Strain (CARDIA) Answe r Date Recorded How hard is it for you to pa y for the very basics like food, housing, medical care, and heating? Not hard at all 11/30/2022 Hunger Vital Sign Answer Date Recorded Within the past 12 months, y ou worried that your food would run out before you got the money to buy more. Never true 12/01/19 23 Within the past 12 months, t he food you bought just didn't last and you didn't have money to get more. Never true 11/30/2022 PRAPARE - Transportation Answer Date Re corded In the past 12 months, has l ack of transportation kept you from medical appointments or from getting medications? No 11/06 In the past 12 months, has l ack of transportation kept you from meetings, work, or from getting things needed for daily living? No 11/30/2022 Housing Stability Vital Sign Answer Jaspal e Recorded In the last 12 months, was t here a time when you were not able to pay the mortgage or rent on time? No 11/30/2022 In the last 12 months, how many places have you lived? 1 11/30/2022 Unstable Housing in the Last Year Not on file 11/30/2022 Personal Safety Answer Date Recorded Have you ever been in or are you currently in a harmful physical or emotional relationship or is someone making you feel afraid or unsafe? 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 OFFICER Gender Identity Not on file Sexual Orientation Not on file Obstetrics History Last Filed Vital Signs Vital Sign Reading Time Taken Comments Blood Pressure 143/88 11/27/2022 8:27 PM CDT Pulse 83 11/27/2022 8:27 PM CDT Temperature 36.3 ??C (97.3 ??F) 11/27/2022 8:27 PM CD T Respiratory Rate 16 11/27/2022 6:10 PM CDT Oxygen Saturation 96% 11/27/2022 8:27 PM CDT Inhaled Oxygen Concentration - - Weight 74.3 kg (163 lb 11.2 oz) 11/21/2022 3:20 AM CDT Height 154.9 cm (5' 0.98 ) 11/21/2022 3:20 AM CD T Body Mass Index 30.95 11/21/2022 3:20 AM CDT Plan of Treatment Health Maintenance Due Date Last Done Comments Depression Screening 1940 Osteoporosis Screening-Bone Density Scan 1940 DTaP/Tdap/Td Vaccine (1 - Tdap) 1950 Hepatitis B Screening 1957 Well Visit 65+ 2004 Zoster Vaccine (1 of 2) 12/28/2017 11/02/2017 Pneumococcal vaccine 65+ (2 of 2 - PCV) 11/02/2018 11/02/2017 Fall Risk Assessment 11/29/2023 11/28/2022 Covid-19 Vaccine (4 - 2023-2 5 season) 2024 06/26/2021, 09/22/2020, 09/01/2020 Influenza Vaccine (#1) 2024 , 03/19/2020, 04/05/2018, Additional history exists Insurance [id number] [place] [id number] [place] [address] HEALTHCARE Advance Directives For more information, please contact: [phone] * Full Code (Latest Code Status on File) Date Activated Date Inactivated Comments 11/20/2022 6:25 PM 11/28/2022 7:17 PM Care Teams Computer Systems Administrator Relationship Specialty Start Date End Date Deniz Lujan MD [address] [place] [address] PCP - General Family Medicine 01/07/17
--- OUTSIDE RECORDS SUMMARY | 2024-07-30 01:35 | XMS_ITS | Clinical Summary ---
Author Organization [facility] Remi tao Alejandro Address [address] [place] [address] Care Team Providers Care Epic Cadence Specialists Name Role Phone Deniz Lujan MD Primary Care Provider [phone] Allergies No known active allergies Medications gabapentin (NEURONTIN) 300 mg capsule Take 300 mg by mouth 3 times daily. Active fenofibrate nanocrystallized (TRICOR) 145 mg tablet Take 145 mg by mouth daily. Active metFORMIN (GLUCOPHAGE XR) 500 mg Extended Release 24 hour tablet Take 500 mg by mouth 2 times daily. Active simvastatin (ZOCOR) 20 mg tablet Take 20 mg by mouth daily with supper. Active apixaban (Eliquis) 5 mg tablet Take by mouth 2 times daily. Active carvediloL (COREG) 6.25 mg tablet Take 6.25 mg by mouth 2 times daily with meals. Active tamoxifen (NOLVADEX) 20 mg tablet Take 1 Tablet (20 mg) by mouth daily. 90 Tablet 4 07/22/19 25 Active tamoxifen (NOLVADEX) 20 mg tablet Take 1 Tablet (20 mg) by mouth daily. 90 Tablet 2 07/22/19 25 Active anastrozole (Arimidex) 1 mg tablet Take 1 Tablet (1 mg) by mouth daily. 90 Tablet 3 06/25/20 22 025 Discontinu ed(Alterna te therapy prescribed ) tamoxifen (NOLVADEX) 20 mg tablet Take 1 Tablet (20 mg) by mouth daily. 90 Tablet 2 07/22/19 25 025 Discontinu ed(Reorder ) Active Problems Problem Noted Date Diagnosed Date Malignant neoplasm of upper- outer quadrant of left breast in female, estrogen receptor positive 05/11/2022 Encounters Date Type Department Care Team Description 07/29/2024 Telephone [facility] Oncology and Hematology - [address] [place] [id number] Thomas Bartholomew MD Medication Problem 07/22/2024 11:45 AM INCOME TAX CONSULTANT Office Visit [facility] Oncology and Hematology - [place] [address] [place] [id number] Thomas Bartholomew MD Malignant neoplasm of upper-outer quadrant of left breast in female, estrogen receptor positive (CMS/HCC) (Primary Dx) 07/17/2024 Orders Only [facility] Oncology and Hematology - [place] [address] [place] [id number] Thomas Bartholomew MD 07/16/2024 Orders Only [facility] Oncology and Hematology - [place] [address] [place] [id number] Thomas Bartholomew MD 06/02/2024 Orders Only [facility] Oncology and Hematology - [address] [place] [id number] Dafne Owens FNP 05/27/2024 Orders Only [facility] Oncology and Hematology - [address] [place] [address] Thomas Bartholomew MD Osteopenia of multiple sites (Primary Dx) from Last 3 Months Social History Tobacco Use Types Packs/Day Years Used Date Smoking Tobacco: Never Smokeless Tobacco: Never Tobacco Cessation:Counseling Given: Not Answered Comments Unknown Sex and Gender Information Value Date Recorded Sex Assigned at Not on file Legal Sex Female 10:37 PM CDT Gender Identity Not on file Sexual Orientation Not on file Last Filed Vital Signs Vital Sign Reading Time Taken Comments Blood Pressure 131/81 07/22/2024 11:47 AM INCOME TAX CONSULTANT Pulse 80 07/22/2024 11:47 AM INCOME TAX CONSULTANT Temperature 36.5 ??C (97.7 ??F) 07/22/2024 11:[address] Respiratory Rate 20 07/22/2024 11:47 AM INCOME TAX CONSULTANT Oxygen Saturation 97% 07/22/2024 11:47 AM INCOME TAX CONSULTANT Inhaled Oxygen Concentration - - Weight 75.3 kg (166 lb) 07/22/2024 11:47 AM INCOME TAX CONSULTANT Height 154.9 cm (5' 1 ) 05/11/2022 12:03 PM CDT Body Mass Index 31.37 05/11/2022 12:03 PM CDT Plan of Treatment Upcoming Encounters Date Type Department Care Team (Late st Contact Info) Description 11/18/2024 11:30 AM CDT Office Visit [facility] Oncology and Hematology - [place] [address] [facility] [address] [place] [address] Thomas Bartholomew MD [address] [facility] [address] [place] [address] Health Maintenance Due Date Last Done Comments DTAP/TDAP/TD VACCINES (1 - Tdap) 1959 PNEUMOCOCCAL VACCINE 65+ YEARS (1 of 1 - PCV) 07/02/19 89 ZOSTER VACCINE (1 of 2) 1989 RSV VACCINE (60+ or ) (1 - 1-dose 75+ series) 2014 INFLUENZA VACCINE (#1) 2024 Medicare Advantage (NH) Prev entative Visit/Annual Wellness Visit 07/08/2024 OSTEOPOROSIS SCREENING Completed 05/29/2024 Procedures Procedure Name Priority Date/Time Associated Diagnosis Comments MAMMO SCREENING BILAT Routine 07/10/2024 1:09 PM INCOME TAX CONSULTANT CANCER ANTIGEN 15-3 Routine 07/10/2024 1 2:07 PM INCOME TAX CONSULTANT CBC WITH DIFFERENTIAL Routine 07/10/2024 11:44 AM INCOME TAX CONSULTANT BASIC METABOLIC PANEL Routine 07/10/2024 11:05 AM INCOME TAX CONSULTANT VITAMIN D 25 HYDROXY Routine 07/10/2024 10:29 AM INCOME TAX CONSULTANT XR DEXA BONE DENSITY AXIAL 1 OR MORE SITES Routine 05/29/2024 10:48 AM INCOME TAX CONSULTANT from Last 3 Months Results * MAMMO SCREENING BILAT (07/10/2024 1:09 PM INCOME TAX CONSULTANT) Anatomical Region Laterality Modality Breast Bilateral Other Thomas Bartholomew MD MAMMO ORDERABLES Final Result * CANCER ANTIGEN 15-3 (07/10/2024 12:07 PM INCOME TAX CONSULTANT) Blood Thomas Bartholomew MD CHEMISTRY ORDERABLES Final Resu lt * CBC WITH DIFFERENTIAL (07/10/2024 11:44 AM INCOME TAX CONSULTANT) Blood Thomas Bartholomew MD HEMATOLOGY ORDERABLES Final Res ult * BASIC METABOLIC PANEL (07/10/2024 11:05 AM INCOME TAX CONSULTANT) Blood Thomas Bartholomew MD CHEMISTRY ORDERABLES Final Resu lt * VITAMIN D 25 HYDROXY (07/10/2024 10:29 AM INCOME TAX CONSULTANT) Blood Thomas Bartholomew MD CHEMISTRY ORDERABLES Final Resu lt * XR DEXA BONE DENSITY AXIAL 1 OR MORE SITES (05/29/2024 10:48 AM INCOME TAX CONSULTANT) Anatomical Region Laterality Modality Other Result [facility] Dafne Owens SHIRT FOLDING MACHINE OPERATOR DIAGNOSTIC IMAGING ORDERABLES Final Result from Last 3 Months Insurance [facility] MCR Care Teams Epic Cadence Specialists Relationship Specialty Start Date End Date Deniz Lujan MD [address] [facility] [address] [place] [address] PCP - General Family Practice 12/18/23
--- OUTSIDE RECORDS SUMMARY | 2024-07-30 01:35 | XMS_ITS | Referral Summary ---
Author Organization [facility] [address] Address [address] [place] [address] Care Team Providers Care Jacquard Lace Weaver Name Role Phone Deniz Lujan MD Primary [...] often do you attend chur ch or uatsdin services? 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 Advance Directives For more information, please contact: [phone] * Full Code (Latest Code Status on File) Date Activated Date Inactivated Comments 11/20/2022 6:25 PM 11/28/2022 7:17 PM Care Teams Jacquard Lace Weaver Relationship Specialty Start Date End Date Deniz Lujan MD [address] [facility] [address] [place] [address] PCP - General Family Medicine 01/07/17
--- OUTSIDE RECORDS SUMMARY | 2024-07-30 01:35 | XMS_ITS | Continuity of Care Document ---
Author Organization [facility] Address [address] [place] [address] Phone Care Team Providers Care Ad Clerk Name Role Phone Raina Kenney Unavailable Unavailable [...] Copied on Encounter Office/outpat ient Visit, Est Merged with [facility], [address], [place], [place], [id number], [place] tel:[phone] [facility] No Information Sep-0 7-201 0 Anne Marie Paris. [address] , [address], [place], [address], [place]. tel:[phone] Merged with [facility], [address], [place], [place], [id number], [place] tel:[phone] [facility] No Information Sep-1 5-200 9 [facility] [address] [facility], [address], [place], [place], [address], [place]. tel:[phone] Referring Provider: Raina Cain, [address], [place], [address]. tel:[phone] sulting Provider: Julianne Burton, [address] [facility], [place], [place], [facility]. tel:[phone] [facility], [address], [place], [place], [id number], [place] tel:[phone] [facility] No Information Sep-0 1-200 9 Anne Marie Paris. [address] [facility] , [address], [place], [address], [place]. tel:[phone] Office/outpat ient Visit, [facility], [address], [place], [place], [address], [place] tel:[phone] [facility] No Information 8 Anne Marie Paris. [address] , [address], [place], [address], [place]. tel:[phone] Merged with [facility], [address] [place] [address] [address], [place], [place], [address], [place] tel:[phone] [facility] No Information 8 Katharina Kessler. [address] , [address], [place], [place], [facility], [place]. tel:[phone] Merged with [facility], [address] [place] [address] [address], [place], [place], [id number], [place] tel:[phone] [facility] No Information 200 7 Katharina Kessler. [address] , [address], [place], [place], [facility], [place]. tel:[phone] Family History Family Member Type Diagnosis Age At Onset No Information Payers Payer name Insurance type Covered democrat ID Mahesha alex(s) [place] [id number] Social History Type Description Quantity Date Captured [...]
--- OUTSIDE RECORDS SUMMARY | 2024-07-30 01:35 | XMS_ITS | Encounter Summary ---
Author Organization [facility] [employer] Address [address] [place] [address] Care Team Providers Care Hr Coordinator Name Role Phone Deniz Lujan MD Primary Care Provider [phone] Reason for Visit * Reason Comments Cancer Follow Up Encounter Details Date Type Department Care Team (Late st Contact Info) Description 07/22/2024 11:45 AM SCHOOL BUS DRIVER/CUSTODIAN Office Visit [facility] Oncology and Hematology - [place] [address] [facility] [address] [place] [address] Thomas Bartholomew MD [address] [facility] [address] [place] [address] Malignant neoplasm of upper-outer quadrant of left breast in female, estrogen receptor positive (CMS/HCC) (Primary Dx) Social History Tobacco Use Types Packs/Day Years Used Date Smoking Tobacco: Never Smokeless Tobacco: Never Tobacco Cessation:Counseling Given: Not Answered Comments Unknown Sex and Gender Information Value Date Recorded Sex Assigned at Not on file Legal Sex Female 10:37 PM CDT Gender Identity Not on file Sexual Orientation Not on file documented as of this encounter Last Filed Vital Signs Vital Sign Reading Time Taken Comments Blood Pressure 131/81 07/22/2024 11:47 AM SCHOOL BUS DRIVER/CUSTODIAN Pulse 80 07/22/2024 11:47 AM SCHOOL BUS DRIVER/CUSTODIAN Temperature 36.5 ??C (97.7 ??F) 07/22/2024 11:[address] Respiratory Rate 20 07/22/2024 11:47 AM SCHOOL BUS DRIVER/CUSTODIAN Oxygen Saturation 97% 07/22/2024 11:47 AM SCHOOL BUS DRIVER/CUSTODIAN Inhaled Oxygen Concentration - - Weight 75.3 kg (166 lb) 07/22/2024 11:47 AM SCHOOL BUS DRIVER/CUSTODIAN Height - - Body Mass Index 31.37 05/11/2022 12:03 PM CDT documented in this encounter Progress Notes * Thomas Bartholomew MD - 07/22/2024 11:54 AM CST HEMATOLOGY / ONCOLOGY PROGRESS NOTE Patient Identification: Name: Odalis Aparicio Age: 84 y.o. 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 CURRENT TREATMENT Arimidex 1 mg daily started June 25, 2022 TREATMENT HISTORY Radiation therapy to the left breast completed June 16, 2022 SUBJECTIVE Patient came to the office for follow-up visit. She has been taking anastrozole and tolerating it well. Denies any new lumps bumps or lymphadenopathy. No other new complaints. Review of system Constitutional: Patient did not mention fevers, sweats, weight and appetite stable, denies any tiredness and fatigue HEENT: Patient did not mention sinus congestion, hearing or vision problems Respiratory: Patient did not mention cough, dyspnea, wheeze Cardiovascular: Patient did not mention chest pain, exertional chest pressure/discomfort, nausea, syncope, shortness of breath GI: Patient did not mention constipation, diarrhea, dsyphagia, reflux symptoms, vomiting, melena : Patient did not mention dysuria, frequency, incontinence, urgency Integumentary system: no lymphadenopathy, sweats, flushing Musculoskeletal: Patient not mention: myalgia, left ankle discomfort Neurological: Patient did not mention blurry or disturbed vision, numbness/weakness, dizziness Skin: No lumps, bumps or rashes. 12 point review of system was reviewed Objective: Vital signs in last 24 hours: As per nursing note Exam: General appearance: alert, cooperative, no distress, appears stated age Head: normocephalic, without obvious abnormality, atraumatic Eyes: conjunctivae/corneas clear, EOM's intact Ears: normal external ear canals AU Nose: Nares normal. Septum midline. Mucosa normal. No drainage or sinus tenderness Throat: Lips, mucosa, and tongue normal. Teeth and gums normal Neck: supple, symmetrical, trachea midline. Lungs: clear to auscultation bilaterally Heart: regular rate and rhythm, S1, S2 normal, no murmur, click, rub or gallop Abdomen: soft, non-tender. Bowel sounds normal. No masses, No organomegaly Extremities: extremities normal, atraumatic, no cyanosis or edema Skin: Skin color, texture, turgor normal. No rashes or lesions Lymph nodes: No lymphadenopathy Neuro: No obvious focal deficit Bilateral breast examination showed postoperative and radiation changes in the left breast without any masses and lymphadenopathy. 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 Radiation therapy to the left breast completed June 16, 2022. Patient started anastrozole on June 25, 2022. There is no evidence of relapse of disease on my examination. Labs including tumor marker stable. Patient had bilateral screening mammogram done on July 10, 2024 showed no evidence of disease. Due to osteopenia I will discontinue anastrozole and will start her on tamoxifen now. Follow-up in 4 months. Osteopenia. Bone density was performed on May 29, 2024 showed osteopenia. We will discontinue anastrozole and will start tamoxifen. Vitamin D level remains normal. She is not taking any furthervitamin D supplement. Type 2 diabetes. Stable on metformin. Renal insufficiency. Stable. 07/22/2024 Thomas Bartholomew MD OL BUS DRIVER/CUSTODIAN documented in this encounter Plan of Treatment Upcoming Encounters Date Type Department Care Team (Late st Contact Info) Description 11/18/2024 11:30 AM CDT Office Visit [facility] Oncology and Hematology [facility] [address] [facility] [address] [place] [id number] Thomas Bartholomew MD [address] [facility] [address] [place] [address] Scheduled Orders Name Type Priority Associated Diagnoses Orde r Schedule CANCER ANTIGEN 15-3 Lab Routine Malignant neoplasm of upper-outer quadrant of left breast in female, estrogen receptor positive (CMS/HCC) Expected: 11/11/2024, Expires: 07/22/2025 CBC WITH DIFFERENTIAL Lab Stat Malignant neoplasm of upper-outer quadrant of left breast in female, estrogen receptor positive (CMS/HCC) Expected: 11/11/2024, Expires: 07/22/2025 COMPREHENSIVE METABOLIC PANEL Lab Stat Malignant neoplasm of upper-outer quadrant of left breast in female, estrogen receptor positive (CMS/HCC) Expected: 11/11/2024, Expires: 07/22/2025 documented as of this encounter Visit Diagnoses Diagnosis Malignant neoplasm of upper-outer quadrant of left breast in female, estrogen receptor positive (CMS/HCC)- Primary documented in this encounter Care Teams Hr Coordinator Relationship Specialty Start Date End Date Deniz Lujan MD [address] [facility] [address] [place] [address] PCP - General Family Practice 12/18/23 documented as of this encounter
--- OUTSIDE RECORDS SUMMARY | 2024-07-30 01:35 | XMS_ITS | Clinical Summary ---
Author Organization [facility] Address [address] [place] [address]. [place], [place] [address] [place] [address] Care Team Providers Care Heater Installer Name Role Phone Unavailable Primary Care Provider Unavailabl e Social History Tobacco Use Types Packs/Day Years Used Date Smoking Tobacco: Never Assessed Comments Unknown Sex and Gender Information Value Date Recorded Sex Assigned at Not on file Legal Sex Female 7:06 PM CDT Gender Identity Not on file Sexual Orientation Not on file Plan of Treatment Health Maintenance Due Date Last Done Comments DTaP, Tdap and Td Vaccines ( 1 - Tdap) 1958 Zoster Vaccines (1 of 2) 1989 Dexa Scan (General) 2004 Pneumococcal Vaccine: 65+ Ye ars (1 of 1 - PCV) 2004 RSV Immunization or 60+ Years (1 - 1-dose 75+ series) 2014 COVID-19 Vaccine (2023-2 5 season) 2024 Influenza Adult (#1) 2024 Meningococcal Vaccine Aged Out No sergei john eligible based on patient's age to complete this topic RSV Immunizations Under 20 Months Aged Out No longer eligible based on patient's age to complete this topic
== END 2024-07-23 08:24 | disposition home or self-care (01) ==
PROVIDERS: PCP Family Medicine; Visit Provider Physician Assistant Medical
DX: R35.0 Frequency of micturition (principal)
CPT/HCPCS: 81001; 87086

== ENCOUNTER 2024-09-02 11:02 | Outpatient (CLI) | payer OTHER, SELFPAY ==
--- NOTE | ~2024-09-02 | XR_ITS ---
HISTORY: M25.551 - Pain in right hip, NO INJURY COMPARISON: TECHNIQUE: 2 views of the right hip along with an AP view of the pelvis FINDINGS: No acute fracture or dislocation is identified. Significant degenerative disease is identified within the right femoral head with osteophyte formatio n. 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 Degenerative disease within the lower lumbar spine. Fecal stasis within the colon. Air within the rectum. Normal mineralization for age. IMPRESSION: Degenerative disease without acute fracture or dislocation Reviewed, dictated and finalized at location A. FILL GAS TECHNICIAN
--- OUTSIDE RECORDS SUMMARY | 2024-09-02 12:51 | XMS_ITS | Clinical Summary ---
Author Organization [facility] Address [address] [place] [address] Care Team Providers Care Brake Holder Name Role Phone Unavailable Primary Care Provider [...] season) 2024 Influenza Adult (#1) 2024 Meningococcal B Vaccine Aged Out No l onger eligible based on patient's age to complete this topic Meningococcal Vaccine Aged Out No sergei john eligible based on patient's age to complete this topic RSV Immunizations Under 20 Months Aged Out No longer eligible based on patient's age to complete this topic
--- OUTSIDE RECORDS SUMMARY | 2024-09-02 12:51 | XMS_ITS | Clinical Summary ---
Author Organization [facility] [address] Address [address] [place] [address] Care Team Providers Care Continuous Process Coffee Roaster Name Role Phone Deniz Lujan MD Primary [...] often do you attend chur ch or episcopalian services? 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 Gender Identity Not on file Sexual Orientation Not on file Obstetrics History Last Filed Vital Signs Vital Sign Reading Time Taken Comments Blood Pressure 143/88 11/27/2022 8:27 PM CDT Pulse 83 11/27/2022 8:27 PM CDT Temperature 36.3 C (97.3 F) 11/27/2022 8:27 PM CDT Respiratory Rate 16 11/27/2022 6:10 PM CDT [...] , 03/19/2020, 04/05/2018, Additional history exists Insurance [facility] [id number] [place] [address] HEALTHCARE Advance Directives For more information, please contact: [phone] * Full Code (Latest Code Status on File) Date Activated Date Inactivated Comments 11/20/2022 6:25 PM 11/28/2022 7:17 PM Care Teams Continuous Process Coffee Roaster Relationship Specialty Start Date End Date Deniz Lujan MD [address] [facility] 120 [place] [address] PCP - General Family Medicine 01/07/17
--- OUTSIDE RECORDS SUMMARY | 2024-09-02 12:51 | XMS_ITS | Clinical Summary ---
Author Organization [facility] Remi tao Alejandro Address [address] [place] [address] Care Team Providers Care Paraoptometric Name Role Phone Deniz Lujan MD Primary Care Provider [phone] Allergies No known active allergies Medications gabapentin [...] mg) by mouth daily. 90 Tablet 4 5 Active tamoxifen (NOLVADEX) 20 mg tablet Take 1 Tablet (20 mg) by mouth daily. 90 Tablet 2 5 Active Active Problems Problem Noted Date Diagnosed Date Malignant neoplasm of upper- outer quadrant of left breast in female, estrogen receptor positive 05/11/2022 Encounters Date Type Department Care Team Description 08/25/2024 External Device Data STL ABSTRACTION Provider, Abstract 08/04/2024 External Device Data STL ABSTRACTION Provider, Abstract 07/29/2024 Telephone [facility] Oncology and [facility] [address] [place] [address] Thomas Bartholomew MD Medication Problem 07/22/2024 11:45 AM EGG BREAKING MACHINE OPERATOR Office Visit [facility] Oncology and Hematology - Jose [address] [place] [address] Thomas Bartholomew MD Malignant neoplasm of upper-outer quadrant of left breast in female, estrogen receptor positive (CMS/HCC) (Primary Dx) 07/17/2024 Orders Only [facility] Oncology and Hematology - Jose [address] [place] [address] Thomas Bartholomew MD 07/16/2024 Orders Only [facility] Oncology and Hematology - [address] [place] [id number] Thomas Bartholomew MD 06/02/2024 Orders Only [facility] Oncology and Hematology - [address] [place] [address] Dafne Owens FNP from Last 3 Months Social History Tobacco [...] Comments Blood Pressure 131/81 07/22/2024 11:47 AM EGG BREAKING MACHINE OPERATOR Pulse 80 07/22/2024 11:47 AM EGG BREAKING MACHINE OPERATOR Temperature 36.5 C (97.7 F) 07/22/2024 11:47 AM EGG BREAKING MACHINE OPERATOR Respiratory Rate 20 07/22/2024 11:47 AM EGG BREAKING MACHINE OPERATOR Oxygen Saturation 97% 07/22/2024 11:47 AM EGG BREAKING MACHINE OPERATOR Inhaled Oxygen Concentration - - Weight 75.3 kg (166 lb) 07/22/2024 11:47 AM EGG BREAKING MACHINE OPERATOR Height 154.9 cm (5' 1 ) 05/11/2022 12:03 PM CDT Body Mass Index 31.37 05/11/2022 12:03 PM CDT Plan of Treatment Upcoming Encounters Date Type Department Care Team (Late st Contact Info) Description 11/18/2024 11:30 AM CDT Office Visit [facility] Oncology and Hematology - [address] [place] [address] Thomas Bartholomew MD [address] [facility] [address] [place] [address] Health Maintenance Due Date Last Done Comments DTAP/TDAP/TD VACCINES (1 - Tdap) 1959 PNEUMOCOCCAL VACCINE 65+ YEARS (1 of 1 - PCV) 07/02/19 89 ZOSTER VACCINE (1 of 2) 1989 RSV VACCINE (60+ or ) (1 - 1-dose 75+ series) 2014 INFLUENZA VACCINE (#1) 2024 Medicare [place]age ([place]) Prev entative Visit/Annual Wellness Visit 07/08/2024 OSTEOPOROSIS SCREENING Completed 05/29/2024 Procedures Procedure Name Priority Date/Time Associated Diagnosis Comments MAMMO SCREENING BILAT Routine 07/10/2024 1:09 PM EGG BREAKING MACHINE OPERATOR CANCER ANTIGEN 15-3 Routine 07/10/2024 1 2:07 PM EGG BREAKING MACHINE OPERATOR CBC WITH DIFFERENTIAL Routine 07/10/2024 11:44 AM EGG BREAKING MACHINE OPERATOR BASIC METABOLIC PANEL Routine 07/10/2024 11:05 AM EGG BREAKING MACHINE OPERATOR VITAMIN D 25 HYDROXY Routine 07/10/2024 10:29 AM EGG BREAKING MACHINE OPERATOR XR DEXA BONE DENSITY AXIAL 1 OR MORE SITES Routine 05/29/2024 10:48 AM EGG BREAKING MACHINE OPERATOR from Last 3 Months or Most Recently Relevant to Health Maintenance Results * MAMMO SCREENING BILAT (07/10/2024 1:09 PM EGG BREAKING MACHINE OPERATOR) Anatomical Region Laterality Modality Breast Bilateral Other us Thomas Bartholomew MD MAMMO ORDERABLES Final Result * CANCER ANTIGEN 15-3 (07/10/2024 12:07 PM EGG BREAKING MACHINE OPERATOR) Blood us Thomas Bartholomew MD CHEMISTRY ORDERABLES Final Resu lt * CBC WITH DIFFERENTIAL (07/10/2024 11:44 AM EGG BREAKING MACHINE OPERATOR) Blood us Thomas Bartholomew MD HEMATOLOGY ORDERABLES Final Res ult * BASIC METABOLIC PANEL (07/10/2024 11:05 AM EGG BREAKING MACHINE OPERATOR) Blood Thomas Bartholomew MD CHEMISTRY ORDERABLES Final Resu lt * VITAMIN D 25 HYDROXY (07/10/2024 10:29 AM EGG BREAKING MACHINE OPERATOR) Blood Thomas Bartholomew MD CHEMISTRY ORDERABLES Final Resu lt * XR DEXA BONE DENSITY AXIAL 1 OR MORE SITES (05/29/2024 10:48 AM EGG BREAKING MACHINE OPERATOR) Anatomical Region Laterality Modality Other Result [facility] Dafne Owens TRANSISTOR TESTER DIAGNOSTIC IMAGING ORDERABLES Final Result from Last 3 Months or Most Recently Relevant to Health Maintenance Insurance [facility] Address: [place] [address] Care Teams Paraoptometric Relationship Specialty Start Date End Date Deniz Lujan MD [address] [facility] 120 [place] [address] PCP - General Family Practice 12/18/23
--- OUTSIDE RECORDS SUMMARY | 2024-09-02 12:51 | XMS_ITS | Referral Summary ---
Author Organization [facility] [address] Address [address] [place] [address] Care Team Providers Care Charge Attendant Name Role Phone Deniz Lujan MD Primary [...] often do you attend chur ch or synagogue services? 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
--- OUTSIDE RECORDS SUMMARY | 2024-09-02 12:51 | XMS_ITS | Continuity of Care Document ---
Author Organization [facility] Address [address] [place] [address] Phone Care Team Providers Care Concrete Finisher Name Role Phone Raina Kenney Unavailable Unavailable [...] Copied on Encounter Office/outpat ient Visit, Est [facility], [address], [place], [place], [id number], [place] tel:[phone] [facility] No Information Sep-0 7-201 0 Anne Marie Paris. [address] , [address], [place], [address], [place]. tel:[phone] [facility], [address], [place], [place], [id number], [place] tel:[phone] [facility] No Information Sep-1 5-200 9 [facility] . [address] [facility], [address], [place], [place], [id number], [place]. tel:[phone] Referring Provider: Raina Cain, [address], [place], [address]. tel:[phone] sulting Provider: Julianne Burton, [address] [facility], [place], [place], [facility]. tel:[phone] [facility] Eye [facility], [address], [place], [place], [address], [place] tel:[phone] [facility] No Information Sep-0 1-200 9 Anne Marie Paris. [address] , [address], [place], [address], [place]. tel:[phone] Office/outpat ient Visit, [facility], [address], [place], [place], [address], [place] tel:[phone] [facility] No Information 8 Anne Marie Paris. [address] , [address], [place], [address], [place]. tel:[phone] [facility], [address] [place] [address] [address], [place], [place], [address], [place] tel:[phone] [facility] No Information 8 Katharina Kessler. [address] , [address], [place], [place], [facility], [place]. tel:[phone] [facility], [address] [place] [address] [address], [place], [place], [address], [place] tel:[phone] [facility] No Information 200 7 Katharina Kessler. [address] , [address], [place], [place], [facility], [place]. tel:[phone] Family History Family Member Type Diagnosis Age At Onset No Information Payers Payer name Insurance type Covered libertarian ID Mahesha alex(s) [place] [id number] Social History Type Description Quantity Date Captured [...]
== END 2024-09-02 11:03 | disposition home or self-care (01) ==
PROVIDERS: PCP Family Medicine; Visit Provider Student in an Organized Health Care Education/Training Program
DX: M16.11 Unilateral primary osteoarthritis, right hip (principal)
CPT/HCPCS: 73502

== ENCOUNTER 2024-09-23 08:44 | Outpatient (CLI) | payer OTHER, SELFPAY ==
--- NOTE | ~2024-09-23 | CT_ITS ---
CT Scan of the Chest without Contrast: Clinical Indication: Pulmonary nodule Technique: Contiguous sections were acquired throughout the chest without intravenous contrast. Dose reduction technique was used on this scan by utilizing automated exposure control and iterative recon struction technique. The dose-length product (DLP) was 239.03 mGy-cm. Findings: There is no evidence of any significant mediastinal, hilar or axillary lymphadenopathy. There are ath erosclerotic calcifications of the aorta and coronary arteries. There is no evidence of pleural or pericardial effusion. There is respiratory motion artifact. Probable 5 mm right lower lobe pulmonary nodule (axial image 41 ). Possible 4 mm left upper lobe pulmonary nodule (axial image 24). Images through the upper abdomen reveal no abnormalities. Impression: Suspected subcentimeter pulmonary nodules, as above. Evaluation suboptimal due to respiratory motion artifact. According to Fleischner Society criteria, for a low-risk patient, no further follow-up requ ired. For a high-risk patient, consider 12 month follow-up CT. Reviewed, dictated and finalized at location . Impression: Suspected subcentimeter pulmonary nodules, as above. Evaluation suboptimal due to respiratory motion artifact. According to Fleischner Society criteria, for a low-risk patient, no further follow-up required. For a high-risk patient, cons ider 12 month follow-up CT.
--- OUTSIDE RECORDS SUMMARY | 2024-09-23 09:20 | XMS_ITS | Clinical Summary ---
Author Organization [facility] Remi tao Alejandro Address [address] [facility] [place] [place] [address] Care Team Providers Care Organizational Psychologist Name Role Phone Deniz Lujan MD Primary Care Provider [phone] Allergies No known active allergies Medications gabapentin [...] Encounters Date Type Department Care Team Description 09/12/2024 External Device Data STL ABSTRACTION Provider, Abstract 09/11/2024 External Device Data STL ABSTRACTION Provider, Abstract 08/25/2024 External Device Data STL ABSTRACTION Provider, Abstract 08/04/2024 External Device Data STL ABSTRACTION Provider, Abstract 07/29/2024 Telephone [facility] Oncology and Hematology - Jose [address] [place] [address] Thomas Bartholomew MD Medication Problem 07/22/2024 11:45 AM SUPERVISOR CABINETMAKER Office Visit [facility] Oncology and Hematology [facility] [address] [place] [address] Thomas Bartholomew MD Malignant neoplasm of upper-outer quadrant of left breast in female, estrogen receptor positive (CMS/HCC) (Primary Dx) 07/17/2024 Orders Only [facility] Oncology and Hematology - Jose [facility] [address] [place] [address] Thomas Bartholomew MD 07/16/2024 Orders Only [facility] Oncology and Hematology - Jose [facility] [address] [place] [address] Thomas Bartholomew MD from Last 3 Months Social History Tobacco [...] Comments Blood Pressure 131/81 07/22/2024 11:47 AM SUPERVISOR CABINETMAKER Pulse 80 07/22/2024 11:47 AM SUPERVISOR CABINETMAKER Temperature 36.5 C (97.7 F) 07/22/2024 11:47 AM SUPERVISOR CABINETMAKER Respiratory Rate 20 07/22/2024 11:47 AM SUPERVISOR CABINETMAKER Oxygen Saturation 97% 07/22/2024 11:47 AM SUPERVISOR CABINETMAKER Inhaled Oxygen Concentration - - Weight 75.3 kg (166 lb) 07/22/2024 11:47 AM SUPERVISOR CABINETMAKER Height 154.9 cm (5' 1 ) 05/11/2022 12:03 PM CDT Body Mass Index 31.37 05/11/2022 12:03 PM CDT Plan of Treatment Upcoming Encounters Date Type Department Care Team (Late st Contact Info) Description 11/18/2024 11:30 AM CDT Office Visit [facility] Oncology and Hematology Jose [address] [place] [address] Thomas Bartholomew MD [facility] [address] [place] [address] Health Maintenance Due Date Last Done Comments DTAP/TDAP/TD VACCINES (1 - Tdap) 1959 PNEUMOCOCCAL VACCINE 50+ YEARS (1 of 1 - PCV) 07/02/19 89 ZOSTER VACCINE (1 of 2) 1989 RSV VACCINE (60+ or ) (1 - 1-dose 75+ series) 2014 INFLUENZA VACCINE (#1) 2024 [place] ([place]) Prev entative Visit/Annual Wellness Visit 07/08/2024 OSTEOPOROSIS SCREENING Completed 05/29/2024 Procedures Procedure Name Priority Date/Time Associated Diagnosis Comments MAMMO SCREENING BILAT Routine 07/10/2024 1:09 PM SUPERVISOR CABINETMAKER CANCER ANTIGEN 15-3 Routine 07/10/2024 1 2:07 PM SUPERVISOR CABINETMAKER CBC WITH DIFFERENTIAL Routine 07/10/2024 11:44 AM SUPERVISOR CABINETMAKER BASIC METABOLIC PANEL Routine 07/10/2024 11:05 AM SUPERVISOR CABINETMAKER VITAMIN D 25 HYDROXY Routine 07/10/2024 10:29 AM SUPERVISOR CABINETMAKER XR DEXA BONE DENSITY AXIAL 1 OR MORE SITES Routine 05/29/2024 10:48 AM SUPERVISOR CABINETMAKER from Last 3 Months or Most Recently Relevant to Health Maintenance Results * MAMMO SCREENING BILAT (07/10/2024 1:09 PM SUPERVISOR CABINETMAKER) Anatomical Region Laterality Modality Breast Bilateral Mammography Thomas Bartholomew MD MAMMO ORDERABLES Final Result * CANCER ANTIGEN 15-3 (07/10/2024 12:07 PM SUPERVISOR CABINETMAKER) Blood Thomas Bartholomew MD CHEMISTRY ORDERABLES Final Resu lt * CBC WITH DIFFERENTIAL (07/10/2024 11:44 AM SUPERVISOR CABINETMAKER) Blood Thomas Bartholomew MD HEMATOLOGY ORDERABLES Final Res ult * BASIC METABOLIC PANEL (07/10/2024 11:05 AM SUPERVISOR CABINETMAKER) Blood Thomas Bartholomew MD CHEMISTRY ORDERABLES Final Resu lt * VITAMIN D 25 HYDROXY (07/10/2024 10:29 AM SUPERVISOR CABINETMAKER) Blood Thomas Bartholomew MD CHEMISTRY ORDERABLES Final Resu lt * XR DEXA BONE DENSITY AXIAL 1 OR MORE SITES (05/29/2024 10:48 AM SUPERVISOR CABINETMAKER) Anatomical Region Laterality Modality Other Dafne Owens SAW FEEDER DIAGNOSTIC IMAGING ORDERABLES Final Result from Last 3 Months or Most Recently Relevant to Health Maintenance Insurance [facility] Address: [place] [address] Care Teams Organizational Psychologist Relationship Specialty Start Date End Date Deniz Lujan MD [address] [facility] [address] [place] [address] PCP - General Family Practice 12/18/23
--- OUTSIDE RECORDS SUMMARY | 2024-09-23 09:20 | XMS_ITS | Referral Summary ---
Author Organization [facility] [address] Address [address] [place] [address] Care Team Providers Care Gas Distribution Supervisor Name Role Phone Deniz Lujan MD Primary [...] often do you attend chur ch or lutheran services? 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
--- OUTSIDE RECORDS SUMMARY | 2024-09-23 09:20 | XMS_ITS | Continuity of Care Document ---
Author Organization [facility] Address [address] [place] [address] Phone Care Team Providers Care Package Line Operator Name Role Phone Raina Kenney Unavailable Unavailable [...] Copied on Encounter Office/outpat ient Visit, Est [facility], [address], [place], [place], [address], [place] tel:[phone] [facility] No Information Sep-0 7-201 0 Anne Marie Paris. [address] , [address], [place], [address], [place]. tel:[phone] [facility], [address], [place], [place], [address], [place] tel:[phone] [facility] No Information Sep-1 5-200 9 [facility] [employer] . [address] [facility], [address], [place], [place], [address], [place]. tel:[phone] Referring Provider: Raina Cain, [address], [place], [address]. tel:[phone] sulting Provider: Julianne Burton, [address] [facility], [place], [place], [facility]. tel:[phone] [facility] Eye [facility], [address], [place], [place], [address], [place] tel:[phone] [facility] No Information Sep-0 1-200 9 Anne Marie Paris. [address] [facility] [address] , [address], [place], [address], [place]. tel:[phone] Office/outpat ient Visit, [facility], [address], [place], [place], [address], [place] tel:[phone] [facility] No Information 8 Anne Marie Paris. [address] [facility] [address] , [address], [place], [address], [place]. tel:[phone] [facility], [address] [place] [address] [address], [place], [place], [address], [place] tel:[phone] [facility] No Information 8 Katharina Kessler. [address] [facility] [address] , [address], [place], [place], [facility], [place]. tel:[phone] [facility], [address] [place] [address] [address], [place], [place], [address], [place] tel:[phone] [facility] No Information 200 7 Katharina Kessler. [address] [facility] [address] , [address], [place], [place], [facility], [place]. tel:[phone] Family History Family Member Type Diagnosis Age At Onset No Information Payers Payer name Insurance type Covered alliance party ID Mahesha alex(s) [place] [id number] Social History Type Description Quantity Date Captured [...]
--- OUTSIDE RECORDS SUMMARY | 2024-09-23 09:20 | XMS_ITS | Clinical Summary ---
Author Organization [facility] [address] Address [address] [place] [address] Care Team Providers Care Split Leather Mosser Name Role Phone Deniz Lujan MD Primary [...] often do you attend chur ch or muslim services? 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
--- OUTSIDE RECORDS SUMMARY | 2024-09-23 09:20 | XMS_ITS | Clinical Summary ---
Author Organization [facility] Address [address] [place] [address] Care Team Providers Care Client Technical Support Associate Name Role Phone Unavailable Primary Care Provider [...]
== END 2024-09-23 08:45 | disposition home or self-care (01) ==
PROVIDERS: PCP Family Medicine; Visit Provider Family Medicine
DX: R91.8 Other nonspecific abnormal finding of lung field (principal)
CPT/HCPCS: 71250

== ENCOUNTER 2024-11-06 11:33 | Outpatient (CLI) | payer OTHER, SELFPAY ==
[2024-11-06 12:05] LABS: Basophils Absolute Auto 0.1 K/mm3 (0.0-0.1); Eosinophils Absolute Auto 0.2 K/mm3 (0-0.3); Eosinophils Percent Auto 2.2 % (0-4.4); Hematocrit 43.1 % (37.0-47.0); Hemoglobin 14.1 g/dL (12.0-15.0); Immature Granulocyte Absolute 0.01 K/mm3 (0.00-0.031); Immature Granulocyte Percent A 0.1 % (0-0.5); Lymphocytes Absolute Auto 4.23 K/mm3 (0.9-3.2); Mean Corpuscular HGB Conc 32.7 g/dl (32-36); Mean Corpuscular Hemoglobin 29.2 pg (26-34); Mean Corpuscular Volume 89.2 fl (80-100); Mean Platelet Volume 10.9 fl (7.4-10.4); Monocytes Absolute Auto 0.7 K/mm3 (0.1-0.6); Monocytes Percent Auto 7.7 % (2.6-8.5); Platelet Count Result 280 k/mm3 (150-375); Red Blood Count 4.83 M/mm3 (4.2-5.4); Red Cell Distribution Width 14.2 % (11.5-14.5); White Blood Count 9.2 K/mm3 (4.5-10.0)
[2024-11-06 13:22] LABS: Alanine Aminotransferase 18 U/L (6-35); Albumin Level 3.8 g/dL (3.5-5.1); Alkaline Phosphatase 28 U/L (38-126); Anion Gap 7 mmol/L (4-12); Aspartate Amino Transferase 27 U/L (14-36); Bilirubin,Total 0.4 mg/dL (0.2-1.3); Blood Urea Nitrogen 19 mg/dL (7-17); Calcium 9.7 mg/dL (8.4-10.2); Carbon Dioxide 27 mmol/L (22-30); Chloride 107 mmol/L (98-107); Estimated Glomerular Filt Rate 44; Glucose 101 mg/dL (65-110); Potassium 4.4 mmol/L (3.4-5.0); Sodium 141 mmol/L (137-145)
--- OUTSIDE RECORDS SUMMARY | 2024-11-07 12:49 | XMS_ITS | Continuity of Care Document ---
Author Organization [facility] Address [address] [place] [address] Phone Care Team Providers Care Bread Supervisor Name Role Phone Raina Kenney Unavailable Unavailable [...] Copied on Encounter Office/outpat ient Visit, Est [facility], [address], [place], [place], [id number], [place] tel:[phone] [facility] No Information Sep-0 7-201 0 Anne Marie Paris. [address] , [address], [place], [address], [place]. tel:[phone] [facility], [address], [place], [place], [address], [place] tel:[phone] [facility] No Information Sep-1 5-200 9 [facility] . [address] [facility], [address], [place], [place], [address], [place]. tel:[phone] Referring Provider: Raina Cain, [address], [place], [address]. tel:[phone] sulting Provider: Julianne Burton, [address] [facility], [place], [place], [facility]. tel:[phone] [facility], [address], [place], [place], [address], [place] tel:[phone] [facility] No Information Sep-0 1-200 9 Anne Marie Paris. [address] , [address], [place], [address], [place]. tel:[phone] Office/outpat ient Visit, [facility], [address], [place], [place], [address], [place] tel:[phone] [facility] No Information 8 Anne Marie Paris. [address] , [address], [place], [address], [place]. tel:[phone] [facility], [address] [place] [address] [address], [place], [place], [address], [place] tel:[phone] [facility] No Information 8 Katharina Kessler. [address] , [address], [place], [facility], [place]. tel:[phone] [facility], [address] [place] [address] [address], [place], [place], [address], [place] tel:[phone] [facility] No Information 200 7 Katharina Kessler. [address] , [address], [place], [facility], [place]. tel:[phone] Family History Family Member Type Diagnosis Age At Onset No Information Payers Payer name Insurance type Covered alliance party ID Mahesha alex(s) [place] [id number] Social History Type Description Quantity Date Captured [...]
--- OUTSIDE RECORDS SUMMARY | 2024-11-07 12:49 | XMS_ITS | Referral Summary ---
Author Organization [facility] [address] Address [address] [place] [address] Care Team Providers Care Telecommunications Engineer Name Role Phone Deniz Lujan MD Primary [...] often do you attend chur ch or quaker services? 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
--- OUTSIDE RECORDS SUMMARY | 2024-11-07 12:49 | XMS_ITS | Clinical Summary ---
Author Organization [facility] Address [address] [place] [address] Care Team Providers Care Lieutenant Fire Fighter Name Role Phone Deniz Lujan MD Primary Care Provider [phone] Allergies No known active allergies Medications gabapentin [...] Encounters Date Type Department Care Team Description 09/23/2024 External Device Data STL ABSTRACTION Provider, Abstract 09/23/2024 External Device Data STL ABSTRACTION Provider, Abstract 09/12/2024 External Device Data STL ABSTRACTION Provider, Abstract 09/11/2024 External Device Data STL ABSTRACTION Provider, Abstract 08/25/2024 External Device Data STL ABSTRACTION Provider, Abstract from Last 3 Months Social History Tobacco [...] Comments Blood Pressure 131/81 07/22/2024 11:47 AM FORMULATOR Pulse 80 07/22/2024 11:47 AM FORMULATOR Temperature 36.5 C (97.7 F) 07/22/2024 11:47 AM FORMULATOR Respiratory Rate 20 07/22/2024 11:47 AM FORMULATOR Oxygen Saturation 97% 07/22/2024 11:47 AM FORMULATOR Inhaled Oxygen Concentration - - Weight 75.3 kg (166 lb) 07/22/2024 11:47 AM FORMULATOR Height 154.9 cm (5' 1 ) 05/11/2022 12:03 PM CDT Body Mass Index 31.37 05/11/2022 12:03 PM CDT Plan of Treatment Upcoming Encounters Date Type Department Care Team (Late st Contact Info) Description 11/18/2024 11:30 AM CDT Office Visit [facility] Oncology and Hematology - [place] [address] [place] [address] [facility] 200 [place] [address] Thomas Bartholomew MD [address] [facility] [address] [place] [address] Health Maintenance Due Date Last Done Comments DTAP/TDAP/TD VACCINES (1 - Tdap) 1959 PNEUMOCOCCAL VACCINE 50+ YEARS (1 of 1 - PCV) 07/02/19 89 ZOSTER VACCINE (1 of 2) 1989 RSV VACCINE (60+ or ) (1 - 1-dose 75+ series) 2014 INFLUENZA VACCINE (#1) 2024 OSTEOPOROSIS SCREENING 05/29/2029 05/29/2024 Procedures Procedure Name Priority Date/Time Associated Diagnosis Comments XR DEXA BONE DENSITY AXIAL 1 OR MORE SITES Routine 05/29/2024 10:48 AM FORMULATOR from Last 3 Months or Most Recently Relevant to Health Maintenance Results * XR DEXA BONE DENSITY AXIAL 1 OR MORE SITES (05/29/2024 10:48 AM FORMULATOR) Anatomical Region Laterality Modality Other Dafne Owens AUTOMOTIVE GLASS SPECIALIST DIAGNOSTIC IMAGING ORDERABLES Final Result from Last 3 Months or Most Recently Relevant to Health Maintenance Insurance Care Teams Lieutenant Fire Fighter Relationship Specialty Start Date End Date Deniz Lujan MD [address] [facility] 120 [place] [address] PCP - General Family Practice 12/18/23
--- OUTSIDE RECORDS SUMMARY | 2024-11-07 12:49 | XMS_ITS | Clinical Summary ---
Author Organization [facility] Address [facility] [place] [address] Care Team Providers Care Home Visitor Home Base Head Start Name Role Phone Unavailable Primary Care Provider [...] Td Vaccines ( 1 - Tdap) 1959 Pneumococcal Vaccine: 50+ Ye ars (1 of 1 - PCV) 1989 Zoster Vaccines (1 of 2) 1989 RSV Immunization or 60+ Years (1 - 1-dose 75+ series) 2014 COVID-19 Vaccine (2023-2 5 season) 2024 Meningococcal B Vaccine Aged Out No l onger eligible based on patient's age to complete this topic Meningococcal Vaccine Aged Out No sergei john eligible based on patient's age to complete this topic RSV Immunizations Under 20 Months Aged Out No longer eligible based on patient's age to complete this topic
--- OUTSIDE RECORDS SUMMARY | 2024-11-07 12:49 | XMS_ITS | Clinical Summary ---
Author Organization [facility] [address] Address [address] [place] [address] Care Team Providers Care Osteopathic Medicine Teacher Name Role Phone Deniz Lujan MD Primary [...] often do you attend chur ch or druze services? More than 4 times per year [...] on file Legal Sex Female 2:05 AM PRESCHOOL TEACHER'S ASSISTANT Gender Identity Not on file Sexual Orientation [...] , 03/19/2020, 04/05/2018, Additional history exists Insurance [facility] [id number] [place] [address] HEALTHCARE Advance Directives For more information, please contact: [phone] * Full Code (Latest Code Status on File) Date Activated Date Inactivated Comments 11/20/2022 6:25 PM 11/28/2022 7:17 PM Care Teams Osteopathic Medicine Teacher Relationship Specialty Start Date End Date Deniz Lujan MD [address] [facility] 120 [place] [address] PCP - General Family Medicine 01/07/17
[2024-11-08 02:23] LABS: CA 15-3 14 U/mL (<32)
== END 2024-11-06 11:34 | disposition home or self-care (01) ==
PROVIDERS: PCP Family Medicine; Visit Provider Internal Medicine Hematology & Oncology
DX: C50.412 Malignant neoplasm of upper-outer quadrant of left female breast (principal); Z17.0 Estrogen receptor positive status [ER+]
CPT/HCPCS: 36415; 80053; 85025; 86300

== ENCOUNTER 2025-02-01 08:50 | Outpatient (CLI) | payer OTHER, SELFPAY ==
--- OUTSIDE RECORDS SUMMARY | 2025-02-01 09:02 | XMS_ITS | Referral Summary ---
Author Organization [facility] [address] Address [address] [place] [address] Care Team Providers Care Hospice Aide Name Role Phone Deniz Lujan MD Primary [...] often do you attend chur ch or amish services? More than 4 times per year 11/30/2022 Do you belong to any clubs o r organizations such as samaritan groups, unions, fraternal or athletic groups, or [...] on file Legal Sex Female 2:05 AM DANCE HISTORIAN Gender Identity Not on file Sexual Orientation [...] 3:20 AM CDT Height 154.9 cm (5' 0.98) 11/21/2022 3:20 AM CD T Body Mass Index 30.95 11/21/2022 3:20 AM CDT Plan of Treatment Not on file Insurance [facility] Advance Directives For more information, please contact: [phone] * Full Code (Latest Code Status on File) Date Activated Date Inactivated Comments 11/20/2022 6:25 PM 11/28/2022 7:17 PM Care Teams Hospice Aide Relationship Specialty Start Date End Date Deniz Lujan MD [address] [facility] [address] [place] [address] PCP - General Family Medicine 01/07/17
--- OUTSIDE RECORDS SUMMARY | 2025-02-01 09:02 | XMS_ITS | Clinical Summary ---
Author Organization [facility] [address] Address [address] [place] [address] Care Team Providers Care Electronic Commerce Specialist Name Role Phone Deniz Lujan MD Primary [...] often do you attend chur ch or baptism services? More than 4 times per year 11/30/2022 Do you belong to any clubs o r organizations such as adventism groups, unions, fraternal or athletic groups, or [...] on file Legal Sex Female 2:05 AM DIRECTOR HYDROGEN STORAGE ENGINEERING Gender Identity Not on file Sexual Orientation [...] 2024 06/26/2021, 09/22/2020, 09/01/2020 Influenza Vaccine (#1) 2025 , 03/19/2020, 04/05/2018, Additional history exists Insurance [facility] [id number] [place] [address] HEALTHCARE Advance Directives For more information, please contact: [phone] * Full Code (Latest Code Status on File) Date Activated Date Inactivated Comments 11/20/2022 6:25 PM 11/28/2022 7:17 PM Care Teams Electronic Commerce Specialist Relationship Specialty Start Date End Date Deniz Lujan MD [address] [facility] [address] [place] [address] PCP - General Family Medicine 01/07/17
--- OUTSIDE RECORDS SUMMARY | 2025-02-01 09:03 | XMS_ITS | Clinical Summary ---
Author Organization [facility] Address [address] [place] [address] Care Team Providers Care Chamber Worker Name Role Phone Deniz Lujan MD Primary Care Provider [phone] Allergies No known active allergies Medications gabapentin [...] Encounters Date Type Department Care Team Description 01/20/2025 External Device Data STL ABSTRACTION Provider, Abstract 01/19/2025 External Device Data STL ABSTRACTION Provider, Abstract 12/29/2024 External Device Data STL ABSTRACTION Provider, Abstract 12/08/2024 External Device Data STL ABSTRACTION Provider, Abstract 12/01/2024 External Device Data STL ABSTRACTION Provider, Abstract 11/26/2024 External Device Data STL ABSTRACTION Provider, Abstract 11/25/2024 External Device Data STL ABSTRACTION Provider, Abstract 11/24/2024 External Device Data STL ABSTRACTION Provider, Abstract 11/18/2024 11:30 AM CDT Office Visit [facility] Oncology and Hematology [facility] [place] [address] [place] [address] Thomas Bartholomew MD Malignant neoplasm of upper-outer quadrant of left breast in female, estrogen receptor positive (CMS/HCC) (Primary Dx) 11/17/2024 Orders Only [facility] Hematology [place] [address] [place] [address] Thomas Bartholomew MD 11/10/2024 Orders Only [facility] [address] [place] [address] [address] [place] [address] Thomas Bartholomew MD from Last [...] Sign Reading Time Taken Comments Blood Pressure 138/82 11/18/2024 11:35 AM CDT Pulse 76 11/18/2024 11:33 AM CDT Temperature 36.8 C (98.3 F) 11/18/2024 11:33 AM CDT Respiratory Rate 15 11/18/2024 11:3 3 AM CDT Oxygen Saturation 95% 11/18/2024 11: 33 AM CDT Inhaled Oxygen Concentration - - Weight 72.9 kg (160 lb 12.8 oz) 025 11:33 AM CDT Height 154.9 cm (5' 1) 05/11/2022 12:0 3 PM CDT Body Mass Index 30.38 05/11/2022 12:03 PM CDT Plan of Treatment Upcoming Encounters Date Type Department Care Team (Late st Contact Info) Description 05/26/2025 11:30 AM MATERIAL ASSISTANT Office Visit [facility] Oncology and Hematology [facility] [place] [address] [place] [address] Thomas Bartholomew MD [address] [facility] [address] [place] [address] Health Maintenance Due Date Last Done Comments DTAP/TDAP/TD VACCINES (1 - Tdap) 1959 PNEUMOCOCCAL VACCINE 50+ YEARS (1 of 1 - PCV) 07/02/19 89 ZOSTER VACCINE (1 of 2) 1989 RSV VACCINE (60+ or ) (1 - 1-dose 75+ series) 2014 INFLUENZA VACCINE (#1) 2025 OSTEOPOROSIS SCREENING 05/29/2029 05/29/2024 Procedures Procedure Name Priority Date/Time Associated Diagnosis Comments CBC WITH DIFFERENTIAL Routine 11/06/2024 2:41 PM CDT CHG CA 15 3 Routine 11/06/2024 2:16 PM CDT XR DEXA BONE DENSITY AXIAL 1 OR MORE SITES Routine 05/29/2024 10:48 AM MATERIAL ASSISTANT from Last 3 Months or Most Recently Relevant to Health Maintenance Results * CBC WITH DIFFERENTIAL (11/06/2024 2:41 PM CDT) Blood us Thomas Bartholomew MD HEMATOLOGY ORDERABLES Final Res ult * CHG CA 15 3 (11/06/2024 2:16 PM CDT) us Thomas Bartholomew MD CHG - LABORATORY Final Result * XR DEXA BONE DENSITY AXIAL 1 OR MORE SITES (05/29/2024 10:48 AM MATERIAL ASSISTANT) Anatomical Region Laterality Modality Other Dafne Owens DOT ETCHER APPRENTICE DIAGNOSTIC IMAGING ORDERABLES Final Result from Last 3 Months or Most Recently Relevant to Health Maintenance Insurance Care Teams Chamber Worker Relationship Specialty Start Date End Date Deniz Lujan MD [address] [facility] [address] [place] [address] PCP - General Family Practice 12/18/23
--- OUTSIDE RECORDS SUMMARY | 2025-02-01 09:03 | XMS_ITS | Clinical Summary ---
Author Organization [facility] Address [facility] [place] [address] Care Team Providers Care Library Paraprofessional Name Role Phone Unavailable Primary Care Provider [...]
--- OUTSIDE RECORDS SUMMARY | 2025-02-01 09:03 | XMS_ITS | Continuity of Care Document ---
Author Organization [facility] Address [address] [place] [address] Phone Care Team Providers Care Missile Mechanic Name Role Phone Raina Kenney Unavailable Unavailable [...] Copied on Encounter Office/outpat ient Visit, Est [facility], [address], [place], [place], [address], [place] tel:[phone] [facility] No Information Sep-0 7-201 0 Anne Marie Paris. [address], [place], [address], [place]. tel:[phone] [facility], [address], [place], [place], [address], [place] tel:[phone] [facility] No Information Sep-1 5-200 9 [facility] . [address] [facility], [address], [place], [place], [address], [place]. tel:[phone] Referring Provider: Raina Cain, [address], [place], [address]. tel:[phone] sulting Provider: Julianne Burton, [address] [facility], [place], [place], [facility]. tel:[phone] [facility], [address], [place], [place], [address], [place] tel:[phone] [facility] No Information Sep-0 1-200 9 Anne Marie Paris. [address] [facility] [address] [facility] , [address], [place], [address], [place]. tel:[phone] Office/outpat ient Visit, [facility], [address], [place], [place], [address], [place] tel:[phone] [facility] No Information 8 Anne Marie Paris. [address] , [address], [place], [address], [place]. tel:[phone] [facility], [address] [place] [address] [address], [place], [place], [address], [place] tel:[phone] [facility] No Information 8 Katharina Kessler. [address] [facility] [address] , [address], [place], [place], [facility], [place]. tel:[phone] [facility], [address] [place] [address] [address], [place], [place], [address], [place] tel:[phone] [facility] No Information 200 7 Katharina Kessler. [address] , [address], [place], [place], [facility], [place]. tel:[phone] Family History Family Member Type Diagnosis Age At Onset No Information Payers Payer name Insurance type Covered constitution party ID Mahesha alex(s) [place] [id number] Social History Type Description Quantity Date Captured [...]
[2025-02-01 09:32] LABS: Add Urine Microscopic? YES; Appearance Urine Clear (Clear); Glucose Urine UA Negative (Negative); Leukocyte Esterase Ur 2+ LEU/UL (Negative); Nitrate Urine Negative (Negative); Non Pathogenic Casts 0-2; Specific Grav Ur 1.011 (1.001-1.035)
[2025-02-01 09:50] LABS: Hematocrit 43.9 % (37.0-47.0); Hemoglobin 14.0 g/dL (12.0-15.0); Mean Corpuscular HGB Conc 31.9 g/dl (32-36); Mean Corpuscular Hemoglobin 28.6 pg (26-34); Mean Corpuscular Volume 89.8 fl (80-100); Platelet Count Result 276 k/mm3 (150-375); Red Blood Count 4.89 M/mm3 (4.2-5.4); White Blood Count 7.9 K/mm3 (4.5-10.0)
[2025-02-01 10:06] LABS: Hemoglobin A1C 6.5 % (<5.7)
[2025-02-01 10:11] LABS: MALB Creatinine Ratio 14.2 mg/g (0-30)
[2025-02-01 10:20] LABS: Alanine Aminotransferase 15 U/L (6-35); Albumin Level 3.6 g/dL (3.5-5.1); Alkaline Phosphatase 24 U/L (38-126); Anion Gap 8 mmol/L (4-12); Aspartate Amino Transferase 28 U/L (14-36); Bilirubin,Total 0.5 mg/dL (0.2-1.3); Blood Urea Nitrogen 19 mg/dL (7-17); Calcium 9.5 mg/dL (8.4-10.2); Carbon Dioxide 25 mmol/L (22-30); Chloride 108 mmol/L (98-107); Cholesterol 113 mg/dL (0-200); Estimated Glomerular Filt Rate 44; Glucose 120 mg/dL (65-110); HDL Direct 28 mg/dL; Potassium 4.1 mmol/L (3.4-5.0); Sodium 141 mmol/L (137-145); Total Protein 6.7 g/dL (6.3-8.2); Triglycerides 162 mg/dL (<150)
[2025-02-01 10:56] LABS: Thyroid Stimulating Hormone 2.920 uIU/mL (0.465-4.680)
== END 2025-02-01 08:51 | disposition home or self-care (01) ==
LOC: ANHLAB 08:53
PROVIDERS: PCP Family Medicine; Visit Provider Family Medicine
DX: I12.9 Hypertensive chronic kidney disease with stage 1 through stage 4 chronic kidney disease, or unspecified chronic kidney disease (principal); E11.22 Type 2 diabetes mellitus with diabetic chronic kidney disease; N18.32 Chronic kidney disease, stage 3b; E78.5 Hyperlipidemia, unspecified
CPT/HCPCS: 36415; 80053; 80061; 81001; 82043; 83036; 84443; 85027

== ENCOUNTER 2025-02-10 11:58 | Outpatient (CLI) | payer OTHER, SELFPAY ==
--- OUTSIDE RECORDS SUMMARY | 2025-02-10 12:23 | XMS_ITS | Encounter Summary ---
Author Organization [facility] Address [address] [place] [address] Care Team Providers Care Guest Specialist Name Role Phone Deniz Lujan MD Primary Care Provider Encounter Details Date Type Department Care Team (Late st Contact Info) Description 02/09/2025 External Device Data STL ABSTRACTION Provider, Abstract NO ADDRESS ON FILE Social History Tobacco Use Types Packs/Day Years Used Date Smoking Tobacco: Never Smokeless Tobacco: Never Comments Unknown Sex and Gender Information Value Date Recorded Sex Assigned at Not on file Legal Sex Female 10:37 PM CDT Gender Identity Not on file Sexual Orientation Not on file documented as of this encounter Plan of Treatment Upcoming Encounters Date Type Department Care Team (Late st Contact Info) Description 05/26/2025 11:30 AM JOURNEYMAN PAINTER Office Visit [facility] Oncology and Hematology - [place] [address] [place] [address] [address] [place] [address] Thomas Bartholomew MD [address] [facility] [address] [place] [address] documented as of this encounter Visit Diagnoses Not on filedocumented in this encounter Care Teams Guest Specialist Relationship Specialty Start Date End Date Deniz Lujan MD [address] [facility] 120 [place] [address] PCP - General Family Practice 12/18/23 documented as of this encounter
--- OUTSIDE RECORDS SUMMARY | 2025-02-10 12:24 | XMS_ITS | Clinical Summary ---
Author Organization [facility] [address] Address [address] [place] [address] Care Team Providers Care Provider Relations Representative Name Role Phone Deniz Lujan MD Primary [...] often do you attend chur ch or jain services? More than 4 times per year 11/30/2022 Do you belong to any clubs o r organizations such as catholic groups, unions, fraternal or athletic groups, or [...] on file Legal Sex Female 2:05 AM STAMPING OPERATOR Gender Identity Not on file Sexual Orientation [...] , 03/19/2020, 04/05/2018, Additional history exists Insurance HEALTHCARE [id number] [place] [address] HEALTHCARE Advance Directives For more information, please contact: [phone] * Full Code (Latest Code Status on File) Date Activated Date Inactivated Comments 11/20/2022 6:25 PM 11/28/2022 7:17 PM Care Teams Provider Relations Representative Relationship Specialty Start Date End Date Deniz Lujan MD [address] [facility] 120 [place] [address] PCP - General Family Medicine 01/07/17
--- OUTSIDE RECORDS SUMMARY | 2025-02-10 12:24 | XMS_ITS | Clinical Summary ---
Author Organization [facility] Address [facility] [place] [address] Care Team Providers Care Tipping Machine Operator Automatic Name Role Phone Unavailable Primary Care Provider [...]
--- OUTSIDE RECORDS SUMMARY | 2025-02-10 12:24 | XMS_ITS | Clinical Summary ---
Author Organization [facility] Address [address] [place] [address] Care Team Providers Care Personnel Officer Name Role Phone Deniz Lujan MD Primary Care Provider [phone] Allergies No known active allergies Medications gabapentin [...] Encounters Date Type Department Care Team Description 02/09/2025 External Device Data STL ABSTRACTION Provider, Abstract 01/20/2025 External Device Data STL ABSTRACTION Provider, [...] Abstract 11/18/2024 11:30 AM CDT Office Visit [facility] Oncology and Hematology [facility] [address] [place] [address] Thomas Bartholomew MD Malignant neoplasm of upper-outer quadrant of left breast in female, estrogen receptor positive (CMS/HCC) (Primary Dx) 11/17/2024 Orders Only [facility] Oncology and Hematology [facility] [address] [place] [id number] Thomas Bartholomew MD 11/10/2024 Orders Only [facility] Oncology and Hematology [facility] [address] [place] [address] Thomas Bartholomew MD from Last 3 Months [...] st Contact Info) Description 05/26/2025 11:30 AM INSPECTION MANAGER Office Visit [facility] Oncology [facility] Hematology [facility] [address] [place] [address] Thomas Bartholomew MD [address] [place] [address] Health Maintenance Due Date Last [...] OR MORE SITES Routine 05/29/2024 10:48 AM INSPECTION MANAGER from Last 3 Months or Most Recently Relevant to Health Maintenance Results * XR DEXA BONE DENSITY AXIAL 1 OR MORE SITES (05/29/2024 10:48 AM INSPECTION MANAGER) Anatomical Region Laterality Modality Other Dafne Owens AUTOMATIC OPERATOR DIAGNOSTIC IMAGING ORDERABLES Final Result from Last 3 Months or Most Recently Relevant to Health Maintenance Insurance [facility] [place]: [address] [address] Care Teams Personnel Officer Relationship Specialty Start Date End Date Deniz Lujan MD [address] [facility] [address] [place] [address] PCP - General Family Practice 12/18/23
[2025-02-10 12:30] LABS: Add Urine Microscopic? YES; Appearance Urine Clear (Clear); Glucose Urine UA Negative (Negative); Leukocyte Esterase Ur 1+ LEU/UL (Negative); Nitrate Urine Negative (Negative); Non Pathogenic Casts 0-2; Specific Grav Ur 1.006 (1.001-1.035)
== END 2025-02-10 11:59 | disposition home or self-care (01) ==
LOC: ANHLAB 11:59
PROVIDERS: PCP Family Medicine; Visit Provider Physician Assistant Medical
DX: N39.0 Urinary tract infection, site not specified (principal)
CPT/HCPCS: 81001; 87086

== ENCOUNTER 2025-05-17 11:22 | Outpatient (CLI) | payer OTHER, SELFPAY ==
--- OUTSIDE RECORDS SUMMARY | 2010-03-14 08:15 | XMS_ITS | Continuity of Care Document ---
Author Organization [facility] Address [address] [place] [address] Phone Care Team Providers Care Callisthenics Instructor Name Role Phone Raina Kenney Unavailable Unavailable Procedures Procedure Date Office/outpatient Visit, Est Progressive Lens, Polycarb Frames Deluxe Tax - Medical Eye Exam & Treatment Refraction Office/outpatient Visit, Est Eye Exam & Treatment Refraction Eye Exam & Treatment Advance Directives Directive Yes / No Effective Date File Name No Information Encounters Encounter Description Practice Location Reason(s) For Visit Diagnoses Date Provider Providers Copied on Encounter Office/outpat ient Visit, Est [facility], [address], [place], [place], [id number], [place] tel:[phone] [facility] No Information Sep-0 7-201 0 Anne Marie Paris. [address] , [address], [place], [address], [place]. tel:[phone] [facility], [address], [place], [place], [id number], [place] tel:[phone] [facility] No Information Sep-1 5-200 9 [facility] . [address], [address], [place], [place], [id number], [place]. tel:[phone] Referring Provider: Raina Cain, [address], [place], [address]. tel:[phone] sulting Provider: Julianne Burton, [address] [facility], [place], [place], [facility]. tel:[phone] [facility] Eye [facility], [address], [place], [place], [id number], [place] tel:[phone] [facility] No Information Sep-0 1-200 9 Anne Marie Paris. [address] , [address], [place], [address], [place]. tel:[phone] [place], [facility] [address], [place], [place], [id number], [place] tel:[phone] [facility] No Information 8 Anne Marie Paris. [address] , [address], [place], [address], [place]. tel:[phone] [facility], [id number] [place] [address] [address], [place], [place], [id number], [place] tel:[phone] [facility] No Information 8 Katharina Kessler. [address] , [address], [place], [place], [facility], [place]. tel:[phone] [facility], [id number] [place] [address] [address], [place], [place], [id number], [place] tel:[phone] [facility] No Information 200 7 Katharina Kessler. [address] , [address], [place], [place], [facility], [place]. tel:[phone] Family History Family Member Type Diagnosis Age At Onset No Information Payers Payer name Insurance type Covered libertarian ID Mahesha alex(s) [place] [id number] Social History Type Description Quantity Date Captured Comments Sex Female Smoking Status No Information Chief Complaint And Reason For Visit No Information Reason For Referral Reason For Referral No Information History Of Present Illness Encounter Date Complaint History Of Prese nt Illness No Information Functional Status Date Functional Assessmen t No Information Instructions Date Instruction Additional Infor mation No Information Assessments Type Assessment Date No Information Patient Care Teams Name Effective Dates (start - stop) Status Members No Information
[2025-05-17 11:36] LABS: Hematocrit 43.0 % (37.0-47.0); Hemoglobin 14.0 g/dL (12.0-15.0); Immature Granulocyte Percent A 0.2 % (0-0.5); Lymphocytes Absolute Auto 4.37 K/mm3 (0.9-3.2); Mean Corpuscular HGB Conc 32.6 g/dl (32-36); Mean Corpuscular Hemoglobin 29.4 pg (26-34); Mean Corpuscular Volume 90.3 fl (80-100); Nucleated Red Blood Cells Absolute Auto 0.000 K/mm3 (0.0-0.012); Nucleated Red Blood Cells Perc 0.0 % (0.0-0.2); Platelet Count Result 277 k/mm3 (150-375); Red Blood Count 4.76 M/mm3 (4.2-5.4); White Blood Count 9.3 K/mm3 (4.5-10.0)
[2025-05-17 11:56] LABS: Alanine Aminotransferase 16 U/L (6-35); Albumin Level 3.7 g/dL (3.5-5.1); Alkaline Phosphatase 24 U/L (38-126); Anion Gap 7 mmol/L (4-12); Aspartate Amino Transferase 22 U/L (14-36); Bilirubin,Total 0.4 mg/dL (0.2-1.3); Blood Urea Nitrogen 27 mg/dL (7-17); Calcium 9.7 mg/dL (8.4-10.2); Carbon Dioxide 26 mmol/L (22-30); Chloride 107 mmol/L (98-107); Estimated Glomerular Filt Rate 40; Glucose 160 mg/dL (65-110); Potassium 4.1 mmol/L (3.4-5.0); Sodium 140 mmol/L (137-145); Total Protein 6.9 g/dL (6.3-8.2)
--- OUTSIDE RECORDS SUMMARY | 2025-05-17 12:14 | XMS_ITS | Clinical Summary ---
Author Organization [facility] Address [address] [place] [address] Care Team Providers Care Manager Audio Name Role Phone Unavailable Primary Care Provider [...] - 1-dose 75+ series) 2014 COVID-19 Vaccine ( - 2024-2 6 season) 2025 Influenza Adult (#1) 2025 Hepatitis A Vaccines Aged Out No long er eligible based on patient's age to complete this topic Meningococcal B Vaccine Aged Out No l onger eligible based on patient's age to complete this topic Meningococcal Vaccine Aged Out No sergei john eligible based on patient's age to complete this topic RSV Immunizations Under 20 Months Aged Out No longer eligible based on patient's age to complete this topic
--- OUTSIDE RECORDS SUMMARY | 2025-05-17 12:14 | XMS_ITS | Clinical Summary ---
Author Organization [facility] [address] Address [address] [place] [address] Care Team Providers Care Sizer Machine Name Role Phone Deniz Lujan MD Primary [...] Tobacco Cessation:Counseling Given: No Social Connection and Isolation Panel Answer Date Recorded In a typical week, [...] any clubs o r organizations such as zoroastrianism groups, unions, fraternal or athletic groups, or [...] on file Legal Sex Female 2:05 AM WASHCLOTH FOLDER Gender Identity Not on file Sexual Orientation [...] Assessment 11/29/2023 11/28/2022 Covid-19 Vaccine (4 - 2024-2 6 season) 2025 06/26/2021, 09/22/2020, 09/01/2020 Influenza Vaccine (#1) 2025 , 03/19/2020, 04/05/2018, Additional history exists Insurance [facility] [id number] [place] [address] HEALTHCARE Advance Directives For more information, please contact: [phone] * Full Code (Latest Code Status on File) Date Activated Date Inactivated Comments 11/20/2022 6:25 PM 11/28/2022 7:17 PM Care Teams Sizer Machine Relationship Specialty Start Date End Date Deniz Lujan MD [address] [facility] [address] [place] [address] PCP - General Family Medicine 01/07/17
--- OUTSIDE RECORDS SUMMARY | 2025-05-17 12:14 | XMS_ITS | Clinical Summary ---
Author Organization [facility] Address [address] [place] [address] Care Team Providers Care Second Crusher Name Role Phone Deniz Lujan MD Primary Care Provider [phone] Allergies No known active allergies Medications gabapentin [...] Encounters Date Type Department Care Team Description 04/20/2025 External Device Data STL ABSTRACTION Provider, Abstract 04/13/2025 External Device Data STL ABSTRACTION Provider, Abstract 03/23/2025 External Device Data STL ABSTRACTION Provider, Abstract 02/23/2025 External Device Data STL ABSTRACTION Provider, Abstract [...] st Contact Info) Description 05/26/2025 11:30 AM LOG SAWYER Office Visit [facility] Oncology and Hematology - [place] [address] [facility] [address] [place] [address] Thomas Bartholomew MD [address] [facility] [address] [place] [address] Health Maintenance Due Date Last Done Comments DTAP/TDAP/TD VACCINES (1 - Tdap) 1959 PNEUMOCOCCAL VACCINE 50+ YEARS (1 of 1 - PCV) 07/02/19 89 ZOSTER VACCINE (1 of 2) 1989 RSV VACCINE (60+ or ) (1 - 1-dose 75+ series) 2014 Medicare Advantage ([place]) Prev entative Visit/Annual Wellness Visit 07/08/2024 INFLUENZA VACCINE (#1) 2025 OSTEOPOROSIS SCREENING 05/29/2029 05/29/2024 Procedures Procedure Name Priority Date/Time Associated Diagnosis Comments XR DEXA BONE DENSITY AXIAL 1 OR MORE SITES Routine 05/29/2024 10:48 AM LOG SAWYER from Last 3 Months or Most Recently Relevant to Health Maintenance Results * XR DEXA BONE DENSITY AXIAL 1 OR MORE SITES (05/29/2024 10:48 AM LOG SAWYER) Anatomical Region Laterality Modality Other Dafne Owens GRAVURE PRESS SET UP OPERATOR DIAGNOSTIC IMAGING ORDERABLES Final Result from Last 3 Months or Most Recently Relevant to Health Maintenance Insurance [facility] Address: [place] [address] Care Teams Second Crusher Relationship Specialty Start Date End Date Deniz Lujan MD [address] [facility] [address] [place] [address] PCP - General Family Practice 12/18/23
== END 2025-05-17 11:23 | disposition home or self-care (01) ==
LOC: ANHLAB 11:23
PROVIDERS: PCP Family Medicine; Visit Provider Internal Medicine Hematology & Oncology
DX: C50.412 Malignant neoplasm of upper-outer quadrant of left female breast (principal); Z17.0 Estrogen receptor positive status [ER+]
CPT/HCPCS: 36415; 80053; 85025; 86300